=== PATIENT | female | born 1980 | race Native Hawaiian/Other Pacific Islander ===

== ENCOUNTER 2018-06-22 20:25 | Emergency (ER) | payer BC, OTHER ==
[2018-06-23] MEDS ORDERED: SODIUM CHLORIDE 0.9% 1,000 ML IV ONE (03:03)
[2018-06-23] MEDS ORDERED: LORazepam 2 MG/ML INJ IV STA (03:03)
--- NOTE | 2018-06-23 03:07 | ED ---
Alcohol HPI - General Chief Complaint: Alcohol Stated Complaint: Flank pain Time Seen by Provider: 06/22/18 21:08 Source: patient Mode of arrival: ambulatory Limitations: no limitations - History of Present Illness Initial Comments: Patient is 37-year-old woman presenting with complaint of concerns about her drinking. She been drinking constantly for 8 days. Last drink just previously. She denies any recent fall or trauma. She does have complaint that she is feeling anxious about stopping. Patient denies suicidal ideation. MD Complaint: alcohol intoxication Last Drink: just [employer] Previous Visits for Alcohol Intoxication?: No Recent Trauma: No Associated Symptoms: other (Anxiety) Treatments Prior to Arrival: none - Related Data Home Medications Medication Instructions Recorded Confirmed Citalopram Hydrobromide [CeleXA] 10 mg PO DAILY 07/26/15 07/26/15 Previous Rx's Medication Instructions Recorded Ciprofloxacin HCl [Cipro] 500 mg PO Q12HR #14 tablet 07/26/15 LORazepam [Ativan] 1 mg PO TID 3 Days #9 tab 06/23/18 chlordiazePOXIDE HCl [Librium] 25 mg PO TID 3 Days #9 capsule 06/23/18 Allergies Allergy/AdvReac Type Severity Reaction Status Date / Time No Known Allergies Allergy Verified 06/22/18 20:46 Review of Systems ROS Statement: Those systems with pertinent positive or pertinent negative responses have been documented in the HPI. ROS Other: All systems not noted in ROS Statement are negative. Constitutional: Denies: fever, chills Eyes: Denies: vision change Respiratory: Denies: cough, dyspnea Cardiovascular: Denies: chest pain, syncope Gastrointestinal: Denies: abdominal pain, vomiting, diarrhea Musculoskeletal: Denies: back pain Skin: Denies: rash Neurological: Denies: headache Psychiatric: Reports: anxiety. Denies: auditory hallucinations, visual hallucinations, homicidal thoughts, suicidal thoughts Past Medical History Past Medical History: No Reported History History of Any Multi-Drug Resistant Organisms: None Reported Past Surgical History: Tonsillectomy Past Psychological History: Anxiety, Depression Smoking Status: Current every day smoker Past Alcohol Use History: Daily, Heavy Past Drug Use History: None Reported General Exam Limitations: no limitations General appearance: alert, in no apparent distress Head exam: Present: atraumatic, normocephalic Eye exam: Present: normal appearance. Absent: scleral icterus, conjunctival injection ENT exam: Present: normal oropharynx Neck exam: Present: normal inspection, full ROM. Absent: tenderness Respiratory exam: Present: normal lung sounds bilaterally. Absent: respiratory distress, wheezes, rales, rhonchi, stridor Cardiovascular Exam: Present: regular rate, normal rhythm, normal heart sounds. Absent: systolic murmur, diastolic murmur, rubs, gallop GI/Abdominal exam: Present: soft. Absent: distended, tenderness, guarding, rebound Neurological exam: Present: alert Psychiatric exam: Present: anxious. Absent: homicidal ideation, suicidal ideation Skin exam: Present: warm, dry, intact, normal color. Absent: rash Course Vital Signs 06/22/18 06/23/18 06/23/18 20:41 01:58 06:21 Temperature 97.8 F 97.3 F L Pulse Rate 120 H 117 H 16 L Respiratory 22 16 93 H Rate Blood Pressure 153/107 117/84 110/80 O2 Sat by Pulse 99 100 Oximetry Medical Decision Making - Medical Decision Making Patient seen and evaluated. Currently no admission criteria. Patient is given medication for her anxiety and help to bridge her until she can be seen [facility] which she plans present to in the morning. - Lab Data Lab Results 06/23/18 Range/Units 03:01 Urine Color Colorless Urine Appearance Clear (Clear) Urine pH 6.5 (5.0-8.0) Ur Specific [place] 1.002 (1.001-1.035) Urine Protein Negative (Negative) Urine Glucose (UA) Negative (Negative) Urine Ketones Negative (Negative) Urine Blood Negative (Negative) Urine Nitrite Negative (Negative) Urine Bilirubin Negative (Negative) Urine Urobilinogen <2.0 (<2.0) mg/dL Ur Leukocyte Esterase Negative (Negative) Urine Opiates Screen Not Detected (NotDetected) Ur Oxycodone Screen Not Detected (NotDetected) Urine Methadone Screen Not Detected (NotDetected) Ur Propoxyphene Screen Not Detected (NotDetected) Ur Barbiturates Screen Not Detected (NotDetected) U Tricyclic Antidepress Not Detected (NotDetected) Ur Phencyclidine Scrn Not Detected (NotDetected) Ur Amphetamines Screen Not Detected (NotDetected) U Methamphetamines Scrn Not Detected (NotDetected) U Benzodiazepines Scrn Not Detected (NotDetected) Urine Cocaine Screen Not Detected (NotDetected) U Marijuana (THC) Screen Not Detected (NotDetected) Disposition Clinical Impression: Alcoholic intoxication Disposition: HOME SELF-CARE Condition: Good Instructions: Alcohol Intoxication (ED) Prescriptions: chlordiazePOXIDE HCl [Librium] 25 mg PO TID 3 Days #9 capsule LORazepam [Ativan] 1 mg PO TID 3 Days #9 tab Is patient prescribed a controlled substance at d/c from ED?: No Referrals: Isaias Johnson MD [Primary Care Provider] - 1-2 days
[2018-06-23 03:14] LABS: Appearance,Urine Clear (Clear); Bilirubin,Urine Negative (Negative); Blood,Urine Negative (Negative); Color,Urine Colorless; Glucose,Urine (UA) Negative (Negative); Ketones,Urine Negative (Negative); Leukocyte Esterase,Urine Negative (Negative); Nitrite,Urine Negative (Negative); PH, Urine 6.5 (5.0-8.0); Protein,Urine Negative (Negative); Specific Gravity,Urine 1.002 (1.001-1.035); Urobilinogen,Urine <2.0 mg/dL (<2.0)
[2018-06-23] MEDS ORDERED: chlordiazePOXIDE 25 MG CAP PO ONE (03:15)
[2018-06-23 03:39] LABS: Amphetamine Screen,Urine Not Detected (NotDetected); Barbiturate Screen,Urine Not Detected (NotDetected); Benzodiazepines Screen,Urine Not Detected (NotDetected); Cocaine Screen,Urine Not Detected (NotDetected); Methadone Screen, Urine Not Detected (NotDetected); Opiate Screen,Urine Not Detected (NotDetected); Oxycodone Screen, Urine Not Detected (NotDetected); Phencyclidine Screen,Urine Not Detected (NotDetected); Tricyclic Antidepressant,Urine Not Detected (NotDetected); Urn Cannabinoid Scrn Not Detected (NotDetected)
[2018-06-23] MEDS ORDERED: ONDANSETRON 4 MG/2 ML VIAL IVP STA (03:54)
[2018-06-23 06:22] VITALS: BP 110/80; PULSE 16; RESP 93; TEMP 97.3
== END 2018-06-23 06:21 | disposition home or self-care (01) ==
LOC: EC 20:25
DX: F10.129 Alcohol abuse with intoxication, unspecified (principal); F41.9 Anxiety disorder, unspecified; F32.9 Major depressive disorder, single episode, unspecified; F17.200 Nicotine dependence, unspecified, uncomplicated; Z79.899 Other long term (current) drug therapy
CPT/HCPCS: 81003; 80306; 99284; 96374; 96375; 96361; J2060; J2405; 82075

== ENCOUNTER 2021-12-21 15:16 | Emergency (ER) | payer OTHER ==
[2021-12-21 17:15] LABS: Appearance,Urine Clear (Clear); Bilirubin,Urine Negative (Negative); Blood,Urine Negative (Negative); Color,Urine Yellow; Glucose,Urine (UA) Negative (Negative); Ketones,Urine Trace (Negative); Leukocyte Esterase,Urine Negative (Negative); Nitrite,Urine Negative (Negative); Protein,Urine Trace (Negative); Specific Gravity,Urine 1.015 (1.001-1.035); Urobilinogen,Urine <2.0 mg/dL (<2.0)
[2021-12-21] MEDS ORDERED: SODIUM CHLORIDE 0.9% 1,000 ML IV STA (18:16)
[2021-12-21 18:46] LABS: Basophils % (A) 0 %; Eosinophils # (A) 0.1 k/uL (0-0.7); Eosinophils % (A) 1 %; HCT 37.5 % (34.0-46.0); HGB 12.1 gm/dL (11.4-16.0); Lymphocytes # (A) 1.8 k/uL (1.0-4.8); Lymphocytes % (A) 21 %; MCHC 32.2 g/dL (31.0-37.0); MCV 96.1 fL (80.0-100.0); Mean Platelet Volume 8.3; Monocytes # (A) 0.3 k/uL (0-1.0); Monocytes % (A) 3 %; Neutrophils # (A) 6.6 k/uL (1.3-7.7); Neutrophils % (A) 74 %; Platelet Count 154 k/uL (150-450); WBC 8.9 k/uL (3.8-10.6)
[2021-12-21 18:50] LABS: ALT 22 U/L (4-34); AST 37 U/L (14-36); African American GFR (CKD) >90 (>60 ml/min/1.73 sqM); Albumin 4.2 g/dL (3.5-5.0); Alkaline Phosphatase 122 U/L (38-126); Anion Gap 11 mmol/L; Blood Urea Nitrogen 7 mg/dL (7-17); Carbon Dioxide 18 mmol/L (22-30); Chloride 105 mmol/L (98-107); Glucose 89 mg/dL (74-99); Non-African American GFR(CKD) >90 (>60 ml/min/1.73 sqM); Potassium 3.5 mmol/L (3.5-5.1); Sodium 134 mmol/L (137-145); Total Bilirubin 4.3 mg/dL (0.2-1.3)
--- NOTE | 2021-12-21 19:22 | ED ---
Nausea/Vomiting/Diarrhea HPI - General Source: patient, RN notes reviewed Mode of arrival: ambulatory Limitations: no limitations - History of Present Illness MD complaint: nausea, vomiting Onset/Timin -: days(s) Description of Vomiting: bilious Associated Abdominal Pain: Yes Location: RUQ <Susanna Wright - Last Filed: 12/21/21 19:37> <Blade Ovalles - Last Filed: 12/21/21 20:39> - General Chief complaint: Nausea/Vomiting/Diarrhea Stated complaint: Vomiting, Abdominal Pain, Liver History Time Seen by Provider: 12/21/21 16:22 - History of Present Illness Initial comments: This is a 41-year-old female who presents to the emergency department for nausea and vomiting. Patient states that last night she had a significant bout of nausea and vomiting with associated right upper quadrant pain. She does have known gallstones and a history of liver disease. She also states that she has stage II esophageal varices, which is a concern with the repeated vomiting. Her primary care provider advised she come to the emergency department to have her liver enzymes reassessed. She has not had imaging of the gallbladder in several years, and states that because of the liver disease, she was told that removing the gallbladder could end up being a fatal procedure. By the time the patient was evaluated in the emergency department, her symptoms had subsided quite substantially. Denies any fevers, chills, sore throat, cough, dyspnea, chest pain, palpitations, diarrhea, back pain, or headaches. (Susanna Wright) - Related Data Home Medications Medication Instructions Recorded Confirmed Citalopram Hydrobromide [CeleXA] 10 mg PO DAILY 07/26/15 07/26/15 Previous Rx's Medication Instructions Recorded Ciprofloxacin HCl [Cipro] 500 mg PO Q12HR #14 tablet 07/26/15 LORazepam [Ativan] 1 mg PO TID 3 Days #9 tab 06/23/18 chlordiazePOXIDE HCl [Librium] 25 mg PO TID 3 Days #9 capsule 06/23/18 Allergies Allergy/AdvReac Type Severity Reaction Status Date / Time No Known Allergies Allergy Verified 12/21/21 15:52 Review of Systems ROS Other: All systems not noted in ROS Statement are negative. <Susanna Wright - Last Filed: 12/21/21 19:37> ROS Other: All systems not noted in ROS Statement are negative. <Blade Ovalles - Last Filed: 12/21/21 20:39> ROS Statement: Those systems with pertinent positive or pertinent negative responses have been documented in the HPI. Past Medical History Past Medical History: Liver Disease History of Any Multi-Drug Resistant Organisms: None Reported Past Surgical History: Tonsillectomy Past Psychological History: Anxiety, Depression Smoking Status: Former smoker Past Alcohol Use History: Daily, Heavy Past Drug Use History: None Reported <Susanna Wright - Last Filed: 12/21/21 19:37> General Exam Limitations: no limitations General appearance: alert, in no apparent distress Head exam: Present: atraumatic, normocephalic, normal inspection Respiratory exam: Present: normal lung sounds bilaterally. Absent: respiratory distress, wheezes, rales, rhonchi, stridor Cardiovascular Exam: Present: regular rate, normal rhythm, normal heart sounds. Absent: systolic murmur, diastolic murmur, rubs, gallop, clicks GI/Abdominal exam: Present: soft, tenderness (RUQ), normal bowel sounds. Absent: distended, guarding, rebound, rigid Neurological exam: Present: alert, oriented X3, CN II-XII intact Psychiatric exam: Present: normal affect, normal mood Skin exam: Present: warm, dry, intact, normal color. Absent: rash <Susanna Wright - Last Filed: 12/21/21 19:37> Course Vital Signs 12/21/21 12/21/21 15:49 18:32 Temperature 98.3 F Pulse Rate 90 95 Respiratory 16 16 Rate Blood Pressure 109/69 113/53 O2 Sat by Pulse 99 100 Oximetry Medical Decision Making - Lab Data Result diagrams: 12/21/21 18:36 12/21/21 18:36 - Radiology Data Radiology results: report reviewed, image reviewed <Susanna Wright - Last Filed: 12/21/21 19:37> - Lab Data Result diagrams: 12/21/21 18:36 12/21/21 18:36 <Blade Ovalles - Last Filed: 12/21/21 20:39> - Medical Decision Making This is a 41-year-old female who presents to the emergency department with nausea and vomiting. Lab work reveals an elevated total bilirubin. Fractionated bilirubin obtained, revealing an unconjugated bilirubin of 3.3 and a delta bilirubin of 0.9. Gallbladder US obtained. Case signed out to ED attending. (Susanna Wright) Patient was sent out to me by previous shift physician professional nursing assistant, Lisa christopher. Briefly, patient is a 41-year-old female presents to the emergency department for nausea and vomiting. She has history of esophageal varices. She had a discussion with her primary care doctor and was instructed to come to the ER for evaluation. Patient allegedly has a large esophageal varices that PCP is concerned that if she continued to have retching and vomiting that she could have bleeding from one of these variceal sites. Plan [place] follow-up with ultrasound. Ultrasound shows cholelithiasis without any acute abdominal processes. There also appears to be hepatic steatosis. Labs are unremarkable. Her liver enzymes are normal. Urinalysis is negative. Patient was observed in the emergency department for approximately 5 hours and 15 minutes. She is reevaluated bedside 8:35 PM finally to medical condition. Patient will be discharged and advised follow primary care doctor. Return precautions discussed. (Blade Ovalles) - Lab Data Lab Results 12/21/21 12/21/21 12/21/21 Range/Units 16:02 16:02 18:36 WBC 8.9 (3.8-10.6) k/uL RBC 3.90 (3.80-5.40) m/uL Hgb 12.1 (11.4-16.0) gm/dL Hct 37.5 (34.0-46.0) % MCV 96.1 (80.0-100.0) fL MCH 31.0 (25.0-35.0) pg MCHC 32.2 (31.0-37.0) g/dL RDW 16.0 H (11.5-15.5) % Plt Count 154 (150-450) k/uL MPV 8.3 Neutrophils % 74 % Lymphocytes % 21 % Monocytes % 3 % Eosinophils % 1 % Basophils % 0 % Neutrophils # 6.6 (1.3-7.7) k/uL Lymphocytes # 1.8 (1.0-4.8) k/uL Monocytes # 0.3 (0-1.0) k/uL Eosinophils # 0.1 (0-0.7) k/uL Basophils # 0.0 (0-0.2) k/uL Sodium (137-145) mmol/L Potassium (3.5-5.1) mmol/L Chloride (98-107) mmol/L Carbon Dioxide (22-30) mmol/L Anion Gap mmol/L BUN (7-17) mg/dL Creatinine (0.52-1.04) mg/dL Est GFR (CKD-EPI)AfAm (>60 ml/min/1.73 sqM) Est GFR (CKD-EPI)NonAf (>60 ml/min/1.73 sqM) Glucose (74-99) mg/dL Calcium (8.4-10.2) mg/dL Total Bilirubin (0.2-1.3) mg/dL Conjugated Bilirubin (0.0-0.3) mg/dL Unconjugated Bilirubin (0.0-1.1) mg/dL Delta Bilirubin (0.0-0.2) mg/dL AST (14-36) U/L ALT (4-34) U/L Alkaline Phosphatase (38-126) U/L Total Protein (6.3-8.2) g/dL Albumin (3.5-5.0) g/dL Urine Color Yellow Urine Appearance Clear (Clear) Urine pH 6.0 (5.0-8.0) Ur Specific [place] 1.015 (1.001-1.035) Urine Protein Trace H (Negative) Urine Glucose (UA) Negative (Negative) Urine Ketones Trace H (Negative) Urine Blood Negative (Negative) Urine Nitrite Negative (Negative) Urine Bilirubin Negative (Negative) Urine Urobilinogen <2.0 (<2.0) mg/dL Ur Leukocyte Esterase Negative (Negative) Urine HCG, Qual Not Detected (Not Detectd) 12/21/21 12/21/21 Range/Units 18:36 19:25 WBC (3.8-10.6) k/uL RBC (3.80-5.40) m/uL Hgb (11.4-16.0) gm/dL Hct (34.0-46.0) % MCV (80.0-100.0) fL MCH (25.0-35.0) pg MCHC (31.0-37.0) g/dL RDW (11.5-15.5) % Plt Count (150-450) k/uL MPV Neutrophils % % Lymphocytes % % Monocytes % % Eosinophils % % Basophils % % Neutrophils # (1.3-7.7) k/uL Lymphocytes # (1.0-4.8) k/uL Monocytes # (0-1.0) k/uL Eosinophils # (0-0.7) k/uL Basophils # (0-0.2) k/uL Sodium 134 L (137-145) mmol/L Potassium 3.5 (3.5-5.1) mmol/L Chloride 105 (98-107) mmol/L Carbon Dioxide 18 L (22-30) mmol/L Anion Gap 11 mmol/L BUN 7 (7-17) mg/dL Creatinine 0.62 (0.52-1.04) mg/dL Est GFR (CKD-EPI)AfAm >90 (>60 ml/min/1.73 sqM) Est GFR (CKD-EPI)NonAf >90 (>60 ml/min/1.73 sqM) Glucose 89 (74-99) mg/dL Calcium 9.0 (8.4-10.2) mg/dL Total Bilirubin 4.3 H 4.2 H (0.2-1.3) mg/dL Conjugated Bilirubin 0.0 (0.0-0.3) mg/dL Unconjugated Bilirubin 3.3 H (0.0-1.1) mg/dL Delta Bilirubin 0.9 H (0.0-0.2) mg/dL AST 37 H (14-36) U/L ALT 22 (4-34) U/L Alkaline Phosphatase 122 (38-126) U/L Total Protein 8.0 (6.3-8.2) g/dL Albumin 4.2 (3.5-5.0) g/dL Urine Color Urine Appearance (Clear) Urine pH (5.0-8.0) Ur Specific [place] (1.001-1.035) Urine Protein (Negative) Urine Glucose (UA) (Negative) Urine Ketones (Negative) Urine Blood (Negative) Urine Nitrite (Negative) Urine Bilirubin (Negative) Urine Urobilinogen (<2.0) mg/dL Ur Leukocyte Esterase (Negative) Urine HCG, Qual (Not Detectd) Disposition <Susanna Wright - Last Filed: 12/21/21 19:37> Is patient prescribed a controlled substance at d/c from ED?: No Time of Disposition: 20:39 <Blade Ovalles - Last Filed: 12/21/21 20:39> Clinical Impression: Nausea & vomiting Disposition: HOME SELF-CARE Condition: Good Instructions (If sedation given, give patient instructions): Acute Nausea and Vomiting (ED) Referrals: Isaias Johnson MD [Primary Care Provider] - 1-2 days
[2021-12-21 19:31] LABS: Bilirubin, Delta 0.9 mg/dL (0.0-0.2); Bilirubin,Unconjugated 3.3 mg/dL (0.0-1.1); Total Bilirubin 4.2 mg/dL (0.2-1.3)
--- NOTE | 2021-12-21 20:24 | US ---
EXAMINATION TYPE: US gallbladder DATE OF EXAM: 12/21/2021 COMPARISON: Gallbladder ultrasound CLINICAL HISTORY: Known gallstones, worsening pain. History of gallstones. RUQ pain, vomiting EXAM MEASUREMENTS: Liver Length: 11.8 cm Gallbladder Wall: 0.5 cm CBD: 0.6 cm Right Kidney: 11.5 x 4.0 x 4.4 cm Pancreas: Tail obscured by overlying bowel gas Liver: Heterogenous appearance. Gallbladder: stones, thickened GB wall Evidence for sonographic Murrell's sign: no CBD: upper limits of normal Right Kidney: no evidence of hydronephrosis IMPRESSION: 1. Cholelithiasis without evidence for acute abdominal process. 2. Hepatic steatosis.
[2021-12-21 20:47] VITALS: BP 105/53; PULSE 78; RESP 18; TEMP 97.9
== END 2021-12-21 20:42 | disposition home or self-care (01) ==
LOC: EC 15:16
DX: R11.2 Nausea with vomiting, unspecified (principal); Z87.891 Personal history of nicotine dependence
CPT/HCPCS: 36415; 76705; 80053; 81003; 81025; 82248; 85025; 96360; 99284

== ENCOUNTER 2021-12-25 10:10 | Emergency (ER) | payer OTHER ==
[2021-12-25 10:18] VITALS: TEMP 98.8
[2021-12-25] MEDS ORDERED: SODIUM CHLORIDE 0.9% 1,000 ML IV STA (10:56)
[2021-12-25] MEDS ORDERED: ONDANSETRON 4 MG/2 ML VIAL IVP STA (10:56)
[2021-12-25 11:48] LABS: Basophils % (A) 1 %; Eosinophils % (A) 1 %; HCT 35.5 % (34.0-46.0); HGB 11.6 gm/dL (11.4-16.0); Lymphocytes # (A) 0.6 k/uL (1.0-4.8); Lymphocytes % (A) 12 %; MCH 31.4 pg (25.0-35.0); MCHC 32.8 g/dL (31.0-37.0); MCV 95.6 fL (80.0-100.0); Mean Platelet Volume 8.4; Monocytes # (A) 0.1 k/uL (0-1.0); Monocytes % (A) 3 %; Neutrophils % (A) 83 %; Platelet Count 108 k/uL (150-450); RBC 3.72 m/uL (3.80-5.40); RDW 15.4 % (11.5-15.5); WBC 4.9 k/uL (3.8-10.6)
[2021-12-25 11:56] LABS: ALT 21 U/L (4-34); AST 33 U/L (14-36); African American GFR (CKD) >90 (>60 ml/min/1.73 sqM); Albumin 3.8 g/dL (3.5-5.0); Alkaline Phosphatase 111 U/L (38-126); Amylase 92 U/L (30-110); Anion Gap 10 mmol/L; Blood Urea Nitrogen 9 mg/dL (7-17); Calcium 8.8 mg/dL (8.4-10.2); Carbon Dioxide 19 mmol/L (22-30); Chloride 109 mmol/L (98-107); Glucose 119 mg/dL (74-99); Lipase 207 U/L (23-300); Non-African American GFR(CKD) >90 (>60 ml/min/1.73 sqM); Potassium 3.4 mmol/L (3.5-5.1); Sodium 138 mmol/L (137-145); Total Bilirubin 3.6 mg/dL (0.2-1.3); Total Protein 7.4 g/dL (6.3-8.2)
[2021-12-25 12:00] LABS: INR 1.2 (<1.2); Partial Thromboplastin Time 29.1 sec (22.0-30.0); Prothrombin Time 12.9 sec (9.0-12.0)
--- NOTE | 2021-12-25 12:02 | ED ---
Abdominal Pain HPI - General Chief Complaint: Abdominal Pain Stated Complaint: Vomiting,Nausea Time Seen by Provider: 12/25/21 10:43 Source: patient, EMS Mode of arrival: EMS Limitations: no limitations - History of Present Illness Initial Comments: Patient is a 41-year-old female with history of cirrhosis and gallstones presenting with chief complaint of nausea and vomiting. Patient was seen here on 12/21 with similar complaints, gallbladder ultrasound showed cholelithiasis and hepatic steatosis. Patient states that today she has 4 out of 10 right upper quadrant pain, but her main complaint is the nausea and vomiting. Patient has history of esophageal varices, states that she wants to get this under control so that it does not cause bleeding of the varices. She denies any fever, chills, chest pain, shortness of breath, palpitations, weakness, diarrhea, hematochezia, melena, dysuria, hematuria, urgency, frequency. - Related Data Home Medications Medication Instructions Recorded Confirmed Citalopram Hydrobromide [CeleXA] 10 mg PO DAILY 07/26/15 07/26/15 Previous Rx's Medication Instructions Recorded Ciprofloxacin HCl [Cipro] 500 mg PO Q12HR #14 tablet 07/26/15 LORazepam [Ativan] 1 mg PO TID 3 Days #9 tab 06/23/18 chlordiazePOXIDE HCl [Librium] 25 mg PO TID 3 Days #9 capsule 06/23/18 Ondansetron Odt [Zofran Odt] 4 mg PO Q8HR PRN #20 tab 12/25/21 Allergies Allergy/AdvReac Type Severity Reaction Status Date / Time No Known Allergies Allergy Verified 12/21/21 15:52 Review of Systems ROS Statement: Those systems with pertinent positive or pertinent negative responses have been documented in the HPI. ROS Other: All systems not noted in ROS Statement are negative. Past Medical History Past Medical History: Liver Disease Additional Past Medical History / Comment(s): some esophageal varices History of Any Multi-Drug Resistant Organisms: None Reported Past Surgical History: Tonsillectomy Past Psychological History: Anxiety, Depression Smoking Status: Former smoker Past Alcohol Use History: Daily, Heavy Past Drug Use History: None Reported General Exam Limitations: no limitations Course Vital Signs 12/25/21 12/25/21 12/25/21 10:12 12:39 14:35 Temperature 98.8 F 98.8 F Pulse Rate 83 91 91 Respiratory 18 16 16 Rate Blood Pressure 113/68 126/81 126/81 O2 Sat by Pulse 99 98 98 Oximetry Medical Decision Making - Medical Decision Making Patient is a 41-year-old female presenting with chief complaint of nausea and vomiting that started this morning. Patient has a history of cholelithiasis, cirrhosis, and esophageal varices. She is complaining of 4 out of 10 abdominal pain. On examination there is some tenderness in the right upper quadrant. No leukocytosis. PT 12.9 INR 1.2. Potassium 3.4. Lactic acid 2.1, likely due to dehydration, patient is receiving IV fluids. Bilirubin is 3.6, comparable to last visit. UA is neg, LFTs not elevated. Patient received zofran and reglan, she reports improvement in symptoms. US shows GB full of gallstones and mortensen are at the upper limits of normal, her CBD is elevated for her age group. I discussed these findings with my attending, since patient is having improved symptoms and her labs are stable compared to other recent visit, the plan will be to dc and have her follow up with GI. Patient has GI specialist she follows with. Follow up with GI and PCP in 1-2 days, report back to ER with any new or worsening symptoms. Discussed return parameters and answered all questions. Patient conveyed verbal understanding and agreed to the plan. I discussed this case and plan in detail with my attending Dr. Ovalles. - Lab Data Result diagrams: 12/25/21 11:36 12/25/21 11:35 Lab Results 12/25/21 12/25/21 12/25/21 Range/Units 11:35 11:35 11:35 WBC (3.8-10.6) k/uL RBC (3.80-5.40) m/uL Hgb (11.4-16.0) gm/dL Hct (34.0-46.0) % MCV (80.0-100.0) fL MCH (25.0-35.0) pg MCHC (31.0-37.0) g/dL RDW (11.5-15.5) % Plt Count (150-450) k/uL MPV Neutrophils % % Lymphocytes % % Monocytes % % Eosinophils % % Basophils % % Neutrophils # (1.3-7.7) k/uL Lymphocytes # (1.0-4.8) k/uL Monocytes # (0-1.0) k/uL Eosinophils # (0-0.7) k/uL Basophils # (0-0.2) k/uL PT 12.9 H (9.0-12.0) sec INR 1.2 H (<1.2) APTT 29.1 (22.0-30.0) sec Sodium 138 (137-145) mmol/L Potassium 3.4 L (3.5-5.1) mmol/L Chloride 109 H (98-107) mmol/L Carbon Dioxide 19 L (22-30) mmol/L Anion Gap 10 mmol/L BUN 9 (7-17) mg/dL Creatinine 0.51 L (0.52-1.04) mg/dL Est GFR (CKD-EPI)AfAm >90 (>60 ml/min/1.73 sqM) Est GFR (CKD-EPI)NonAf >90 (>60 ml/min/1.73 sqM) Glucose 119 H (74-99) mg/dL Lactic Ac Sepsis Rflx Plasma Lactic Acid Vinay 2.1 H* (0.7-2.0) mmol/L Calcium 8.8 (8.4-10.2) mg/dL Total Bilirubin 3.6 H (0.2-1.3) mg/dL Conjugated Bilirubin (0.0-0.3) mg/dL Unconjugated Bilirubin (0.0-1.1) mg/dL Delta Bilirubin (0.0-0.2) mg/dL AST 33 (14-36) U/L ALT 21 (4-34) U/L Alkaline Phosphatase 111 (38-126) U/L Total Protein 7.4 (6.3-8.2) g/dL Albumin 3.8 (3.5-5.0) g/dL Amylase 92 (30-110) U/L Lipase 207 (23-300) U/L Urine Color Urine Appearance (Clear) Urine pH (5.0-8.0) Ur Specific [place] (1.001-1.035) Urine Protein (Negative) Urine Glucose (UA) (Negative) Urine Ketones (Negative) Urine Blood (Negative) Urine Nitrite (Negative) Urine Bilirubin (Negative) Urine Urobilinogen (<2.0) mg/dL Ur Leukocyte Esterase (Negative) Urine HCG, Qual (Not Detectd) 12/25/21 12/25/21 12/25/21 Range/Units 11:36 11:58 12:39 WBC 4.9 (3.8-10.6) k/uL RBC 3.72 L (3.80-5.40) m/uL Hgb 11.6 (11.4-16.0) gm/dL Hct 35.5 (34.0-46.0) % MCV 95.6 (80.0-100.0) fL MCH 31.4 (25.0-35.0) pg MCHC 32.8 (31.0-37.0) g/dL RDW 15.4 (11.5-15.5) % Plt Count 108 L (150-450) k/uL MPV 8.4 Neutrophils % 83 % Lymphocytes % 12 % Monocytes % 3 % Eosinophils % 1 % Basophils % 1 % Neutrophils # 4.0 (1.3-7.7) k/uL Lymphocytes # 0.6 L (1.0-4.8) k/uL Monocytes # 0.1 (0-1.0) k/uL Eosinophils # 0.0 (0-0.7) k/uL Basophils # 0.0 (0-0.2) k/uL PT (9.0-12.0) sec INR (<1.2) APTT (22.0-30.0) sec Sodium (137-145) mmol/L Potassium (3.5-5.1) mmol/L Chloride (98-107) mmol/L Carbon Dioxide (22-30) mmol/L Anion Gap mmol/L BUN (7-17) mg/dL Creatinine (0.52-1.04) mg/dL Est GFR (CKD-EPI)AfAm (>60 ml/min/1.73 sqM) Est GFR (CKD-EPI)NonAf (>60 ml/min/1.73 sqM) Glucose (74-99) mg/dL Lactic Ac Sepsis Rflx Y Plasma Lactic Acid Vinay (0.7-2.0) mmol/L Calcium (8.4-10.2) mg/dL Total Bilirubin 3.6 H (0.2-1.3) mg/dL Conjugated Bilirubin 0.0 (0.0-0.3) mg/dL Unconjugated Bilirubin 2.7 H (0.0-1.1) mg/dL Delta Bilirubin 0.9 H (0.0-0.2) mg/dL AST (14-36) U/L ALT (4-34) U/L Alkaline Phosphatase (38-126) U/L Total Protein (6.3-8.2) g/dL Albumin (3.5-5.0) g/dL Amylase (30-110) U/L Lipase (23-300) U/L Urine Color Urine Appearance (Clear) Urine pH (5.0-8.0) Ur Specific [place] (1.001-1.035) Urine Protein (Negative) Urine Glucose (UA) (Negative) Urine Ketones (Negative) Urine Blood (Negative) Urine Nitrite (Negative) Urine Bilirubin (Negative) Urine Urobilinogen (<2.0) mg/dL Ur Leukocyte Esterase (Negative) Urine HCG, Qual (Not Detectd) 12/25/21 12/25/21 Range/Units 13:22 13:22 WBC (3.8-10.6) k/uL RBC (3.80-5.40) m/uL Hgb (11.4-16.0) gm/dL Hct (34.0-46.0) % MCV (80.0-100.0) fL MCH (25.0-35.0) pg MCHC (31.0-37.0) g/dL RDW (11.5-15.5) % Plt Count (150-450) k/uL MPV Neutrophils % % Lymphocytes % % Monocytes % % Eosinophils % % Basophils % % Neutrophils # (1.3-7.7) k/uL Lymphocytes # (1.0-4.8) k/uL Monocytes # (0-1.0) k/uL Eosinophils # (0-0.7) k/uL Basophils # (0-0.2) k/uL PT (9.0-12.0) sec INR (<1.2) APTT (22.0-30.0) sec Sodium (137-145) mmol/L Potassium (3.5-5.1) mmol/L Chloride (98-107) mmol/L Carbon Dioxide (22-30) mmol/L Anion Gap mmol/L BUN (7-17) mg/dL Creatinine (0.52-1.04) mg/dL Est GFR (CKD-EPI)AfAm (>60 ml/min/1.73 sqM) Est GFR (CKD-EPI)NonAf (>60 ml/min/1.73 sqM) Glucose (74-99) mg/dL Lactic Ac Sepsis Rflx Plasma Lactic Acid Vinay (0.7-2.0) mmol/L Calcium (8.4-10.2) mg/dL Total Bilirubin (0.2-1.3) mg/dL Conjugated Bilirubin (0.0-0.3) mg/dL Unconjugated Bilirubin (0.0-1.1) mg/dL Delta Bilirubin (0.0-0.2) mg/dL AST (14-36) U/L ALT (4-34) U/L Alkaline Phosphatase (38-126) U/L Total Protein (6.3-8.2) g/dL Albumin (3.5-5.0) g/dL Amylase (30-110) U/L Lipase (23-300) U/L Urine Color Yellow Urine Appearance Clear (Clear) Urine pH 7.5 (5.0-8.0) Ur Specific [place] 1.014 (1.001-1.035) Urine Protein Negative (Negative) Urine Glucose (UA) Negative (Negative) Urine Ketones Negative (Negative) Urine Blood Negative (Negative) Urine Nitrite Negative (Negative) Urine Bilirubin Negative (Negative) Urine Urobilinogen 2.0 (<2.0) mg/dL Ur Leukocyte Esterase Negative (Negative) Urine HCG, Qual Not Detected (Not Detectd) Disposition Clinical Impression: Nausea & vomiting Disposition: HOME SELF-CARE Condition: Good Instructions (If sedation given, give patient instructions): Acute Nausea and Vomiting (ED), Acute Abdominal Pain (ED) Additional Instructions: Follow-up with PCP and your GI specialist. Report back to ER with any new or w orsening symptoms. Take medication as prescribed. Prescriptions: Ondansetron Odt [Zofran Odt] 4 mg PO Q8HR PRN #20 tab PRN Reason: Nausea Is patient prescribed a controlled substance at d/c from ED?: No Referrals: Isaias Johnson MD [Primary Care Provider] - 1-2 days Time of Disposition: 13:44
--- NOTE | 2021-12-25 12:28 | US ---
EXAMINATION TYPE: US abdomen limited DATE OF EXAM: 12/25/2021 COMPARISON: CLINICAL HISTORY: ROQ pain, vomiting. Known gallstones. EXAM MEASUREMENTS: Liver Length: 13.0 cm Gallbladder Wall: 0.3 cm CBD: 0.8 cm Right Kidney: 10.5 x 4.9 x 4.6 cm Pancreas: Head and tail obscured by overlying bowel gas Liver: Possible recanalization of the umbilical vein. Gallbladder: Large echogenic foci with shadowing Evidence for sonographic Murrell's sign: neg CBD: Dilated, limited visualization due to bowel gas Right Kidney: No hydronephrosis or masses seen IMPRESSION: 1. The gallbladder is full of gallstones. Gallbladder wall is at the upper limits of normal. No defin ite pericholecystic fluid. 2. Common bile duct is dilated for patient's age group.
[2021-12-25] MEDS ORDERED: SODIUM CHLORIDE 0.9% 1,000 ML IV SCH (12:30)
[2021-12-25] MEDS ORDERED: METOCLOPRAMIDE 5 MG/ML 2 ML VIAL IVP STA (12:30)
[2021-12-25 12:40] VITALS: BP 126/81; PULSE 91; RESP 16
[2021-12-25 12:49] LABS: Bilirubin, Delta 0.9 mg/dL (0.0-0.2); Bilirubin,Unconjugated 2.7 mg/dL (0.0-1.1); Total Bilirubin 3.6 mg/dL (0.2-1.3)
[2021-12-25 14:10] LABS: Appearance,Urine Clear (Clear); Bilirubin,Urine Negative (Negative); Blood,Urine Negative (Negative); Color,Urine Yellow; Glucose,Urine (UA) Negative (Negative); Ketones,Urine Negative (Negative); Leukocyte Esterase,Urine Negative (Negative); Nitrite,Urine Negative (Negative); PH, Urine 7.5 (5.0-8.0); Protein,Urine Negative (Negative); Specific Gravity,Urine 1.014 (1.001-1.035)
== END 2021-12-25 14:35 | disposition home or self-care (01) ==
LOC: EC 10:10
DX: R11.2 Nausea with vomiting, unspecified (principal); F41.9 Anxiety disorder, unspecified; F32.A Depression, unspecified; Z87.891 Personal history of nicotine dependence; Z79.899 Other long term (current) drug therapy
CPT/HCPCS: 36415; 80053; 82150; 82248; 83605; 83690; 85025; 85610; 85730; 81003; 81025; 76705; 99284; 96374; 96375; 96361; J2765; J2405

== ENCOUNTER 2022-01-02 03:40 | Emergency (ER) | payer OTHER ==
[2022-01-02 03:43] VITALS: BP 138/78; PULSE 109; RESP 18; TEMP 98
[2022-01-02] MEDS ORDERED: SODIUM CHLORIDE 0.9% 1,000 ML IV STA (04:24)
[2022-01-02] MEDS ORDERED: PANTOPRAZOLE 40 MG/10 ML VIAL IVP STA (04:24)
[2022-01-02] MEDS ORDERED: ONDANSETRON 4 MG/2 ML VIAL IVP STA (04:24)
--- NOTE | 2022-01-02 04:25 | ED ---
Abdominal Pain HPI - General Chief Complaint: Abdominal Pain Stated Complaint: vomiting blood Time Seen by Provider: 01/02/22 04:23 Source: patient, RN notes reviewed, old records reviewed Mode of arrival: ambulatory - Related Data Home Medications Medication Instructions Recorded Confirmed Citalopram Hydrobromide [CeleXA] 10 mg PO DAILY 07/26/15 07/26/15 Previous Rx's Medication Instructions Recorded Ciprofloxacin HCl [Cipro] 500 mg PO Q12HR #14 tablet 07/26/15 LORazepam [Ativan] 1 mg PO TID 3 Days #9 tab 06/23/18 chlordiazePOXIDE HCl [Librium] 25 mg PO TID 3 Days #9 capsule 06/23/18 Ondansetron Odt [Zofran Odt] 4 mg PO Q8HR PRN #20 tab 12/25/21 Allergies Allergy/AdvReac Type Severity Reaction Status Date / Time No Known Allergies Allergy Verified 01/02/22 03:43 Review of Systems ROS Statement: Those systems with pertinent positive or pertinent negative responses have been documented in the HPI. ROS Other: All systems not noted in ROS Statement are negative. Past Medical History Past Medical History: Liver Disease Additional Past Medical History / Comment(s): some esophageal varices, gallstones History of Any Multi-Drug Resistant Organisms: None Reported Past Surgical History: Tonsillectomy Past Psychological History: Anxiety, Depression Smoking Status: Former smoker Past Alcohol Use History: Daily, Heavy Past Drug Use History: None Reported Course Vital Signs 01/02/22 03:42 Temperature 98 F Pulse Rate 109 H Respiratory 18 Rate Blood Pressure 138/78 O2 Sat by Pulse 98 Oximetry Disposition Clinical Impression: Eloped from emergency department Narrative: Patient eloped Disposition: Left W/O Being Seen by Phys Condition: Undetermined Is patient prescribed a controlled substance at d/c from ED?: No Referrals: Juliana Johnson MD [Primary Care Provider] - 1-2 days
== END 2022-01-02 04:47 | disposition left against medical advice (07) ==
LOC: EC 03:40
DX: Z53.21 Procedure and treatment not carried out due to patient leaving prior to being seen by health care provider (principal)
CPT/HCPCS: 99499

== ENCOUNTER 2022-01-22 09:12 | Emergency (ER) | payer OTHER ==
[2022-01-22] MEDS ORDERED: SODIUM CHLORIDE 0.9% 2,000 ML IV STA (09:34)
[2022-01-22] MEDS ORDERED: ONDANSETRON 4 MG/2 ML VIAL IVP STA (09:34)
--- NOTE | 2022-01-22 09:52 | ED ---
General Adult HPI - General Chief complaint: Nausea/Vomiting/Diarrhea Stated complaint: NVD Time Seen by Provider: 01/22/22 09:24 Source: patient, RN notes reviewed Mode of arrival: wheelchair Limitations: no limitations - History of Present Illness Initial comments: 41-year-old female presents emergency Department with chief complaint of nausea vomiting. Patient states that she has known liver disease states that she is followed by [facility] she states she has a coworker issues once they are hoping that they will continue cholecystomy no they stated that her liver was very unstable and they have not from this. Patient states that she is minimal to no pain states that she's cannot keep any fluids down. Patient denies fevers or chills no chest pain no back pain no flank pain. - Related Data Home Medications Medication Instructions Recorded Confirmed RX: Citalopram Hydrobromide 10 mg PO DAILY 07/26/15 07/26/15 [CeleXA] Previous Rx's Medication Instructions Recorded Ciprofloxacin HCl [Cipro] 500 mg PO Q12HR #14 tablet 07/26/15 LORazepam [Ativan] 1 mg PO TID 3 Days #9 tab 06/23/18 chlordiazePOXIDE HCl [Librium] 25 mg PO TID 3 Days #9 capsule 06/23/18 Ondansetron Odt [Zofran Odt] 4 mg PO Q8HR PRN #20 tab 12/25/21 Ondansetron Odt [Zofran Odt] 4 mg PO Q8HR PRN #14 tab 01/22/22 Allergies Allergy/AdvReac Type Severity Reaction Status Date / Time No Known Allergies Allergy Verified 01/22/22 09:16 Review of Systems ROS Statement: Those systems with pertinent positive or pertinent negative responses have been documented in the HPI. ROS Other: All systems not noted in ROS Statement are negative. Past Medical History Past Medical History: Liver Disease Additional Past Medical History / Comment(s): some esophageal varices, gallstones, History of Any Multi-Drug Resistant Organisms: None Reported Past Surgical History: Tonsillectomy Past Psychological History: Anxiety, Depression Smoking Status: Former smoker Past Alcohol Use History: Daily, Heavy Past Drug Use History: None Reported General Exam Limitations: no limitations General appearance: alert, in no apparent distress Head exam: Present: atraumatic, normocephalic, normal inspection Eye exam: Present: normal appearance, PERRL, EOMI. Absent: scleral icterus, conjunctival injection, periorbital swelling ENT exam: Present: normal exam, normal oropharynx, mucous membranes moist Neck exam: Present: normal inspection, full ROM. Absent: tenderness, meningismus, lymphadenopathy Respiratory exam: Present: normal lung sounds bilaterally. Absent: respiratory distress, wheezes, rales, rhonchi, stridor Cardiovascular Exam: Present: regular rate, normal rhythm, normal heart sounds. Absent: systolic murmur, diastolic murmur, rubs, gallop, clicks GI/Abdominal exam: Present: soft, normal bowel sounds. Absent: distended, tenderness, guarding, rebound, rigid Course Vital Signs 01/22/22 09:13 Temperature 97.9 F Pulse Rate 81 Respiratory 16 Rate Blood Pressure 115/76 O2 Sat by Pulse 99 Oximetry Medical Decision Making - Medical Decision Making 41-year-old female presented for nausea vomiting. Patient was well hydrated, given antiemetics feels greatly improved. Patient does have elevated bilirubin and liver enzymes though patient has liver cirrhosis, end-stage liver disease is closely followed by [facility]. Patient will be discharged in stable condition asymptomatic results. - Lab Data Result diagrams: 01/22/22 09:47 01/22/22 09:47 Lab Results 01/22/22 01/22/22 Range/Units 09:47 09:47 WBC 6.4 (3.8-10.6) k/uL RBC 3.93 (3.80-5.40) m/uL Hgb 12.0 (11.4-16.0) gm/dL Hct 36.8 (34.0-46.0) % MCV 93.6 (80.0-100.0) fL MCH 30.5 (25.0-35.0) pg MCHC 32.6 (31.0-37.0) g/dL RDW 15.6 H (11.5-15.5) % Plt Count 118 L (150-450) k/uL MPV 9.1 Neutrophils % 73 % Lymphocytes % 21 % Monocytes % 4 % Eosinophils % 1 % Basophils % 1 % Neutrophils # 4.7 (1.3-7.7) k/uL Lymphocytes # 1.3 (1.0-4.8) k/uL Monocytes # 0.2 (0-1.0) k/uL Eosinophils # 0.1 (0-0.7) k/uL Basophils # 0.1 (0-0.2) k/uL Sodium 137 (137-145) mmol/L Potassium 3.3 L (3.5-5.1) mmol/L Chloride 105 (98-107) mmol/L Carbon Dioxide 22 (22-30) mmol/L Anion Gap 10 mmol/L BUN 8 (7-17) mg/dL Creatinine 0.68 (0.52-1.04) mg/dL Est GFR (CKD-EPI)AfAm >90 (>60 ml/min/1.73 sqM) Est GFR (CKD-EPI)NonAf >90 (>60 ml/min/1.73 sqM) Glucose 109 H (74-99) mg/dL Calcium 8.7 (8.4-10.2) mg/dL Total Bilirubin 4.9 H (0.2-1.3) mg/dL AST 53 H (14-36) U/L ALT 35 H (4-34) U/L Alkaline Phosphatase 112 (38-126) U/L Total Protein 7.4 (6.3-8.2) g/dL Albumin 3.8 (3.5-5.0) g/dL Amylase 91 (30-110) U/L Lipase 327 H (23-300) U/L Disposition Clinical Impression: Nausea & vomiting, Chronic liver disease Disposition: HOME SELF-CARE Condition: Stable Instructions (If sedation given, give patient instructions): Acute Nausea and Vomiting (ED) Additional Instructions: Please return to the Emergency Department if symptoms worsen or any other concerns. Prescriptions: Ondansetron Odt [Zofran Odt] 4 mg PO Q8HR PRN #14 tab PRN Reason: Nausea Is patient prescribed a controlled substance at d/c from ED?: No Referrals: Shilpi Johnson MD [Primary Care Provider] - 1-2 days Time of Disposition: 14:09
[2022-01-22 10:01] LABS: Basophils # (A) 0.1 k/uL (0-0.2); Basophils % (A) 1 %; Eosinophils # (A) 0.1 k/uL (0-0.7); Eosinophils % (A) 1 %; HCT 36.8 % (34.0-46.0); Lymphocytes # (A) 1.3 k/uL (1.0-4.8); Lymphocytes % (A) 21 %; MCH 30.5 pg (25.0-35.0); MCHC 32.6 g/dL (31.0-37.0); MCV 93.6 fL (80.0-100.0); Mean Platelet Volume 9.1; Monocytes # (A) 0.2 k/uL (0-1.0); Monocytes % (A) 4 %; Neutrophils # (A) 4.7 k/uL (1.3-7.7); Neutrophils % (A) 73 %; Platelet Count 118 k/uL (150-450); RBC 3.93 m/uL (3.80-5.40); RDW 15.6 % (11.5-15.5); WBC 6.4 k/uL (3.8-10.6)
[2022-01-22 10:11] LABS: ALT 35 U/L (4-34); AST 53 U/L (14-36); African American GFR (CKD) >90 (>60 ml/min/1.73 sqM); Albumin 3.8 g/dL (3.5-5.0); Alkaline Phosphatase 112 U/L (38-126); Amylase 91 U/L (30-110); Anion Gap 10 mmol/L; Blood Urea Nitrogen 8 mg/dL (7-17); Calcium 8.7 mg/dL (8.4-10.2); Carbon Dioxide 22 mmol/L (22-30); Chloride 105 mmol/L (98-107); Glucose 109 mg/dL (74-99); Lipase 327 U/L (23-300); Non-African American GFR(CKD) >90 (>60 ml/min/1.73 sqM); Potassium 3.3 mmol/L (3.5-5.1); Sodium 137 mmol/L (137-145); Total Bilirubin 4.9 mg/dL (0.2-1.3); Total Protein 7.4 g/dL (6.3-8.2)
[2022-01-22] MEDS ORDERED: METOCLOPRAMIDE 5 MG/ML 2 ML VIAL IVP STA (12:09)
[2022-01-22] MEDS ORDERED: diphenhydrAMINE 50 MG/ML 1 ML VIAL IVP STA (12:09)
[2022-01-22 14:21] VITALS: BP 94/45; PULSE 73; RESP 18; TEMP 97.7
== END 2022-01-22 14:23 | disposition home or self-care (01) ==
LOC: EC 09:12
DX: K76.9 Liver disease, unspecified (principal); Z87.891 Personal history of nicotine dependence
CPT/HCPCS: 80053; 82150; 83690; 85025; 99284; 96374; 96375; 96361; J1200; J2765; J2405; 36415

== ENCOUNTER 2022-01-23 10:44 | Emergency (ER) | payer OTHER ==
[2022-01-23 10:48] VITALS: RESP 18; TEMP 98.2
[2022-01-23] MEDS ORDERED: SODIUM CHLORIDE 0.9% 1,000 ML IV STA ×2 (11:38→13:59)
[2022-01-23] MEDS ORDERED: METOCLOPRAMIDE 5 MG/ML 2 ML VIAL IVP STA (11:38)
[2022-01-23] MEDS ORDERED: diphenhydrAMINE 50 MG/ML 1 ML VIAL IVP STA (11:38)
[2022-01-23 12:09] LABS: Basophils % (A) 1 %; Eosinophils # (A) 0.1 k/uL (0-0.7); Eosinophils % (A) 2 %; HCT 36.6 % (34.0-46.0); HGB 11.8 gm/dL (11.4-16.0); Lymphocytes % (A) 20 %; MCH 30.4 pg (25.0-35.0); MCHC 32.3 g/dL (31.0-37.0); Mean Platelet Volume 8.6; Monocytes # (A) 0.3 k/uL (0-1.0); Monocytes % (A) 5 %; Neutrophils # (A) 3.4 k/uL (1.3-7.7); Neutrophils % (A) 70 %; Platelet Count 103 k/uL (150-450); RBC 3.89 m/uL (3.80-5.40); RDW 15.4 % (11.5-15.5); WBC 4.9 k/uL (3.8-10.6)
[2022-01-23 12:24] LABS: ALT 33 U/L (4-34); AST 54 U/L (14-36); African American GFR (CKD) >90 (>60 ml/min/1.73 sqM); Albumin 3.6 g/dL (3.5-5.0); Alkaline Phosphatase 107 U/L (38-126); Amylase 93 U/L (30-110); Anion Gap 12 mmol/L; Blood Urea Nitrogen 7 mg/dL (7-17); Calcium 8.8 mg/dL (8.4-10.2); Carbon Dioxide 20 mmol/L (22-30); Chloride 106 mmol/L (98-107); Glucose 117 mg/dL (74-99); Lipase 262 U/L (23-300); Non-African American GFR(CKD) >90 (>60 ml/min/1.73 sqM); Sodium 138 mmol/L (137-145); Total Bilirubin 4.2 mg/dL (0.2-1.3)
[2022-01-23] MEDS ORDERED: ONDANSETRON 4 MG/2 ML VIAL IVP STA ×2 (12:47→14:04)
--- NOTE | 2022-01-23 13:11 | ED ---
General Adult HPI - General Chief complaint: Abdominal Pain Stated complaint: Nausea Time Seen by Provider: 01/23/22 11:16 Source: patient, RN notes reviewed, old records reviewed Mode of arrival: ambulatory Limitations: no limitations - History of Present Illness Initial comments: Patient is a 41-year-old female with history of liver disease, gallstones, esophageal varices, presenting to emergency Department with complaints of continued nausea and vomiting. Patient was seen here yesterday for same complaint, she states she felt improvement after she was discharged home but then this morning continued to have nausea and vomiting. She denies abdominal pain. She does have known history of gallstones and liver disease, she follows with GI out of [facility], from [place]. 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 Denies any fevers or chills, no chest pain or shortness of breath, no diarrhea. There are no further complaints. - Related Data Home Medications Medication Instructions Recorded Confirmed Citalopram Hydrobromide [CeleXA] 10 mg PO DAILY 07/26/15 01/23/22 Pantoprazole [Protonix] 40 mg PO DAILY 01/23/22 01/23/22 Spironolactone [Aldactone] 25 mg PO DAILY 01/23/22 01/23/22 ursodioL [Ursodiol] 300 mg PO BID 01/23/22 01/23/22 Previous Rx's Medication Instructions Recorded Metoclopramide [Reglan] 10 mg PO TID PRN #15 tab 01/23/22 Allergies Allergy/AdvReac Type Severity Reaction Status Date / Time No Known Allergies Allergy Verified 01/23/22 12:10 Review of Systems ROS Statement: Those systems with pertinent positive or pertinent negative responses have been documented in the HPI. ROS Other: All systems not noted in ROS Statement are negative. Past Medical History Past Medical History: Liver Disease Additional Past Medical History / Comment(s): some esophageal varices, gallstones, History of Any Multi-Drug Resistant Organisms: None Reported Past Surgical History: Tonsillectomy Past Psychological History: Anxiety, Depression Smoking Status: Former smoker Past Alcohol Use History: Daily, Heavy Past Drug Use History: None Reported General Exam - General Exam Comments Initial Comments: GENERAL: Patient is well-developed and well-nourished. Patient is nontoxic and in no acute distress, but appears dehydrated. HEAD: Atraumatic, normocephalic. EYES: Pupils equal round and reactive to light, extraocular movements intact, sclera anicteric, conjunctiva are normal. Eyelids were unremarkable. ENT: TMs normal, nares patent, oropharynx clear without exudates. Dry mucous membranes. NECK: Normal range of motion, supple without lymphadenopathy or JVD. LUNGS: Unlabored respirations. Breath sounds clear to auscultation bilaterally and equal. No wheezes rales or rhonchi. HEART: Regular rate and rhythm without murmurs, rubs or gallops. ABDOMEN: Soft, nontender, normoactive bowel sounds. No guarding, no rebound. No masses appreciated. : Deferred MUSCULOSKELETAL: Normal extremities with adequate strength and normal range of motion, no pitting or edema. No clubbing or cyanosis. NEUROLOGICAL: Patient is alert and oriented x 3. Normal speech, normal gait. PSYCH: Normal mood, normal affect. SKIN: Warm, Dry, normal turgor, no rashes or lesions noted. Limitations: no limitations Course Vital Signs 01/23/22 01/23/22 01/23/22 10:46 12:27 14:42 Temperature 98.2 F Pulse Rate 74 70 Respiratory 18 18 Rate Blood Pressure 126/70 121/69 O2 Sat by Pulse 99 97 Oximetry Medical Decision Making - Medical Decision Making Patient is a 41-year-old female with history of liver disease, gallstones, presenting with nausea and vomiting 2 days. She was seen here yesterday for same thing. She follows with a GI doctor out of [facility]. Laboratory studies show a normal white count, bilirubin is elevated at 4.2 but this has been elevated in the past with known history of gallstones. Lipase has improved since yesterday. Potassium has decreased to 3.0. Patient given many doses of nausea medications and fluids. She reports very mild improvement in her symptoms, however no active vomiting. I did discuss case with Dr. 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 I spoke to the patient, she agrees with being discharged home. She will follow up with her GI doctor as an outpatient. Patient's vital signs remained stable. Patient discharged in stable condition. - Lab Data Result diagrams: 01/23/22 11:58 01/23/22 11:58 Lab Results 01/23/22 01/23/22 01/23/22 Range/Units 11:58 11:58 11:58 WBC 4.9 (3.8-10.6) k/uL RBC 3.89 (3.80-5.40) m/uL Hgb 11.8 (11.4-16.0) gm/dL Hct 36.6 (34.0-46.0) % MCV 94.0 (80.0-100.0) fL MCH 30.4 (25.0-35.0) pg MCHC 32.3 (31.0-37.0) g/dL RDW 15.4 (11.5-15.5) % Plt Count 103 L (150-450) k/uL MPV 8.6 Neutrophils % 70 % Lymphocytes % 20 % Monocytes % 5 % Eosinophils % 2 % Basophils % 1 % Neutrophils # 3.4 (1.3-7.7) k/uL Lymphocytes # 1.0 (1.0-4.8) k/uL Monocytes # 0.3 (0-1.0) k/uL Eosinophils # 0.1 (0-0.7) k/uL Basophils # 0.0 (0-0.2) k/uL Sodium 138 (137-145) mmol/L Potassium 3.0 L (3.5-5.1) mmol/L Chloride 106 (98-107) mmol/L Carbon Dioxide 20 L (22-30) mmol/L Anion Gap 12 mmol/L BUN 7 (7-17) mg/dL Creatinine 0.72 (0.52-1.04) mg/dL Est GFR (CKD-EPI)AfAm >90 (>60 ml/min/1.73 sqM) Est GFR (CKD-EPI)NonAf >90 (>60 ml/min/1.73 sqM) Glucose 117 H (74-99) mg/dL Calcium 8.8 (8.4-10.2) mg/dL Magnesium 1.5 L (1.6-2.3) mg/dL Total Bilirubin 4.2 H (0.2-1.3) mg/dL AST 54 H (14-36) U/L ALT 33 (4-34) U/L Alkaline Phosphatase 107 (38-126) U/L Total Protein 7.0 (6.3-8.2) g/dL Albumin 3.6 (3.5-5.0) g/dL Amylase 93 (30-110) U/L Lipase 262 (23-300) U/L Urine Color Urine Appearance (Clear) Urine pH (5.0-8.0) Ur Specific [place] (1.001-1.035) Urine Protein (Negative) Urine Glucose (UA) (Negative) Urine Ketones (Negative) Urine Blood (Negative) Urine Nitrite (Negative) Urine Bilirubin (Negative) Urine Urobilinogen (<2.0) mg/dL Ur Leukocyte Esterase (Negative) Urine RBC (0-5) /hpf Urine WBC (0-5) /hpf Ur Squamous Epith Cells (0-4) /hpf Urine Mucus (None) /hpf 01/23/22 Range/Units 14:34 WBC (3.8-10.6) k/uL RBC (3.80-5.40) m/uL Hgb (11.4-16.0) gm/dL Hct (34.0-46.0) % MCV (80.0-100.0) fL MCH (25.0-35.0) pg MCHC (31.0-37.0) g/dL RDW (11.5-15.5) % Plt Count (150-450) k/uL MPV Neutrophils % % Lymphocytes % % Monocytes % % Eosinophils % % Basophils % % Neutrophils # (1.3-7.7) k/uL Lymphocytes # (1.0-4.8) k/uL Monocytes # (0-1.0) k/uL Eosinophils # (0-0.7) k/uL Basophils # (0-0.2) k/uL Sodium (137-145) mmol/L Potassium (3.5-5.1) mmol/L Chloride (98-107) mmol/L Carbon Dioxide (22-30) mmol/L Anion Gap mmol/L BUN (7-17) mg/dL Creatinine (0.52-1.04) mg/dL Est GFR (CKD-EPI)AfAm (>60 ml/min/1.73 sqM) Est GFR (CKD-EPI)NonAf (>60 ml/min/1.73 sqM) Glucose (74-99) mg/dL Calcium (8.4-10.2) mg/dL Magnesium (1.6-2.3) mg/dL Total Bilirubin (0.2-1.3) mg/dL AST (14-36) U/L ALT (4-34) U/L Alkaline Phosphatase (38-126) U/L Total Protein (6.3-8.2) g/dL Albumin (3.5-5.0) g/dL Amylase (30-110) U/L Lipase (23-300) U/L Urine Color Yellow Urine Appearance Cloudy H (Clear) Urine pH 5.5 (5.0-8.0) Ur Specific [place] 1.025 (1.001-1.035) Urine Protein Trace H (Negative) Urine Glucose (UA) Negative (Negative) Urine Ketones Negative (Negative) Urine Blood Negative (Negative) Urine Nitrite Negative (Negative) Urine Bilirubin 1+ H (Negative) Urine Urobilinogen 2.0 (<2.0) mg/dL Ur Leukocyte Esterase Trace H (Negative) Urine RBC 2 (0-5) /hpf Urine WBC 3 (0-5) /hpf Ur Squamous Epith Cells 3 (0-4) /hpf Urine Mucus Many H (None) /hpf Disposition Clinical Impression: Nausea & vomiting, Chronic liver disease Disposition: HOME SELF-CARE Condition: Stable Instructions (If sedation given, give patient instructions): Acute Nausea and Vomiting (ED) Additional Instructions: Please return to the Emergency Department if symptoms worsen or any other concerns. Trial of Reglan for nausea. May also take [id number] Benadryl. Follow-up with your GI doctor. Prescriptions: Metoclopramide [Reglan] 10 mg PO TID PRN #15 tab PRN Reason: GERD Is patient prescribed a controlled substance at d/c from ED?: No Referrals: Juliana Johnson MD [Primary Care Provider] - 1-2 days Time of Disposition: 15:13
[2022-01-23] MEDS: POTASSIUM CHLORIDE ER 20 MEQ TAB.ER PO STA ×2 (13:22→14:42)
[2022-01-23] MEDS ORDERED: POTASSIUM CHLORIDE 20 MEQ in WATER FOR INJECTION 1 100ML.BAG IVPB ONE (14:20)
[2022-01-23 14:43] VITALS: BP 121/69; PULSE 70
[2022-01-23 15:06] LABS: Appearance,Urine Cloudy (Clear); Bilirubin,Urine 1+ (Negative); Blood,Urine Negative (Negative); Color,Urine Yellow; Glucose,Urine (UA) Negative (Negative); Ketones,Urine Negative (Negative); Leukocyte Esterase,Urine Trace (Negative); Mucus,Urine Many /hpf; Nitrite,Urine Negative (Negative); PH, Urine 5.5 (5.0-8.0); Protein,Urine Trace (Negative); RBC,Urine 2 /hpf (0-5); Specific Gravity,Urine 1.025 (1.001-1.035); Squamous Epithelial Cell,Urine 3 /hpf (0-4); WBC,Urine 3 /hpf (0-5)
== END 2022-01-23 15:46 | disposition home or self-care (01) ==
LOC: EC 10:44
DX: K76.9 Liver disease, unspecified (principal); Z87.891 Personal history of nicotine dependence
CPT/HCPCS: 36415; 80053; 82150; 83690; 83735; 85025; 81001; 99284; 96365; 96375; 96376; 96361; J1200; J2765; J3480; J2405

== ENCOUNTER 2022-02-05 19:52 | Emergency (ER) | payer OTHER ==
[2022-02-05 19:59] VITALS: TEMP 97.3
--- NOTE | 2022-02-05 20:13 | ED ---
General Adult HPI - General Source: patient Mode of arrival: EMS Limitations: no limitations <Jesse Nuno - Last Filed: 02/05/22 21:02> <Jovany Ashby - Last Filed: 02/06/22 03:59> - General Chief complaint: Abdominal Pain Stated complaint: Vomiting Time Seen by Provider: 02/05/22 20:00 - History of Present Illness Initial comments: Patient presents to the ED by ambulance for evaluation. Patient states that she has cirrhosis, as well as gallstones, and she states that she has had nausea/vomiting and right upper quadrant abdominal pain since this morning. Patient denies any recent alcohol use. Patient states that she was given Zofran by EMS, and she states that her nausea has now improved. Patient denies trauma or injury, fever or chills, headache, focal neuro deficit, chest pain or pressure, cough or cold symptoms, dyspnea, palpitations, dizziness, lower abdominal pain, back or flank pain, diarrhea or constipation, bloody or melanotic stool, hematemesis, dysuria/hematuria/urinary frequency/urinary symptoms, or any other symptoms or complaints. (Jesse Nuno) - Related Data Home Medications Medication Instructions Recorded Confirmed Pantoprazole [Protonix] 40 mg PO DAILY 01/23/22 02/05/22 Spironolactone [Aldactone] 25 mg PO DAILY 01/23/22 02/05/22 ursodioL [Ursodiol] 300 mg PO BID 01/23/22 02/05/22 Citalopram Hydrobromide [CeleXA] 20 mg PO DAILY 02/05/22 02/05/22 Metoclopramide [Reglan] 10 mg PO TID PRN 02/05/22 02/05/22 Ondansetron Odt [Zofran Odt] 4 mg PO Q8H PRN 02/05/22 02/05/22 Propranolol [Inderal] 10 mg PO BID 02/05/22 02/05/22 Allergies Allergy/AdvReac Type Severity Reaction Status Date / Time No Known Allergies Allergy Verified 02/05/22 22:04 Review of Systems ROS Other: All systems not noted in ROS Statement are negative. <Jesse Nuno - Last Filed: 02/05/22 21:02> ROS Other: All systems not noted in ROS Statement are negative. <Jovany Ashby - Last Filed: 02/06/22 03:59> ROS Statement: Those systems with pertinent positive or pertinent negative responses have been documented in the HPI. Past Medical History Past Medical History: Liver Disease Additional Past Medical History / Comment(s): some esophageal varices, gallstones History of Any Multi-Drug Resistant Organisms: None Reported Past Surgical History: Tonsillectomy Past Psychological History: Anxiety, Depression Smoking Status: Former smoker Past Alcohol Use History: Daily, Heavy Past Drug Use History: None Reported <Jesse Nuno - Last Filed: 02/05/22 21:02> General Exam Limitations: no limitations General appearance: alert, in no apparent distress Head exam: Present: atraumatic, normocephalic Eye exam: Present: EOMI, other (Mild scleral icterus bilaterally) ENT exam: Present: mucous membranes moist Neck exam: Present: other (Trachea is in midline) Respiratory exam: Present: normal lung sounds bilaterally. Absent: respiratory distress, wheezes, rales, rhonchi, stridor Cardiovascular Exam: Present: regular rate, normal rhythm, normal heart sounds, other (Normal radial pulses bilaterally) GI/Abdominal exam: Present: soft, other (Mild right upper quadrant abdominal tenderness). Absent: distended, guarding, rebound Back exam: Absent: CVA tenderness (R), CVA tenderness (L) Neurological exam: Present: alert, oriented X3. Absent: motor sensory deficit Psychiatric exam: Present: normal affect, normal mood Skin exam: Present: warm, dry, intact, normal color <Jesse Nuno - Last Filed: 02/05/22 21:02> Course <Jesse Nuno - Last Filed: 02/05/22 21:02> Vital Signs 02/05/22 02/06/22 19:57 01:29 Temperature 97.3 F L Pulse Rate 88 74 Respiratory 16 15 Rate Blood Pressure 115/66 127/69 O2 Sat by Pulse 98 99 Oximetry - Reevaluation(s) Reevaluation #1: 02/05/22 21:00 Patient was endorsed to Dr. Ashby (due to shift change) with the patient's labs and gallbladder ultrasound still pending. Dr. Ashby to follow up on the patient's test results and take over care of the patient at this time. (Jesse Nuno) Medical Decision Making - Lab Data Result diagrams: 02/05/22 20:08 02/05/22 20:08 <Jesse Nuno - Last Filed: 02/05/22 21:02> - Lab Data Result diagrams: 02/05/22 20:08 02/05/22 20:08 <Jovany Ashby - Last Filed: 02/06/22 03:59> - Medical Decision Making I receive this patient is a sign out pending the studies. On reevaluation, the patient states that her symptoms have resolved then she is feeling well like she would like to go home. There is no tenderness at my exam. I did discuss symptoms of cholecystitis and reviewed that if any these develop she should return immediately. Discussed appropriate further care and follow-up as well as return parameters. (Jovany Ashby) - Lab Data Lab Results 02/05/22 02/05/22 02/05/22 Range/Units 20:08 20:08 20:08 WBC 3.9 (3.8-10.6) k/uL RBC 3.59 L (3.80-5.40) m/uL Hgb 11.5 (11.4-16.0) gm/dL Hct 34.5 (34.0-46.0) % MCV 96.1 (80.0-100.0) fL MCH 31.9 (25.0-35.0) pg MCHC 33.2 (31.0-37.0) g/dL RDW 16.9 H (11.5-15.5) % Plt Count 113 L (150-450) k/uL MPV 8.3 Neutrophils % 84 % Lymphocytes % 12 % Monocytes % 2 % Eosinophils % 0 % Basophils % 0 % Neutrophils # 3.3 (1.3-7.7) k/uL Lymphocytes # 0.5 L (1.0-4.8) k/uL Monocytes # 0.1 (0-1.0) k/uL Eosinophils # 0.0 (0-0.7) k/uL Basophils # 0.0 (0-0.2) k/uL Hypochromasia Slight Anisocytosis Slight Macrocytosis Slight PT 13.3 H (9.0-12.0) sec INR 1.3 H (<1.2) APTT 29.0 (22.0-30.0) sec Sodium 137 (137-145) mmol/L Potassium 3.2 L (3.5-5.1) mmol/L Chloride 106 (98-107) mmol/L Carbon Dioxide 20 L (22-30) mmol/L Anion Gap 11 mmol/L BUN 5 L (7-17) mg/dL Creatinine 0.44 L (0.52-1.04) mg/dL Est GFR (CKD-EPI)AfAm >90 (>60 ml/min/1.73 sqM) Est GFR (CKD-EPI)NonAf >90 (>60 ml/min/1.73 sqM) Glucose 105 H (74-99) mg/dL Calcium 8.5 (8.4-10.2) mg/dL Total Bilirubin 4.4 H (0.2-1.3) mg/dL AST 45 H (14-36) U/L ALT 29 (4-34) U/L Alkaline Phosphatase 92 (38-126) U/L Total Protein 6.8 (6.3-8.2) g/dL Albumin 3.4 L (3.5-5.0) g/dL Amylase 65 (30-110) U/L Lipase 115 (23-300) U/L Disposition <Jesse Nuno - Last Filed: 02/05/22 21:02> Is patient prescribed a controlled substance at d/c from ED?: No <Jovany Ashby - Last Filed: 02/06/22 03:59> Clinical Impression: Abdominal pain, Nausea & vomiting Disposition: HOME SELF-CARE Condition: Good Instructions (If sedation given, give patient instructions): Abdominal Pain ( ED) Referrals: Isaias Johnson MD [Primary Care Provider] - 1-2 days
[2022-02-05] MEDS ORDERED: MORPHINE SULFATE 4 MG/ML SYRINGE IV STA (20:32)
[2022-02-05] MEDS ORDERED: SODIUM CHLORIDE 0.9% 500 ML 500 ML IV STA (20:32)
[2022-02-05 20:58] LABS: Anisocytosis Slight; Basophils % (A) 0 %; Eosinophils % (A) 0 %; HCT 34.5 % (34.0-46.0); HGB 11.5 gm/dL (11.4-16.0); Hypochromasia Slight; Lymphocytes # (A) 0.5 k/uL (1.0-4.8); Lymphocytes % (A) 12 %; MCH 31.9 pg (25.0-35.0); MCHC 33.2 g/dL (31.0-37.0); MCV 96.1 fL (80.0-100.0); Macrocytosis Slight; Mean Platelet Volume 8.3; Monocytes # (A) 0.1 k/uL (0-1.0); Monocytes % (A) 2 %; Neutrophils # (A) 3.3 k/uL (1.3-7.7); Neutrophils % (A) 84 %; Platelet Count 113 k/uL (150-450); RBC 3.59 m/uL (3.80-5.40); RDW 16.9 % (11.5-15.5); WBC 3.9 k/uL (3.8-10.6)
[2022-02-05 21:00] LABS: ALT 29 U/L (4-34); AST 45 U/L (14-36); African American GFR (CKD) >90 (>60 ml/min/1.73 sqM); Albumin 3.4 g/dL (3.5-5.0); Alkaline Phosphatase 92 U/L (38-126); Amylase 65 U/L (30-110); Anion Gap 11 mmol/L; Blood Urea Nitrogen 5 mg/dL (7-17); Calcium 8.5 mg/dL (8.4-10.2); Carbon Dioxide 20 mmol/L (22-30); Chloride 106 mmol/L (98-107); Glucose 105 mg/dL (74-99); Lipase 115 U/L (23-300); Non-African American GFR(CKD) >90 (>60 ml/min/1.73 sqM); Potassium 3.2 mmol/L (3.5-5.1); Sodium 137 mmol/L (137-145); Total Bilirubin 4.4 mg/dL (0.2-1.3); Total Protein 6.8 g/dL (6.3-8.2)
[2022-02-05 21:06] LABS: INR 1.3 (<1.2); Prothrombin Time 13.3 sec (9.0-12.0)
--- NOTE | 2022-02-06 00:47 | US ---
EXAMINATION TYPE: US gallbladder DATE OF EXAM: 02/06/2022 COMPARISON: NONE CLINICAL HISTORY: Right upper quadrant abdominal pain, vomiting. TECHNIQUE: Multiple sonographic images of the right upper quadrant are obtained. FINDINGS: EXAM MEASUREMENTS: Liver Length: 12.6 cm Gallbladder Wall: 0.5 cm CBD: 0.6 cm Right Kidney: 9.7 x 5.1 x 4.4 cm ELECTRICAL PARTS RECONDITIONER NOTES: Pancreas: Obscured by bowel gas Liver: recanalization of umbilical vein, small amount of ascites Gallbladder: stones, wall thickened Evidence for sonographic Murrell's sign: no CBD: wnl Right Kidney: inferior pole completely obscured by overlying bowel gas, appears wnl as seen IMPRESSION: There are multiple large gallstones. Mild 5 mm gallbladder wall thickening. No dilated ducts.
[2022-02-06 01:29] VITALS: RESP 15
[2022-02-06 04:33] VITALS: BP 128/71; PULSE 68
== END 2022-02-06 04:33 | disposition home or self-care (01) ==
LOC: EC 19:52
DX: R10.11 Right upper quadrant pain (principal); F41.9 Anxiety disorder, unspecified; F32.A Depression, unspecified; Z87.891 Personal history of nicotine dependence; Z79.899 Other long term (current) drug therapy
CPT/HCPCS: 36415; 80053; 82150; 83690; 85025; 85610; 85730; 76705; 99284; 96374; J2270

== ENCOUNTER 2022-06-25 12:09 | Inpatient (IN) | payer OTHER ==
[2022-06-25] MEDS ORDERED: SODIUM CHLORIDE 0.9% 1,000 ML IV STA ×3 (12:54→15:29)
[2022-06-25] MEDS ORDERED: PANTOPRAZOLE 40 MG/10 ML VIAL IVP STA (12:54)
[2022-06-25] MEDS ORDERED: LORazepam 1 MG TAB PO STA (12:56)
[2022-06-25] MEDS ORDERED: MORPHINE SULFATE 4 MG/ML SYRINGE IVP STA (12:56)
[2022-06-25 13:21] LABS: Anisocytosis Slight; Basophils % (A) 1 %; Eosinophils % (A) 0 %; HGB 9.8 gm/dL (11.4-16.0); Lymphocytes # (A) 0.6 k/uL (1.0-4.8); Lymphocytes % (A) 10 %; MCH 27.4 pg (25.0-35.0); MCHC 32.7 g/dL (31.0-37.0); MCV 83.9 fL (80.0-100.0); Mean Platelet Volume 8.3; Monocytes # (A) 0.2 k/uL (0-1.0); Monocytes % (A) 3 %; Neutrophils % (A) 86 %; Platelet Count 183 k/uL (150-450); Poikilocytosis Slight; RBC 3.57 m/uL (3.80-5.40); RDW 17.2 % (11.5-15.5); WBC 5.8 k/uL (3.8-10.6)
[2022-06-25 13:30] LABS: ALT 53 U/L (4-34); Acetaminophen <10.0 ug/mL; African American GFR (CKD) >90 (>60 ml/min/1.73 sqM); Albumin 3.9 g/dL (3.5-5.0); Alcohol 10 mg/dL; Amylase 102 U/L (30-110); Anion Gap 10 mmol/L; Blood Urea Nitrogen 5 mg/dL (7-17); Calcium 7.7 mg/dL (8.4-10.2); Carbon Dioxide 23 mmol/L (22-30); Chloride 106 mmol/L (98-107); Glucose 135 mg/dL (74-99); Lipase 407 U/L (23-300); Non-African American GFR(CKD) >90 (>60 ml/min/1.73 sqM); Salicylate 7.5 mg/dL; Sodium 139 mmol/L (137-145); Total Bilirubin 2.4 mg/dL (0.2-1.3); Total Protein 7.5 g/dL (6.3-8.2)
[2022-06-25 13:33] LABS: INR 1.3 (<1.2); Partial Thromboplastin Time 26.6 sec (22.0-30.0); Prothrombin Time 13.2 sec (9.0-12.0)
[2022-06-25 13:34] LABS: Potassium 3.8 mmol/L (3.5-5.1)
[2022-06-25 13:35] LABS: AST 133 U/L (14-36); Alkaline Phosphatase 112 U/L (38-126)
--- NOTE | 2022-06-25 14:03 | US ---
EXAMINATION TYPE: US gallbladder DATE OF EXAM: 06/25/2022 COMPARISON: NONE CLINICAL HISTORY: pain. pain gallstones. Exam limitations due to body habitus and bowel gas. TECHNIQUE: Multiple sonographic images of the right upper quadrant are obtained. FINDINGS: EXAM MEASUREMENTS: Liver Length: 11.2 cm Gallbladder Wall: .3 cm CBD: .4 cm Right Kidney: 10 x 4.3 x 3.2 cm SUPERVISOR CUSTOMER COMPLAINT SERVICE NOTES: Pancreas: Obscured by bowel gas Liver: Limited increased attenuation. Gallbladder: Multiple large stones seen. Evidence for sonographic Murrell's sign: no CBD: wnl Right Kidney: No hydronephrosis or masses seen IMPRESSION: 1. Cholelithiasis 2. Hepatic steatosis.
[2022-06-25 14:16] LABS: VBG PH 7.44 (7.31-7.41)
--- NOTE | 2022-06-25 14:53 | XR ---
EXAMINATION TYPE: XR chest 1V portable DATE OF EXAM: 06/25/2022 COMPARISON: NONE HISTORY: Nausea and vomiting TECHNIQUE: Single view FINDINGS: Heart and mediastinum are normal. Lungs are clear. Diaphragm is normal. Bony thorax is inta ct. Chest leads. IMPRESSION: Normal chest.
--- NOTE | 2022-06-25 15:07 | ED ---
General Adult HPI - General Chief complaint: Nausea/Vomiting/Diarrhea Stated complaint: Cirrhosis Time Seen by Provider: 06/25/22 12:45 Source: patient, RN notes reviewed, old records reviewed Mode of arrival: ambulatory Limitations: no limitations - History of Present Illness Initial comments: Patient is a 41-year-old female with past medical history of chronic alcohol use presents emergency department complaining of intractable abdominal pain for mu ltiple days, nausea, vomiting. Patient. She also has been drinking isopropyl alcohol. She states she has been drinking an approximate 32 ounce bottle and sipping on it for the last 2-3 days. She had approximately one third of the bottle left over according to when he found today and dumped it out. Denies any other drug use at this time. Denies any other intoxication. Was seen at an outside facility a few days ago and discharged home. States she wants help with her abdominal pain as well as possible rehab. Denies any chest pain or shortness of breath. Denies any history of alcohol withdrawal. Denies any history of delirium tremens. Patient did fall down and hit her head ye sterday. Patient's is concerned and wants her to be evaluated. Patient was in agreement with this. She does have a history of alcoholic liver disease as well as cirrhosis.Poorly describes her right-sided abdominal pain but states it is somewhat achy and sharp and points to her right flank, right upper quadrant. - Related Data Home Medications Medication Instructions Recorded Confirmed Pantoprazole [Protonix] 40 mg PO BID 01/23/22 06/25/22 Spironolactone [Aldactone] 25 mg PO DAILY 01/23/22 06/25/22 ursodioL [Ursodiol] 300 mg PO BID 01/23/22 06/25/22 Citalopram Hydrobromide [CeleXA] 20 mg PO DAILY 02/05/22 06/25/22 Cephalexin [Keflex] 250 mg PO Q6HR 06/25/22 06/25/22 Ibuprofen [Motrin] 600 mg PO Q6HR PRN 06/25/22 06/25/22 Allergies Allergy/AdvReac Type Severity Reaction Status Date / Time No Known Allergies Allergy Verified 06/25/22 13:31 Review of Systems ROS Statement: Those systems with pertinent positive or pertinent negative responses have been documented in the HPI. Review of Systems: CONST: Denies fever EYES: Denies blurry vision ENT: Denies nasal congestion C/V: Denies Chest pain RESP: Denies shortness of breath GI: Endorses right sided abdominal pain. : Denies dysuria SKIN: Denies rash. MSK: Denies joint pain. NEURO: Denies headache ROS Other: All systems not noted in ROS Statement are negative. Past Medical History Past Medical History: Liver Disease Additional Past Medical History / Comment(s): some esophageal varices, gallstones History of Any Multi-Drug Resistant Organisms: None Reported Past Surgical History: Tonsillectomy Past Psychological History: Anxiety, Depression Smoking Status: Current every day smoker Past Alcohol Use History: Daily, Heavy Past Drug Use History: Marijuana General Exam - General Exam Comments Initial Comments: General: Appears in no acute distress. HEAD: Normal with no signs of head trauma. EYES: PERRLA, EOMI, conjunctiva normal, no discharge. Pupils are 3 mm equal bilaterally. ENT: Hearing grossly intact, normal oropharynx. Dry mucous membranes. RESPIRATORY: Clear breath sounds bilaterally. No wheezes, rales, or rhonchi. C/V: Tachycardic with regular rhythm. S1 and S2 auscultated. Peripheral pulses 2+ and intact throughout. ABD: Abdomen is soft, nondistended. Tender to palpation of the right flank, right upper quadrant. EXT: Normal range of motion, no obvious deformity SKIN: No rashes or lesions observed on exposed skin. NEURO: Alert and oriented 4. No focal deficits. Limitations: no limitations Course Vital Signs 06/25/22 12:18 Temperature 98.9 F Pulse Rate 132 H Respiratory 20 Rate Blood Pressure 119/72 O2 Sat by Pulse 100 Oximetry Medical Decision Making - Medical Decision Making Based on the patient's presentation and physical exam, I'm concerned for acute intra-abdominal physiology causing her current symptoms, including gallbladder pathology, renal pathology, chronic liver disease. I did recommend we obtain abdominal laboratory studies as well as tox screen with her isopropyl alcohol intake. Patient and family were in agreement this plan. We will also obtain a CT brain and CT abdomen and pelvis. EKG will be obtained. We will recheck to poison control as well. Vital signs are remarkable for tachycardia, which we will she with IV fluids at this time. Does not appear that she is in alcohol withdrawals at this time. However I will provide her with a dose of Ativan over concern for anxiety as well as IV pain medication with morphine, IV fluids, IV Protonix. There were in agreement this plan. EKG showed no signs of acute ischemia.Chest x-ray revealed no acute cardiopulmonary process. Patient's gallbladder ultrasound and right flank ultrasound was negative for cholecystitis and negative for hydronephrosis. Gallbladder evaluation was normal except for cholelithiasis. Brain CT revealed no acute intracranial process. CT and pelvis revealed liver cirrhosis but no acute intra-abdominal process otherwise. Laboratory studies remarkable for chr onic anemia with a hemoglobin of 9.8. Patient has an elevated osmolality with the osmolar gap of approximately 56 which is enlarged. Patient has a lactic acidosis of 3.3. Patient is chronically elevated bilirubin of 2.4 since improved from prior visits. AST, ALT are mildly elevated as well. Patient's lipase is just mildly elevated to 407. Salicylates level is positive at 7.5. Tylenol level is negative. Serum alcohol level is positive at 10. Patient is positive ketones. There is no anion gap metabolic acidosis present. On reevaluation, patient's pain is improved. Tachycardia is resolving. Medicines otherwise remained hemodynamically stable. We discussed with poison control, and they recommended supportive care as well as repeating the aspirin level at the 3 hour darinel after the initial. This was ordered as a timed order for 1630. No further recommendations other than symptomatic treatment any GI complaints. I discussed this with the patient. Patient and her were in agreement with admission to the hospital. I spoke with the admitting physician, jed Modi. He was in agreement with the above plan. Requested the patient be admitted to stepdown and I was in agreement with this plan. Patient was therefore admitted to stepdown serious condition. I reevaluated the patient multiple times during her stay. Was pt. sent in by a medical professional or institution (, PA, MEDICAL OFFICE ASSISTANT, urgent care, hospital, or skilled nursing...) When possible be specific @ -No Did you speak to anyone other than the patient for history (EMS, parent, family, police, friend...)? What history was obtained from this source @ -Patient's who provided further history including the patient dr inking isopropyl alcohol. Did you review nursing and triage notes (agree or disagree)? Why? @ -I reviewed and agree with nursing and triage notes Were old charts reviewed (outside hosp., previous admission, EMS record, old EKG, old radiological studies, urgent care reports/EKG's, skilled nursing records)? Report findings @ -Yes. I reviewed prior results. Differential Diagnosis (chest pain, altered mental status, abdominal pain women, abdominal pain men, vaginal bleeding, weakness, fever, dyspnea, syncope, headache, dizziness, GI bleed, back pain, seizure, CVA, palpatations, mental health)? @ -Alcohol abuse, nephrolithiasis, cholelithiasis, pancreatitis, isopropyl alcohol intoxication, substance abuse. This list is not all inclusive. EKG interpreted by me (3pts min.). @ -As above X-rays interpreted by me (1pt min.). @ -X-ray revealed no acute cardiopulmonary process. CT interpreted by me (1pt min.). @ -CT abdomen and pelvis with contrast revealed cholelithiasis, findings consistent with hepatic cirrhosis and no other obvious findings. U/S interpreted by me (1pt. min.). @ -Yes, no evidence of cholecystitis. Cholelithiasis present. No evidence of hydronephrosis or nephrolithiasis of the right flank. What testing was considered but not performed or refused? (CT, X-rays, U/S, labs)? Why? @ -None What meds were considered but not given or refused? Why? @ -None Did you discuss the management of the patient with other professionals (professionals i.e. , PA, MEDICAL OFFICE ASSISTANT, lab, RT, psych nurse, professor of social work, cleaning professional, teacher, consumer safety officer, renal case manager)? Give summary @ -Yes. Poison control recommended supportive care, repeating aspirin level. I see discussed revealing physician Dr. Modi who accepted the patient. Was smoking cessation discussed for >3mins.? @ -No Was critical care preformed (if so, how long)? @ -Yes. 35 minutes. See above. Were there social determinants of health that impacted care today? How? (Homelessness, low income, unemployed, alcoholism, drug addiction, transportation, low edu. Level, literacy, decrease access to med. care, shelter, rehab)? @ -Alcoholism Was there de-escalation of care discussed even if they declined (Discuss DNR or withdrawal of care, Hospice)? DNR status @ -No What co-morbidities impacted this encounter? (DM, HTN, Smoking, COPD, CAD, Cancer, CVA, ARF, Chemo, Hep., AIDS, mental health diagnosis, sleep apnea, morbid obesity)? @ -Alcohol abuse Was patient admitted / discharged? Hospital course, mention meds given and route, prescriptions, significant lab abnormalities, going to OR and other pertinent info. @ -Admitted to stepdown. See above for emergency department course. Undiagnosed new problem with uncertain prognosis? @ -No Drug Therapy requiring intensive monitoring for toxicity (Heparin, Nitro, Insulin, Cardizem)? @ -No Were any procedures done? @ -No Diagnosis/symptom? @ -Nausea and vomiting Acute, or Chronic, or Acute on Chronic? @ -Acute Uncomplicated (without systemic symptoms) or Complicated (systemic symptoms)? @ -Complicated Side effects of treatment? @ -No Exacerbation, Progression, or Severe Exacerbation? @ -No Poses a threat to life or bodily function? How? (Chest pain, [place], [place], pneumonia, PE, COPD, DKA, ARF, appy, cholecystitis, CVA, Diverticulitis, Homicidal, S uicidal, threat to staff... and all critical care pts) @ -Yes Diagnosis/symptom? @ -Isopropyl alcohol intoxication Acute, or Chronic, or Acute on Chronic? @ -Acute Uncomplicated (without systemic symptoms) or Complicated (systemic symptoms)? @ -Complicated Side effects of treatment? @ -none Exacerbation, Progression, or Severe Exacerbation] @ -no Poses a threat to life or bodily function? @ -Yes, if untreated can result in significant morbidity and mortality. Diagnosis/symptom? @ -Osmolar gap without an anion gap metabolic acidosis Acute, or Chronic, or Acute on Chronic? @ -Acute Uncomplicated (without systemic symptoms) or Complicated (systemic symptoms)? @ -Complicated Side effects of treatment? @ -none Exacerbation, Progression, or Severe Exacerbation] @ -no Poses a threat to life or bodily function? @ -Yes Diagnosis/symptom? @ -Dehydration and lactic acidosis Acute, or Chronic, or Acute on Chronic? @ -Acute Uncomplicated (without systemic symptoms) or Complicated (systemic symptoms)? @ -Complicated Side effects of treatment? @ -none Exacerbation, Progression, or Severe Exacerbation] @ -no Poses a threat to life or bodily function? @ -Yes Diagnosis/symptom? @ -Polysubstance abuse/alcohol abuse Acute, or Chronic, or Acute on Chronic? @ -Acute on chronic Uncomplicated (without systemic symptoms) or Complicated (systemic symptoms)? @ -Complicated Side effects of treatment? @ -none Exacerbation, Progression, or Severe Exacerbation] @ -no Poses a threat to life or bodily function? @ -Yes Diagnosis/symptom? @ -Normocytic anemia Acute, or Chronic, or Acute on Chronic? @ -Chronic Uncomplicated (without systemic symptoms) or Complicated (systemic symptoms)? @ -Uncomplicated Side effects of treatment? @ -none Exacerbation, Progression, or Severe Exacerbation] @ -no Poses a threat to life or bodily function? @ -no Diagnosis/symptom? @ -Liver cirrhosis Acute, or Chronic, or Acute on Chronic? @ -Chronic Uncomplicated (without systemic symptoms) or Complicated (systemic symptoms)? @ -Complicated Side effects of treatment? @ -none Exacerbation, Progression, or Severe Exacerbation] @ -no Poses a threat to life or bodily function? @ -Can ultimately result in significant morbidity mortality - Lab Data Result diagrams: 06/25/22 13:11 06/25/22 13:11 Lab Results 06/25/22 06/25/22 06/25/22 Range/Units 13:11 13:11 13:11 WBC 5.8 (3.8-10.6) k/uL RBC 3.57 L (3.80-5.40) m/uL Hgb 9.8 L (11.4-16.0) gm/dL Hct 30.0 L (34.0-46.0) % MCV 83.9 (80.0-100.0) fL MCH 27.4 (25.0-35.0) pg MCHC 32.7 (31.0-37.0) g/dL RDW 17.2 H (11.5-15.5) % Plt Count 183 (150-450) k/uL MPV 8.3 Neutrophils % 86 % Lymphocytes % 10 % Monocytes % 3 % Eosinophils % 0 % Basophils % 1 % Neutrophils # 5.0 (1.3-7.7) k/uL Lymphocytes # 0.6 L (1.0-4.8) k/uL Monocytes # 0.2 (0-1.0) k/uL Eosinophils # 0.0 (0-0.7) k/uL Basophils # 0.0 (0-0.2) k/uL Poikilocytosis Slight Anisocytosis Slight PT 13.2 H (9.0-12.0) sec INR 1.3 H (<1.2) APTT 26.6 (22.0-30.0) sec VBG pH (7.31-7.41) VBG pCO2 (37-51) mmHg VBG HCO3 (24-28) mmol/L Sodium 139 (137-145) mmol/L Potassium 3.8 (3.5-5.1) mmol/L Chloride 106 (98-107) mmol/L Carbon Dioxide 23 (22-30) mmol/L Anion Gap 10 mmol/L BUN 5 L (7-17) mg/dL Creatinine 0.55 (0.52-1.04) mg/dL Est GFR (CKD-EPI)AfAm >90 (>60 ml/min/1.73 sqM) Est GFR (CKD-EPI)NonAf >90 (>60 ml/min/1.73 sqM) Glucose 135 H (74-99) mg/dL Osmolality 346 H* (280-301) mosm/kg Lactic Ac Sepsis Rflx Plasma Lactic Acid Vinay (0.7-2.0) mmol/L Calcium 7.7 L (8.4-10.2) mg/dL Total Bilirubin 2.4 H (0.2-1.3) mg/dL AST 133 H (14-36) U/L ALT 53 H (4-34) U/L Alkaline Phosphatase 112 (38-126) U/L Total Protein 7.5 (6.3-8.2) g/dL Albumin 3.9 (3.5-5.0) g/dL Amylase 102 (30-110) U/L Lipase 407 H (23-300) U/L Salicylates 7.5 mg/dL Acetaminophen <10.0 ug/mL Serum Alcohol 10 mg/dL Acetone, Qual (Negative) 06/25/22 06/25/22 06/25/22 Range/Units 13:11 13:37 14:02 WBC (3.8-10.6) k/uL RBC (3.80-5.40) m/uL Hgb (11.4-16.0) gm/dL Hct (34.0-46.0) % MCV (80.0-100.0) fL MCH (25.0-35.0) pg MCHC (31.0-37.0) g/dL RDW (11.5-15.5) % Plt Count (150-450) k/uL MPV Neutrophils % % Lymphocytes % % Monocytes % % Eosinophils % % Basophils % % Neutrophils # (1.3-7.7) k/uL Lymphocytes # (1.0-4.8) k/uL Monocytes # (0-1.0) k/uL Eosinophils # (0-0.7) k/uL Basophils # (0-0.2) k/uL Poikilocytosis Anisocytosis PT (9.0-12.0) sec INR (<1.2) APTT (22.0-30.0) sec VBG pH (7.31-7.41) VBG pCO2 (37-51) mmHg VBG HCO3 (24-28) mmol/L Sodium (137-145) mmol/L Potassium (3.5-5.1) mmol/L Chloride (98-107) mmol/L Carbon Dioxide (22-30) mmol/L Anion Gap mmol/L BUN (7-17) mg/dL Creatinine (0.52-1.04) mg/dL Est GFR (CKD-EPI)AfAm (>60 ml/min/1.73 sqM) Est GFR (CKD-EPI)NonAf (>60 ml/min/1.73 sqM) Glucose (74-99) mg/dL Osmolality (280-301) mosm/kg Lactic Ac Sepsis Rflx Y Plasma Lactic Acid Vinay 3.3 H* (0.7-2.0) mmol/L Calcium (8.4-10.2) mg/dL Total Bilirubin (0.2-1.3) mg/dL AST (14-36) U/L ALT (4-34) U/L Alkaline Phosphatase (38-126) U/L Total Protein (6.3-8.2) g/dL Albumin (3.5-5.0) g/dL Amylase (30-110) U/L Lipase (23-300) U/L Salicylates mg/dL Acetaminophen ug/mL Serum Alcohol mg/dL Acetone, Qual Positive (Negative) 06/25/22 Range/Units 14:02 WBC (3.8-10.6) k/uL RBC (3.80-5.40) m/uL Hgb (11.4-16.0) gm/dL Hct (34.0-46.0) % MCV (80.0-100.0) fL MCH (25.0-35.0) pg MCHC (31.0-37.0) g/dL RDW (11.5-15.5) % Plt Count (150-450) k/uL MPV Neutrophils % % Lymphocytes % % Monocytes % % Eosinophils % % Basophils % % Neutrophils # (1.3-7.7) k/uL Lymphocytes # (1.0-4.8) k/uL Monocytes # (0-1.0) k/uL Eosinophils # (0-0.7) k/uL Basophils # (0-0.2) k/uL Poikilocytosis Anisocytosis PT (9.0-12.0) sec INR (<1.2) APTT (22.0-30.0) sec VBG pH 7.44 H (7.31-7.41) VBG pCO2 34 L (37-51) mmHg VBG HCO3 22 L (24-28) mmol/L Sodium (137-145) mmol/L Potassium (3.5-5.1) mmol/L Chloride (98-107) mmol/L Carbon Dioxide (22-30) mmol/L Anion Gap mmol/L BUN (7-17) mg/dL Creatinine (0.52-1.04) mg/dL Est GFR (CKD-EPI)AfAm (>60 ml/min/1.73 sqM) Est GFR (CKD-EPI)NonAf (>60 ml/min/1.73 sqM) Glucose (74-99) mg/dL Osmolality (280-301) mosm/kg Lactic Ac Sepsis Rflx Plasma Lactic Acid Vinay (0.7-2.0) mmol/L Calcium (8.4-10.2) mg/dL Total Bilirubin (0.2-1.3) mg/dL AST (14-36) U/L ALT (4-34) U/L Alkaline Phosphatase (38-126) U/L Total Protein (6.3-8.2) g/dL Albumin (3.5-5.0) g/dL Amylase (30-110) U/L Lipase (23-300) U/L Salicylates mg/dL Acetaminophen ug/mL Serum Alcohol mg/dL Acetone, Qual (Negative) - EKG Data -: EKG Interpreted by Me EKG Comments: 12-lead Electrocardiogram Interpretation Note EKG was reviewed and interpreted by myself. 12-lead ECG performed at 1413 is interpreted by me as revealing sinus tachycardia at a rate of 121 beats per minute. [place] is normal. CT interval is 129 ms, QRS duration is 100 ms, QTc is 435 ms.. There were no ST or T wave abnormalities to suggest myocardial ischemia or injury. R wave progression across the precordium was satisfactory. By my interpretation this EKG is non-diagnostic for acute ischemia. No prior EKG for comparison. Critical Care Time Critical Care Time: Yes Total Critical Care Time: 35 Critical Care Time: Upon my evaluation, this patient had a high probability of imminent or life-threatening deterioration due to isopropyl alcohol intoxication, nausea and vomiting, dehydration, osmolar gap, which required my direct attention, intervention, and personal management. I have personally provided 35 minutes of critical care time exclusive of time spent on separately billable procedures. Time includes review of laboratory data, radiology results, discussion with consultants, and monitoring for potential decompensation. Interventions were performed as documented in my note. Disposition Clinical Impression: Cirrhosis, High serum osmolar gap, Isopropyl alcohol poisoning, Dehydration, History of alcohol abuse, Lactic acidosis, Normocytic anemia Disposition: ADMITTED IP TO THIS HOSP Condition: Serious Time of Disposition: 15:25
--- NOTE | 2022-06-25 15:09 | CT ---
EXAMINATION TYPE: CT brain wo con DATE OF EXAM: 06/25/2022 COMPARISON: Trauma. Pain HISTORY: minor head injury CT DLP: 1039.4 mGycm Automated exposure control for dose reduction was used. Images of the brain obtained with no contrast. Ventricles have normal size. There is no mass effect or midline shift. No sign of intracranial hemorr jarrell. Calvarium is intact and there is normal aeration of the mastoid sinuses. IMPRESSION: Negative unenhanced head CT scan
--- NOTE | 2022-06-25 15:18 | CT ---
EXAMINATION TYPE: CT abdomen pelvis w con DATE OF EXAM: 06/25/2022 COMPARISON: None HISTORY: pain CT DLP: 1031 mGycm Automated exposure control for dose reduction was used. CONTRAST: Performed with IV Contrast, patient injected with 100 mL of Isovue 300. Images obtained from the diaphragm to the floor the pelvis with IV contrast. There is small right pleural effusion. Heart size is fairly normal. There is hiatal hernia. Spleen is intact. No pancreatic mass. There are large calcified gallstones. The bile ducts are not dilated. Th e stomach is intact. There is no adrenal mass. Kidneys show satisfactory contrast opacification. No hydronephrosis. There is heterogeneity in the liver without a discrete mass. Liver is relatively small and measures 13 cm. There is mild abdominal ascites fluid. No retroperitoneal adenopathy. The bladder distends smoothly. No inguinal hernia. No pelvic mass. Uterus is anteverted The lumbar vertebrae have normal alignment. No compression fracture. The bony pelvis is intact. The h ip joints are intact. There is no evidence of free air. No evidence of a bowel obstruction. There is mild small bowel wall thickening. No evidence of intestinal mass. IMPRESSION: Heterogeneity in the liver which is relatively small and consistent with cirrhosis. Cholelithiasis. Mild ascites. Mild bowel wall thickening that could be some nonspecific enteritis. Small right pleura l effusion.
[2022-06-25] MEDS ORDERED: NALOXONE 0.4 MG/ML 1 ML VIAL IV PRN (15:29)
[2022-06-25] MEDS ORDERED: ONDANSETRON 4 MG/2 ML VIAL IVP PRN (15:35)
[2022-06-25] MEDS: HEPARIN SODIUM,PORCINE/PF 5,000 UNIT/0.5 ML SYRINGE SQ SCH ×2 (16:56→22:39)
[2022-06-25 18:33] LABS: ALT 53 U/L (4-34); AST 117 U/L (14-36)
[2022-06-25] MEDS: MORPHINE SULFATE 4 MG/ML SYRINGE IVP PRN (20:32)
[2022-06-25] MEDS: PANTOPRAZOLE 40 MG/10 ML VIAL IVP SCH (20:33)
[2022-06-25] MEDS ORDERED: LORazepam 2 MG/ML INJ IV PRN ×2 (21:49)
[2022-06-25] MEDS ORDERED: THIAMINE 100 MG/ML 2 ML VIAL IM STA (21:49)
[2022-06-26] MEDS: LORazepam 2 MG/ML INJ IV PRN ×5 (01:00→20:57)
[2022-06-26 06:37] LABS: Anisocytosis Slight; Basophils % (A) 1 %; Eosinophils % (A) 1 %; HCT 24.6 % (34.0-46.0); Lymphocytes # (A) 1.3 k/uL (1.0-4.8); Lymphocytes % (A) 28 %; MCH 27.7 pg (25.0-35.0); MCHC 32.9 g/dL (31.0-37.0); Mean Platelet Volume 10.2; Monocytes # (A) 0.2 k/uL (0-1.0); Monocytes % (A) 4 %; Neutrophils # (A) 3.1 k/uL (1.3-7.7); Neutrophils % (A) 66 %; Platelet Count 111 k/uL (150-450); Poikilocytosis Slight; RBC 2.93 m/uL (3.80-5.40); WBC 4.7 k/uL (3.8-10.6)
[2022-06-26 06:58] LABS: ALT 42 U/L (4-34); AST 95 U/L (14-36); African American GFR (CKD) >90 (>60 ml/min/1.73 sqM); Albumin 2.8 g/dL (3.5-5.0); Alkaline Phosphatase 84 U/L (38-126); Anion Gap 4 mmol/L; Blood Urea Nitrogen 4 mg/dL (7-17); Carbon Dioxide 25 mmol/L (22-30); Chloride 110 mmol/L (98-107); Glucose 111 mg/dL (74-99); Non-African American GFR(CKD) >90 (>60 ml/min/1.73 sqM); Potassium 3.2 mmol/L (3.5-5.1); Sodium 139 mmol/L (137-145); Total Bilirubin 1.7 mg/dL (0.2-1.3); Total Protein 5.7 g/dL (6.3-8.2)
[2022-06-26 06:59] LABS: HGB 8.1 gm/dL (11.4-16.0)
[2022-06-26 07:02] LABS: Calcium 6.4 mg/dL (8.4-10.2)
[2022-06-26] MEDS ORDERED: CALCIUM GLUCONATE IN NACL 1 GM in SALINE 1 100ML.BAG IVPB ONE (07:20)
[2022-06-26] MEDS ORDERED: Potassium Replacement Protocol 1 EACH MISC MISCELLANE PRN (07:20)
[2022-06-26] MEDS: SODIUM CHLORIDE 0.9% 1,000 ML IV SCH (08:28)
[2022-06-26] MEDS: HEPARIN SODIUM,PORCINE/PF 5,000 UNIT/0.5 ML SYRINGE SQ SCH ×3 (08:28→22:58)
[2022-06-26] MEDS: SPIRONOLACTONE 25 MG TAB PO SCH (08:29)
[2022-06-26] MEDS: THIAMINE 100 MG TAB PO SCH (08:29)
[2022-06-26] MEDS: FOLIC ACID 1 MG TAB PO SCH (08:29)
[2022-06-26] MEDS: PANTOPRAZOLE 40 MG/10 ML VIAL IVP SCH ×2 (08:29→20:57)
[2022-06-26] MEDS: MULTIVITAMINS, THERA 1 EACH TAB PO SCH (08:29)
[2022-06-26] MEDS: CITALOPRAM HYDROBROMIDE 20 MG TAB PO SCH (08:29)
[2022-06-26] MEDS: POTASSIUM CHLORIDE 10 MEQ in WATER FOR INJECTION 1 100ML.BAG IVPB SCH ×4 (09:48→13:11)
[2022-06-26] MEDS: MORPHINE SULFATE 4 MG/ML SYRINGE IVP PRN ×2 (12:31→18:36)
[2022-06-26 12:37] LABS: Appearance,Urine Clear (Clear); Bilirubin,Urine Negative (Negative); Blood,Urine Negative (Negative); Color,Urine Yellow; Glucose,Urine (UA) Negative (Negative); Ketones,Urine 2+ (Negative); Leukocyte Esterase,Urine Negative (Negative); Mucus,Urine Rare /hpf; Nitrite,Urine Negative (Negative); PH, Urine 5.5 (5.0-8.0); Protein,Urine 1+ (Negative); RBC,Urine 1 /hpf (0-5); Specific Gravity,Urine 1.033 (1.001-1.035); Squamous Epithelial Cell,Urine 2 /hpf (0-4); Urobilinogen,Urine <2.0 mg/dL (<2.0); WBC,Urine 2 /hpf (0-5)
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
--- NOTE | 2022-06-26 14:33 | P.HPIM ---
History of Present Illness H&P Date: 06/26/22 History of present illness: Patient is a 41-year-old female with past medical history significant for alcohol abuse, depression presented to the ER complaining of intractable abdominal pain for multiple days, nausea and patient was seen in the hospital. Patient was seen in the hospital in [facility] for alcohol detox and was later discharged. However since her discharge she has been staying with her father's place and apparently She has been drinking isopropyl alcohol. She states she has been drinking an approximate 32 ounce bottle and sipping on it for the last 2-3 days. She had approximately one third of the bottle left over according to when then the bottle was discovered. Patient was brought to the ER. Patient had initial workup done in the ER, Chest x-ray revealed no acute cardiopulmonary process. Patient's gallbladder ultrasound and right flank ultrasound was negative for cholecystitis and negative for hydronephrosis. Brain CT revealed no acute intracranial process. CT and pelvis revealed liver cirrhosis but no acute intra-abdominal process otherwise. Laboratory studies remarkable for chronic anemia with a hemoglobin of 9.8. Patient has an elevated osmolality with the osmolar gap of approximately 56 which is enlarged. Patient has a lactic acidosis of 3.3. AST, ALT are mildly elevated as well. Patient's lipase is just mildly elevated to 407. Salicylates level is positive at 7.5. Tylenol level is negative. Serum alcohol level is positive at 10. ER discussed with poison control, and they recommended supportive care as well as repeating the aspirin level at the 3 hour darinel after the initial. She'll be admitted for further evaluation and treatment Review of systems CARDIOVASCULAR: No chest pain, orthopnea, PND, no palpitations, no syncope. PULMONARY: No shortness of breath, no cough, no hemoptysis. GASTROINTESTINAL: No diarrhea, no nausea, no vomiting, no abdominal pain. NEUROLOGICAL: No headaches, no weakness, no numbness. HEMATOLOGICAL: Denies any bleeding or petechiae. GENITOURINARY: Denies any burning micturition, frequency, or urgency. MUSCULOSKELETAL/RHEUMATOLOGICAL: Denies any joint pain, swelling, or any muscle pain. ENDOCRINE: Denies any polyuria or polydipsia. The rest of the 14-point review of systems is negative. PHYSICAL EXAMINATION: GENERAL: The patient is alert and oriented x3, lethargic, not in any acute distress. Well developed, well nourished. HEENT: Pupils are round and equally reacting to light. EOMI. No scleral icterus. No conjunctival pallor. Normocephalic, atraumatic. No pharyngeal erythema. No thyromegaly. CARDIOVASCULAR: S1 and S2 present. No murmurs, rubs, or gallops. PULMONARY: Chest is clear to auscultation, no wheezing or crackles. ABDOMEN: Soft, nontender, nondistended, normoactive bowel sounds. No palpable organomegaly. MUSCULOSKELETAL: No joint swelling or deformity. EXTREMITIES: No cyanosis, clubbing, or pedal edema. NEUROLOGICAL: Gross neurological examination did not reveal any focal deficits. SKIN: No rashes. Assessment and plan Isopropyl alcohol intake Elevated osmolar gap Lactic acidosis Alcohol Use Disorder, Severe Major Depressive Disorder, recurrent, moderate Elevated LFTs Plan; Monitor vital signs Monitor CMP monitor electrolytes. Continue CIWA protocol Poison control on board Continue IV fluids Continue antiemetics Consults psychiatry Past Medical History Past Medical History: Liver Disease Additional Past Medical History / Comment(s): some esophageal varices, gallstones kidney stones History of Any Multi-Drug Resistant Organisms: None Reported Past Surgical History: Tonsillectomy Past Anesthesia/Blood Transfusion Reactions: No Reported Reaction Past Psychological History: Anxiety, Depression Smoking Status: Current every day smoker Past Alcohol Use History: Daily, Heavy Past Drug Use History: Marijuana Medications and Allergies Home Medications Medication Instructions Recorded Confirmed Type Pantoprazole [Protonix] 40 mg PO BID 01/23/22 06/25/22 History Spironolactone [Aldactone] 25 mg PO DAILY 01/23/22 06/25/22 History ursodioL [Ursodiol] 300 mg PO BID 01/23/22 06/25/22 History Citalopram Hydrobromide [CeleXA] 20 mg PO DAILY 02/05/22 06/25/22 History Cephalexin [Keflex] 250 mg PO Q6HR 06/25/22 06/25/22 History Ibuprofen [Motrin] 600 mg PO Q6HR PRN 06/25/22 06/25/22 History Allergies Allergy/AdvReac Type Severity Reaction Status Date / Time No Known Allergies Allergy Verified 06/25/22 13:31 Physical Exam Vitals: Vital Signs Temp Pulse Pulse Resp BP BP Pulse Ox 06/26/22 11:56 98.9 F 110 H 18 97/53 92 L 06/26/22 08:00 99.2 F 125 H 16 90/47 96 06/26/22 04:00 98 F 123 H 18 94/45 94 L 06/26/22 02:00 123 H 18 06/25/22 23:23 97.6 F 133 H 18 112/55 98 06/25/22 20:00 97.2 F L 126 H 19 115/59 92 L 06/25/22 17:38 110 H 16 97/51 93 L 06/25/22 17:10 97.6 F 118 H 16 108/65 97 06/25/22 17:00 114 H 98/53 98 06/25/22 16:00 115 H 92/63 96 06/25/22 15:00 106 H 96 Intake and Output 06/25/22 06/26/22 06/26/22 22:59 06:59 14:59 Intake Total 520 240 Output Total 0 Balance 520 240 Intake: Intake, IV Titration 520 Amount Sodium Chloride 0.9% 1, 520 000 ml @ 130 mls/hr IV . Q7H42M [facility] Rx#:[id number] Oral 240 Output: Urine 0 Other: Voiding Method Bedpan Bedpan # Voids 2 1 Weight 70.307 kg Results CBC & Chem 7: 06/26/22 06:16 06/26/22 06:16 Labs: Abnormal Lab Results - Last 24 Hours (Table) 06/25/22 06/25/22 06/26/22 Range/Units 15:53 17:07 06:16 RBC 2.93 L (3.80-5.40) m/uL Hgb 8.1 L D (11.4-16.0) gm/dL Hct 24.6 L (34.0-46.0) % RDW 17.0 H (11.5-15.5) % Plt Count 111 L (150-450) k/uL Potassium (3.5-5.1) mmol/L Chloride (98-107) mmol/L BUN (7-17) mg/dL Glucose (74-99) mg/dL Plasma Lactic Acid Vinay 2.1 H* (0.7-2.0) mmol/L Calcium (8.4-10.2) mg/dL Total Bilirubin (0.2-1.3) mg/dL AST 117 H (14-36) U/L ALT 53 H (4-34) U/L Total Protein (6.3-8.2) g/dL Albumin (3.5-5.0) g/dL Urine Protein (Negative) Urine Ketones (Negative) Urine Mucus (None) /hpf 06/26/22 06/26/22 Range/Units 06:16 12:07 RBC (3.80-5.40) m/uL Hgb (11.4-16.0) gm/dL Hct (34.0-46.0) % RDW (11.5-15.5) % Plt Count (150-450) k/uL Potassium 3.2 L (3.5-5.1) mmol/L Chloride 110 H (98-107) mmol/L BUN 4 L (7-17) mg/dL Glucose 111 H (74-99) mg/dL Plasma Lactic Acid Vinay (0.7-2.0) mmol/L Calcium 6.4 L* (8.4-10.2) mg/dL Total Bilirubin 1.7 H (0.2-1.3) mg/dL AST 95 H (14-36) U/L ALT 42 H (4-34) U/L Total Protein 5.7 L (6.3-8.2) g/dL Albumin 2.8 L (3.5-5.0) g/dL Urine Protein 1+ H (Negative) Urine Ketones 2+ H (Negative) Urine Mucus Rare H (None) /hpf Thrombosis Risk Factor Assmnt - Choose All That Apply Any of the Below Risk Factors Present?: No
[2022-06-27] MEDS: LORazepam 2 MG/ML INJ IV PRN (00:57)
[2022-06-27] MEDS: SODIUM CHLORIDE 0.9% 1,000 ML IV SCH ×3 (04:55→14:05)
[2022-06-27 09:49] LABS: ALT 40 U/L (4-34); AST 71 U/L (14-36); African American GFR (CKD) >90 (>60 ml/min/1.73 sqM); Albumin 2.9 g/dL (3.5-5.0); Alkaline Phosphatase 87 U/L (38-126); Anion Gap 2 mmol/L; Blood Urea Nitrogen 5 mg/dL (7-17); Carbon Dioxide 26 mmol/L (22-30); Chloride 108 mmol/L (98-107); Glucose 95 mg/dL (74-99); Non-African American GFR(CKD) >90 (>60 ml/min/1.73 sqM); Potassium 3.4 mmol/L (3.5-5.1); Sodium 136 mmol/L (137-145); Total Bilirubin 1.9 mg/dL (0.2-1.3)
[2022-06-27 09:52] LABS: Anisocytosis Slight; HCT 24.2 % (34.0-46.0); Hypochromasia Slight; MCH 27.9 pg (25.0-35.0); MCHC 32.9 g/dL (31.0-37.0); MCV 84.7 fL (80.0-100.0); Mean Platelet Volume 9.5; Platelet Count 107 k/uL (150-450); Poikilocytosis Slight; RBC 2.86 m/uL (3.80-5.40); RDW 16.7 % (11.5-15.5); WBC 2.9 k/uL (3.8-10.6)
[2022-06-27] MEDS: PANTOPRAZOLE 40 MG/10 ML VIAL IVP SCH ×2 (10:38→21:18)
[2022-06-27] MEDS: HEPARIN SODIUM,PORCINE/PF 5,000 UNIT/0.5 ML SYRINGE SQ SCH ×2 (10:38→15:48)
[2022-06-27] MEDS: THIAMINE 100 MG TAB PO SCH (10:39)
[2022-06-27] MEDS: CITALOPRAM HYDROBROMIDE 20 MG TAB PO SCH (10:39)
[2022-06-27] MEDS: MULTIVITAMINS, THERA 1 EACH TAB PO SCH (10:39)
[2022-06-27] MEDS: ACAMPROSATE CALCIUM 333 MG TABLET.DR PO SCH ×3 (10:39→21:17)
[2022-06-27] MEDS: SPIRONOLACTONE 25 MG TAB PO SCH (10:39)
[2022-06-27] MEDS: FOLIC ACID 1 MG TAB PO SCH (10:39)
--- NOTE | 2022-06-27 13:12 | P.PN ---
Subjective Progress Note Date: 06/27/22 Patient is a 41-year-old female with past medical history significant for alcohol abuse, depression presented to the ER complaining of intractable abdominal pain for multiple days, nausea and patient was seen in the hospital. Patient was seen in the hospital in [facility] for alcohol detox and was later discharged. However since her discharge she has been staying with her father's place and apparently She has been drinking isopropyl alcohol. She states she has been drinking an approximate 32 ounce bottle and sipping on it for the last 2-3 days. She had approximately one third of the bottle left over according to when then the bottle was discovered. Patient was brought to the ER. Patient had initial workup done in the ER, Chest x-ray revealed no acute cardiopulmonary process. Patient's gallbladder ultrasound and right flank ultrasound was negative for cholecystitis and negative for hydronephrosis. Brain CT revealed no acute intracranial process. CT and pelvis revealed liver cirrhosis but no acute intra-abdominal process otherwise. Laboratory studies remarkable for chronic anemia with a hemoglobin of 9.8. Patient has an elevated osmolality with the osmolar gap of approximately 56 which is enlarged. Patient has a lactic acidosis of 3.3. AST, ALT are mildly elevated as well. Patient's lipase is just mildly elevated to 407. Salicylates level is positive at 7.5. Tylenol level is negative. Serum alcohol level is positive at 10. ER discussed with poison control, and they recommended supportive care as well as repeating the aspirin level at the 3 hour darinel after the initial. She'll be admitted for further evaluation and treatment 06/27. Patient seen and examined. Patient much more awake compared to yesterday, answering questions appropriately. Denies any nausea or vomiting. Blood pressure 118/65, pulse rate of 90, respiration of 16 REVIEW OF SYSTEMS: CONSTITUTIONAL: No fever, no malaise,. CARDIOVASCULAR: No chest pain, no palpitations, no syncope. PULMONARY: No shortness of breath, no cough, GASTROINTESTINAL: No diarrhea, no nausea, no vomiting, no abdominal pain. NEUROLOGICAL: No headaches, no weakness, PHYSICAL EXAMINATION: GENERAL: The patient is alert and oriented x3, not in any acute distress. Well developed, well nourished. HEENT: Pupils are round and equally reacting to light. EOMI. No scleral icterus. No conjunctival pallor. Normocephalic, atraumatic. No pharyngeal erythema. No thyromegaly. CARDIOVASCULAR: S1 and S2 present. No murmurs, rubs, or gallops. PULMONARY: Chest is clear to auscultation, no wheezing or crackles. ABDOMEN: Soft, nontender, nondistended, normoactive bowel sounds. No palpable organomegaly. MUSCULOSKELETAL: No joint swelling or deformity. EXTREMITIES: No cyanosis, clubbing, or pedal edema. NEUROLOGICAL: Gross neurological examination did not reveal any focal deficits. SKIN: No rashes. Assessment and plan Isopropyl alcohol intake Elevated osmolar gap Lactic acidosis Alcohol Use Disorder, Severe Major Depressive Disorder, recurrent, moderate Elevated LFTs Plan; Monitor vital signs Monitor CMP monitor electrolytes. Continue CIWA protocol Poison control on board Continue IV fluids Continue antiemetics Potassium replacement ordered Psych recommended the following Continue Campral 333 mg by mouth three times daily for alcohol cessation Continue citalopram 20 mg daily for depression/anxiety Objective - Vital Signs Vital signs: Vital Signs Temp 98.2 F 06/27/22 12:21 Pulse 90 06/27/22 12:21 Resp 16 06/27/22 12:21 BP 118/65 06/27/22 12:21 Pulse Ox 93 L 06/27/22 12:21 FiO2 Intake & Output 06/26/22 06/27/22 06/27/22 18:59 06:59 18:59 Intake Total 240 750 Output Total 0 Balance 240 750 Intake: Intake, IV Titration 750 Amount Sodium Chloride 0.9% 1, 750 000 ml @ 75 mls/hr IV . [id number] [facility] Rx#:[id number] Oral 240 Output: Urine 0 Other: Voiding Method Bedpan Bedpan # Voids 1 1 - Labs CBC & Chem 7: 06/27/22 08:40 06/27/22 08:40 Labs: Abnormal Lab Results - Last 24 Hours (Table) 06/26/22 06/27/22 06/27/22 Range/Units 12:07 08:40 08:40 WBC 2.9 L (3.8-10.6) k/uL RBC 2.86 L (3.80-5.40) m/uL Hgb 8.0 L (11.4-16.0) gm/dL Hct 24.2 L (34.0-46.0) % RDW 16.7 H (11.5-15.5) % Plt Count 107 L (150-450) k/uL Sodium (137-145) mmol/L Potassium (3.5-5.1) mmol/L Chloride (98-107) mmol/L BUN (7-17) mg/dL Osmolality 309 H (280-301) mosm/kg Calcium (8.4-10.2) mg/dL Total Bilirubin (0.2-1.3) mg/dL AST (14-36) U/L ALT (4-34) U/L Total Protein (6.3-8.2) g/dL Albumin (3.5-5.0) g/dL Urine Protein 1+ H (Negative) Urine Ketones 2+ H (Negative) Urine Mucus Rare H (None) /hpf 06/27/22 Range/Units 08:40 WBC (3.8-10.6) k/uL RBC (3.80-5.40) m/uL Hgb (11.4-16.0) gm/dL Hct (34.0-46.0) % RDW (11.5-15.5) % Plt Count (150-450) k/uL Sodium 136 L (137-145) mmol/L Potassium 3.4 L (3.5-5.1) mmol/L Chloride 108 H (98-107) mmol/L BUN 5 L (7-17) mg/dL Osmolality (280-301) mosm/kg Calcium 7.0 L (8.4-10.2) mg/dL Total Bilirubin 1.9 H (0.2-1.3) mg/dL AST 71 H (14-36) U/L ALT 40 H (4-34) U/L Total Protein 6.0 L (6.3-8.2) g/dL Albumin 2.9 L (3.5-5.0) g/dL Urine Protein (Negative) Urine Ketones (Negative) Urine Mucus (None) /hpf
[2022-06-28] MEDS: MORPHINE SULFATE 4 MG/ML SYRINGE IVP PRN ×3 (00:54→21:01)
[2022-06-28] MEDS: HEPARIN SODIUM,PORCINE/PF 5,000 UNIT/0.5 ML SYRINGE SQ SCH ×4 (00:54→23:55)
[2022-06-28 01:36] LABS: Cocaine Screen,Urine Not Detected (NotDetected); Opiate Screen,Urine Detected (NotDetected); Phencyclidine Screen,Urine Not Detected (NotDetected); Urn Cannabinoid Scrn Detected (NotDetected)
[2022-06-28 01:37] LABS: Amphetamine Screen,Urine Not Detected (NotDetected); Barbiturate Screen,Urine Not Detected (NotDetected); Benzodiazepines Screen,Urine Detected (NotDetected); Methadone Screen, Urine Not Detected (NotDetected); Oxycodone Screen, Urine Not Detected (NotDetected); Tricyclic Antidepressant,Urine Not Detected (NotDetected)
[2022-06-28] MEDS: LORazepam 2 MG/ML INJ IV PRN ×2 (01:43→16:17)
[2022-06-28] MEDS ORDERED: Potassium Replacement Protocol 1 EACH MISC MISCELLANE PRN ×3 (03:42→16:26)
[2022-06-28] MEDS: POTASSIUM CHLORIDE ER 20 MEQ TAB.ER PO SCH ×3 (04:06→11:11)
[2022-06-28] MEDS: ACAMPROSATE CALCIUM 333 MG TABLET.DR PO SCH ×3 (08:20→21:08)
[2022-06-28] MEDS: PANTOPRAZOLE 40 MG/10 ML VIAL IVP SCH ×2 (08:20→20:54)
[2022-06-28] MEDS: FOLIC ACID 1 MG TAB PO SCH (08:21)
[2022-06-28] MEDS: MULTIVITAMINS, THERA 1 EACH TAB PO SCH (08:21)
[2022-06-28] MEDS: CITALOPRAM HYDROBROMIDE 20 MG TAB PO SCH (08:21)
[2022-06-28] MEDS: THIAMINE 100 MG TAB PO SCH (08:21)
[2022-06-28] MEDS: SPIRONOLACTONE 25 MG TAB PO SCH (08:21)
[2022-06-28] MEDS: SODIUM CHLORIDE 0.9% 1,000 ML IV SCH ×2 (08:22→23:57)
[2022-06-28 09:44] LABS: Anisocytosis Slight; HCT 24.8 % (34.0-46.0); HGB 7.8 gm/dL (11.4-16.0); Hypochromasia Slight; MCHC 31.6 g/dL (31.0-37.0); MCV 85.3 fL (80.0-100.0); Platelet Count 108 k/uL (150-450); Poikilocytosis Slight; RDW 16.8 % (11.5-15.5); WBC 2.9 k/uL (3.8-10.6)
[2022-06-28 10:05] LABS: ALT 35 U/L (4-34); AST 57 U/L (14-36); African American GFR (CKD) >90 (>60 ml/min/1.73 sqM); Albumin 2.8 g/dL (3.5-5.0); Alkaline Phosphatase 92 U/L (38-126); Anion Gap 3 mmol/L; Blood Urea Nitrogen 4 mg/dL (7-17); Calcium 7.3 mg/dL (8.4-10.2); Carbon Dioxide 25 mmol/L (22-30); Chloride 109 mmol/L (98-107); Glucose 98 mg/dL (74-99); Non-African American GFR(CKD) >90 (>60 ml/min/1.73 sqM); Potassium 3.2 mmol/L (3.5-5.1); Sodium 137 mmol/L (137-145); Total Bilirubin 1.5 mg/dL (0.2-1.3); Total Protein 5.8 g/dL (6.3-8.2)
--- NOTE | 2022-06-28 12:03 | P.PN ---
Subjective Progress Note Date: 06/28/22 Patient is a 41-year-old female with past medical history significant for alcohol abuse, depression presented to the ER complaining of intractable abdominal pain for multiple days, nausea and patient was seen in the hospital. Patient was seen in the hospital in [facility] for alcohol detox and was later discharged. However since her discharge she has been staying with her father's place and apparently She has been drinking isopropyl alcohol. She states she has been drinking an approximate 32 ounce bottle and sipping on it for the last 2-3 days. She had approximately one third of the bottle left over according to when then the bottle was discovered. Patient was brought to the ER. Patient had initial workup done in the ER, Chest x-ray revealed no acute cardiopulmonary process. Patient's gallbladder ultrasound and right flank ultrasound was negative for cholecystitis and negative for hydronephrosis. Brain CT revealed no acute intracranial process. CT and pelvis revealed liver cirrhosis but no acute intra-abdominal process otherwise. Laboratory studies remarkable for chronic anemia with a hemoglobin of 9.8. Patient has an elevated osmolality with the osmolar gap of approximately 56 which is enlarged. Patient has a lactic acidosis of 3.3. AST, ALT are mildly elevated as well. Patient's lipase is just mildly elevated to 407. Salicylates level is positive at 7.5. Tylenol level is negative. Serum alcohol level is positive at 10. ER discussed with poison control, and they recommended supportive care as well as repeating the aspirin level at the 3 hour darinel after the initial. She'll be admitted for further evaluation and treatment 06/27. Patient seen and examined. Patient much more awake compared to yesterday, answering questions appropriately. Denies any nausea or vomiting. Blood pressure 118/65, pulse rate of 90, respiration of 16 06/28. Patient seen and examined. Hemoglobin this morning is 7.8, potassium is 3.2. Complaining of lightheadedness and dizziness. Blood pressure this morning is blood pressure is 118/68, pulse 79, respiratory rate of 16 REVIEW OF SYSTEMS: CONSTITUTIONAL: No fever, no malaise,. CARDIOVASCULAR: No chest pain, no palpitations, no syncope. PULMONARY: No shortness of breath, no cough, GASTROINTESTINAL: No diarrhea, no nausea, no vomiting, no abdominal pain. NEUROLOGICAL: No headaches, no weakness, Complaint of lightheadedness or dizziness PHYSICAL EXAMINATION: GENERAL: The patient is alert and oriented x3, not in any acute distress. Well developed, well nourished. HEENT: Pupils are round and equally reacting to light. EOMI. No scleral icterus. No conjunctival pallor. Normocephalic, atraumatic. No pharyngeal erythema. No thyromegaly. CARDIOVASCULAR: S1 and S2 present. No murmurs, rubs, or gallops. PULMONARY: Chest is clear to auscultation, no wheezing or crackles. ABDOMEN: Soft, nontender, nondistended, normoactive bowel sounds. No palpable organomegaly. MUSCULOSKELETAL: No joint swelling or deformity. EXTREMITIES: No cyanosis, clubbing, or pedal edema. NEUROLOGICAL: Gross neurological examination did not reveal any focal deficits. SKIN: No rashes. Assessment and plan Isopropyl alcohol intake Elevated osmolar gap Lactic acidosis Alcohol Use Disorder, Severe Major Depressive Disorder, recurrent, moderate Elevated LFTs Plan; Monitor vital signs Monitor CMP monitor electrolytes. Continue CIWA protocol Poison control on board Continue IV fluids Continue antiemetics Potassium replacement ordered Psych recommended the following Continue Campral 333 mg by mouth three times daily for alcohol cessation Continue citalopram 20 mg daily for depression/anxiety Encourage ambulation Encourage oral intake Objective - Vital Signs Vital signs: Vital Signs Temp 97.6 F 06/28/22 08:00 Pulse 79 06/28/22 11:14 Resp 16 06/28/22 11:14 BP 118/68 06/28/22 11:14 Pulse Ox 95 06/28/22 11:14 FiO2 Intake & Output 06/27/22 06/28/22 06/28/22 18:59 06:59 18:59 Intake Total 118 Balance 118 Intake: Oral 118 Other: Voiding Method Bedpan Bedpan Bedpan # Voids 2 2 # Bowel Movements 2 - Labs CBC & Chem 7: 06/28/22 08:58 06/28/22 08:58 Labs: Abnormal Lab Results - Last 24 Hours (Table) 06/28/22 06/28/22 06/28/22 Range/Units 01:00 08:58 08:58 WBC 2.9 L (3.8-10.6) k/uL RBC 2.90 L (3.80-5.40) m/uL Hgb 7.8 L (11.4-16.0) gm/dL Hct 24.8 L (34.0-46.0) % RDW 16.8 H (11.5-15.5) % Plt Count 108 L (150-450) k/uL Potassium 3.2 L (3.5-5.1) mmol/L Chloride 109 H (98-107) mmol/L BUN 4 L (7-17) mg/dL Calcium 7.3 L (8.4-10.2) mg/dL Total Bilirubin 1.5 H (0.2-1.3) mg/dL AST 57 H (14-36) U/L ALT 35 H (4-34) U/L Total Protein 5.8 L (6.3-8.2) g/dL Albumin 2.8 L (3.5-5.0) g/dL Urine Opiates Screen Detected H (NotDetected) U Benzodiazepines Scrn Detected H (NotDetected) U Marijuana (THC) Screen Detected H (NotDetected)
[2022-06-28] MEDS ORDERED: POTASSIUM CHLORIDE ER 20 MEQ TAB.ER PO SCH (17:00)
[2022-06-29 07:30] LABS: Anisocytosis Slight; HCT 25.5 % (34.0-46.0); HGB 8.2 gm/dL (11.4-16.0); Hypochromasia Slight; MCH 27.6 pg (25.0-35.0); MCHC 32.1 g/dL (31.0-37.0); MCV 86.1 fL (80.0-100.0); Platelet Count 102 k/uL (150-450); Poikilocytosis Slight; RBC 2.96 m/uL (3.80-5.40); RDW 16.8 % (11.5-15.5); WBC 2.7 k/uL (3.8-10.6)
[2022-06-29 07:38] LABS: ALT 35 U/L (4-34); AST 53 U/L (14-36); African American GFR (CKD) >90 (>60 ml/min/1.73 sqM); Albumin 2.7 g/dL (3.5-5.0); Alkaline Phosphatase 80 U/L (38-126); Anion Gap 0 mmol/L; Blood Urea Nitrogen 3 mg/dL (7-17); Calcium 7.3 mg/dL (8.4-10.2); Carbon Dioxide 27 mmol/L (22-30); Chloride 110 mmol/L (98-107); Glucose 83 mg/dL (74-99); Non-African American GFR(CKD) >90 (>60 ml/min/1.73 sqM); Sodium 137 mmol/L (137-145); Total Bilirubin 1.8 mg/dL (0.2-1.3); Total Protein 5.7 g/dL (6.3-8.2)
[2022-06-29] MEDS: ACAMPROSATE CALCIUM 333 MG TABLET.DR PO SCH (08:48)
[2022-06-29] MEDS: CITALOPRAM HYDROBROMIDE 20 MG TAB PO SCH (08:48)
[2022-06-29] MEDS: MULTIVITAMINS, THERA 1 EACH TAB PO SCH (08:48)
[2022-06-29] MEDS: THIAMINE 100 MG TAB PO SCH (08:49)
[2022-06-29] MEDS: HEPARIN SODIUM,PORCINE/PF 5,000 UNIT/0.5 ML SYRINGE SQ SCH (08:49)
[2022-06-29] MEDS: SPIRONOLACTONE 25 MG TAB PO SCH (08:49)
[2022-06-29] MEDS: FOLIC ACID 1 MG TAB PO SCH (08:49)
[2022-06-29] MEDS: PANTOPRAZOLE 40 MG/10 ML VIAL IVP SCH (08:49)
[2022-06-29 08:56] VITALS: RESP 16; TEMP 98
--- NOTE | 2022-06-29 12:09 | CDI ---
Documentation Clarification Form Date: 06/29/2022 11:54:21 AM From: Kinsey WilsonCardenasJOEY valadez, CCDS Admit Date: 06/25/2022 3:37:00 PM Patient Name: Bhavna Pro V Visit Number: [id number] Discharge Date: ATTENTION: The Clinical Documentation Specialists (CDI) and [facility] Coding Staff appreciate your assistance in clarifying documentation. Please respond to the clarification below the line at the bottom and electronically sign. The CDI & [facility] Coding staff will review the response and follow-up if needed. Please note: Queries are made part of the Legal Health Record. If you have any questions, please contact the author of this message via ITS. Dr. Rayray Dyer: Your patient has an abnormal lab value on 06/26, 06/27 & 06/28: K level 3.2, 3.4, 3.2. Potassium replacement ordered is documented in the 06/27 & 06/28 Attending Progress Notes. Please clarify if there is an additional diagnosis and/or clinical significance related to this value. History/Risk Factors per the 06/26 H/P: Alcohol Abuse, Esophageal Varices, Gallstones, Major Depressive Disorder, recurrent, moderate; Anxiety, Chronic Anemia, Liver Disease and Smoker. Clinical indicators: Presented to the ED on 06/25 with Nausea, Vomiting, Diarrhea and Abdominal Pain with history of Chronic Alcohol Abuse. Admit with Cirrhosis, High serum osmolar gap, Isopropyl Alcohol Poisoning, Dehydration, Lactic Acidosis, Normocytic Anemia and History of Alcohol Abuse. LABS: K 06/25: 3.8 K 06/26: 3.2 K 06/27: 3.4 K 06/28: 3.2, 3.6 K 06/29 4.0 Treatment 06/25: Drug Screen, IV Protonix 40 mg x1, IV Na Chloride 1,000 mls @ 999 mls/hr q1H x2, po Ativan 1 mg x1, IV Morphine 4 mg x2, IV Na Chl 1,000 mls @ 130 mls/hr q7H, IV Zofran 4 mg q8H, Heparin 5,000 units sq q8H, IV Protonix 40 mg BID, IV Ativan 1 mg -2 mg Q10 - 2H/prn (CIWA protocol), IM Vit B1 100 mg x1. 06/26 Psych Consult, IV Calcium Gluconate/Na Chl 100 mls @ 100 mls/hr x1, IV Kcl 10 meq 100 mls @ 100 mls/hr q1H. 06/28: K-Dur 20 20 meq PO q1H x3. Is there an additional diagnosis and/or clinical significance related to the above lab result/information? [ x ] Hypokalemia, not present on admission [ ] Hypokalemia, present on admission [ ] No additional diagnosis/Not clinically significant [ ] Other, please specify: [ ] Unable to determine (Template Last Revised: July 2020) MTDD
--- NOTE | 2022-06-29 12:17 | CDI ---
Documentation Clarification Form Date: 06/29/2022 12:10:00 PM From: Kinsey Cardenas CCS, CCDS Admit Date: 06/25/2022 3:37:00 PM Patient Name: Bhavna Pro V Visit Number: [id number] Discharge Date: ATTENTION: The Clinical Documentation Specialists (CDI) and [facility] Coding Staff appreciate your assistance in clarifying documentation. Please respond to the clarification below the line at the bottom and electronically sign. The CDI & [facility] Coding staff will review the response and follow-up if needed. Please note: Queries are made part of the Legal Health Record. If you have any questions, please contact the author of this message via ITS. Dr. Rayray Dyer: Chronic and Normocytic Anemia is documented in the 06/25 ED Note. Chronic Anemia is documented in the 06/26 H/P and in subsequent Attending Physician Progress Notes on 06/27 & 06/28. Additional specificity regarding the Type & Acuity of Anemia is requested. History/Risk Factors per the 06/26 H/P: Alcohol Abuse, Esophageal Varices, Gallstones, Major Depressive Disorder, recurrent, moderate; Anxiety, Chronic Anemia, Liver Disease and Smoker. Clinical indicators: Presented to the ED on 06/25 with Nausea, Vomiting, Diarrhea and Abdominal Pain with history of Chronic Alcohol Abuse. Admit with Cirrhosis, High serum osmolar gap, Isopropyl Alcohol Poisoning, Dehydration, Lactic Acidosis, Normocytic Anemia and History of Alcohol Abuse. LABS: Hemoglobin 06/25: 9.8. 06/26: 8.1. 06/27: 8.0. 06/28: 7.8. 06/29: 8.2. Hematocrit 06/25: 30.0. 06/26: 24.6. 06/27: 23.2. 06/28: 24.8. 06/29: 25.5. Treatment 06/25: Drug Screen, IV Protonix 40 mg x1, IV Na Chloride 1,000 mls @ 999 mls/hr q1H x2, po Ativan 1 mg x1, IV Morphine 4 mg x2, IV Na Chl 1,000 mls @ 130 mls/hr q7H, IV Zofran 4 mg q8H, Heparin 5,000 units sq q8H, IV Protonix 40 mg BID, IV Ativan 1 mg -2 mg Q10 - 2H/prn (CIWA protocol), IM Vit B1 100 mg x1. 06/26 Psych Consult, IV Calcium Gluconate/Na Chl 100 mls @ 100 mls/hr x1, IV Kcl 10 meq 100 mls @ 100 mls/hr q1H. 06/28: K-Dur 20 20 meq PO q1H x3. Please clarify the Type & Acuity of Anemia: [ ] Chronic blood loss anemia [ ] Hemolytic anemia [ ] Drug induced anemia [ ] Nutritional anemia [ ] Anemia of chronic disease [ ] Unable to determine [ ] Other, please specify: (Template Last Revised: July 2020) MTDD
[2022-06-29 12:32] VITALS: BP 118/76; PULSE 89
--- NOTE | 2022-06-29 12:45 | P.DS ---
Providers Date of admission: 06/25/22 15:37 Expected date of discharge: 06/29/22 Attending physician: Hallie Modi Consults: 06/26/22 09:51 Consult Physician Urgent Consulting Provider: Psychiatry - [facility] Psychiatry Consult Reason/Comments: depersion, ETOH hx, isopropyl alcohol intox Do you want consulting provider notified?: Yes Primary care physician: Isaias Johnson [facility] Course: Discharge diagnoses; Isopropyl alcohol intake Elevated osmolar gap Lactic acidosis Alcohol Use Disorder, Severe Major Depressive Disorder, recurrent, moderate Elevated LFTs Hospital course; Patient is a 41-year-old female with past medical history significant for alcohol abuse, depression presented to the ER complaining of intractable abdominal pain for multiple days, nausea and patient was seen in the hospital. Patient was seen in the hospital in [place] area for alcohol detox and was later discharged. However since her discharge she has been staying with her father's place and apparently She has been drinking isopropyl alcohol. She states she has been drinking an approximate 32 ounce bottle and sipping on it for the last 2-3 days. She had approximately one third of the bottle left over according to when then the bottle was discovered. Patient was brought to the ER. Patient had initial workup done in the ER, Chest x-ray revealed no acute cardiopulmonary process. Patient's gallbladder ultrasound and right flank ultrasound was negative for cholecystitis and negative for hydronephrosis. Brain CT revealed no acute intracranial process. CT and pelvis revealed liver cirrhosis but no acute intra-abdominal process otherwise. Laboratory studies remarkable for chronic anemia with a hemoglobin of 9.8. Patient has an elevated osmolality with the osmolar gap of approximately 56 which is enlarged. Patient has a lactic acidosis of 3.3. AST, ALT are mildly elevated as well. Patient's lipase is just mildly elevated to 407. Salicylates level is positive at 7.5. Tylenol level is negative. Serum alcohol level is positive at 10. ER discussed with poison control, and they recommended supportive care as well as repeating t he aspirin level at the 3 hour darinel after the initial. She'll be admitted for further evaluation and treatment 06/27. Patient seen and examined. Patient much more awake compared to yesterday, answering questions appropriately. Denies any nausea or vomiting. Blood pressure 118/65, pulse rate of 90, respiration of 16 06/28. Patient seen and examined. Hemoglobin this morning is 7.8, potassium is 3.2. Complaining of lightheadedness and dizziness. Blood pressure this morning is blood pressure is 118/68, pulse 79, respiratory rate of 16 06/29. Patient seen and examined. Patient hemodynamically stable. Electrolytes are normal. Poison control has signed off. Being discharged to follow-up outpatient with PCP PHYSICAL EXAMINATION: GENERAL: The patient is alert and oriented x3, not in any acute distress. Well developed, well nourished. HEENT: Pupils are round and equally reacting to light. EOMI. No scleral icterus. No conjunctival pallor. Normocephalic, atraumatic. No pharyngeal erythema. No thyromegaly. CARDIOVASCULAR: S1 and S2 present. No murmurs, rubs, or gallops. PULMONARY: Chest is clear to auscultation, no wheezing or crackles. ABDOMEN: Soft, nontender, nondistended, normoactive bowel sounds. No palpable organomegaly. MUSCULOSKELETAL: No joint swelling or deformity. EXTREMITIES: No cyanosis, clubbing, or pedal edema. NEUROLOGICAL: Gross neurological examination did not reveal any focal deficits. SKIN: No rashes. Patient Condition at Discharge: Serious Plan - Discharge Summary Discharge Rx Participant: Yes New Discharge Prescriptions: New RX: Folic Acid 1 mg PO DAILY #30 tab RX: Thiamine [Vitamin B-1] 100 mg PO DAILY #30 tab RX: Acamprosate Calcium [Campral] 333 mg PO TID #45 tab Continue RX: ursodioL [Ursodiol] 300 mg PO BID RX: Citalopram Hydrobromide [CeleXA] 20 mg PO DAILY RX: Spironolactone [Aldactone] 25 mg PO DAILY RX: Pantoprazole [Protonix] 40 mg PO BID RX: Ibuprofen [Motrin] 600 mg PO Q6HR PRN PRN Reason: Pain Or Fever > 100.5 Discontinued Cephalexin [Keflex] 250 mg PO Q6HR Discharge Medication List RX: Pantoprazole [Protonix] 40 mg PO BID 01/23/22 [History] RX: Spironolactone [Aldactone] 25 mg PO DAILY 01/23/22 [History] RX: ursodioL [Ursodiol] 300 mg PO BID 01/23/22 [History] RX: Citalopram Hydrobromide [CeleXA] 20 mg PO DAILY 02/05/22 [History] RX: Ibuprofen [Motrin] 600 mg PO Q6HR PRN 06/25/22 [History] RX: Acamprosate Calcium [Campral] 333 mg PO TID #45 tab 06/29/22 [Rx] RX: Folic Acid 1 mg PO DAILY #30 tab 06/29/22 [Rx] RX: Thiamine [Vitamin B-1] 100 mg PO DAILY #30 tab 06/29/22 [Rx] Follow up Appointment(s)/Referral(s): Isaias Johnson MD [Primary Care Provider] - 1-2 days Discharge/Stand Alone Forms: AA Meetings [place], Community Resources, Outpatient Counseling, In Substance Abuse Facilities, Personal [employer]ician Discharge Disposition: HOME SELF-CARE
--- NOTE | 2022-06-30 08:33 | CDI ---
Documentation Clarification Form Date: 06/29/2022 12:10:00 PM From: Kinsey Cardenas CCS, CCDS Admit Date: 06/25/2022 3:37:00 PM Patient Name: Bhavna Pro V Visit Number: [id number] Discharge Date: 06/29/2022 1:35:00 PM ATTENTION: The Clinical Documentation Specialists (CDI) and [facility] Coding Staff appreciate your assistance in clarifying documentation. Please respond to the clarification below the line at the bottom and electronically sign. The CDI & [facility] Coding staff will review the response and follow-up if needed. Please note: Queries are made part of the Legal Health Record. If you have any questions, please contact the author of this message via ITS. Dr. Rayray Dyer: Chronic and Normocytic Anemia is documented in the 06/25 ED Note. Chronic Anemia is documented in the 06/26 H/P and in subsequent Attending Physician Progress Notes on 06/27 & 06/28. Additional specificity regarding the Type & Acuity of Anemia is requested. History/Risk Factors per the 06/26 H/P: Alcohol Abuse, Esophageal Varices, Gallstones, Major Depressive Disorder, recurrent, moderate; Anxiety, Chronic Anemia, Liver Disease and Smoker. Clinical indicators: Presented to the ED on 06/25 with Nausea, Vomiting, Diarrhea and Abdominal Pain with history of Chronic Alcohol Abuse. Admit with Cirrhosis, High serum osmolar gap, Isopropyl Alcohol Poisoning, Dehydration, Lactic Acidosis, Normocytic Anemia and History of Alcohol Abuse. LABS: Hemoglobin 06/25: 9.8. 06/26: 8.1. 06/27: 8.0. 06/28: 7.8. 06/29: 8.2. Hematocrit 06/25: 30.0. 06/26: 24.6. 06/27: 23.2. 06/28: 24.8. 06/29: 25.5. Treatment 06/25: Drug Screen, IV Protonix 40 mg x1, IV Na Chloride 1,000 mls @ 999 mls/hr q1H x2, po Ativan 1 mg x1, IV Morphine 4 mg x2, IV Na Chl 1,000 mls @ 130 mls/hr q7H, IV Zofran 4 mg q8H, Heparin 5,000 units sq q8H, IV Protonix 40 mg BID, IV Ativan 1 mg -2 mg Q10 - 2H/prn (CIWA protocol), IM Vit B1 100 mg x1. 06/26 Psych Consult, IV Calcium Gluconate/Na Chl 100 mls @ 100 mls/hr x1, IV Kcl 10 meq 100 mls @ 100 mls/hr q1H. 06/28: K-Dur 20 20 meq PO q1H x3. Please clarify the Type & Acuity of Anemia: [ ] Chronic blood loss anemia [ ] Hemolytic anemia [ ] Drug induced anemia [ ] Nutritional anemia [ x] Anemia of chronic disease [ ] Unable to determine [ ] Other, please specify: (Template Last Revised: July 2020) MTDD
== END 2022-06-29 13:35 | disposition home or self-care (01) | DRG 918 ==
LOC: EC 12:09 → 3SCARD 15:37
PROVIDERS: ADMIT Internal Medicine; ATTEND Internal Medicine
DX: T51.2X1A Toxic effect of 2-Propanol, accidental (unintentional), initial encounter (principal); E87.20 Acidosis, unspecified; I85.00 Esophageal varices without bleeding; F33.1 Major depressive disorder, recurrent, moderate; F10.239 Alcohol dependence with withdrawal, unspecified; D63.8 Anemia in other chronic diseases classified elsewhere; K70.31 Alcoholic cirrhosis of liver with ascites; K70.9 Alcoholic liver disease, unspecified; Z28.310 Unvaccinated for COVID-19; E86.0 Dehydration; Y90.0 Blood alcohol level of less than 20 mg/100 ml; E87.6 Hypokalemia; F41.9 Anxiety disorder, unspecified; K80.20 Calculus of gallbladder without cholecystitis without obstruction; F17.210 Nicotine dependence, cigarettes, uncomplicated; Z71.6 Tobacco abuse counseling; Z79.899 Other long term (current) drug therapy; Z87.442 Personal history of urinary calculi; Z71.41 Alcohol abuse counseling and surveillance of alcoholic; Y92.009 Unspecified place in unspecified non-institutional (private) residence as the place of occurrence of the external cause; Z63.72 Alcoholism and drug addiction in family; Z81.1 Family history of alcohol abuse and dependence
CPT/HCPCS: 36415; 70450; 71045; 74177; 76705; 80053; 80143; 80179; 80306; 80320; 81001; 82009; 82150; 82803; 83605; 83690; 83930; 83935; 84132; 84260; 84450; 84460; 85025; 85027; 85610; 85730; 93005; 96361; 96372; 96374; 96375; 99291

== ENCOUNTER 2022-09-02 01:08 | Inpatient (IN) | payer OTHER ==
[2022-09-02] MEDS ORDERED: SODIUM CHLORIDE 0.9% 1,000 ML IV STA (01:42)
[2022-09-02] MEDS ORDERED: THIAMINE 100 MG/ML 2 ML VIAL IM STA (01:52)
[2022-09-02] MEDS ORDERED: LORazepam 2 MG/ML INJ IV PRN (01:52)
--- NOTE | 2022-09-02 02:09 | XR ---
EXAMINATION TYPE: XR chest 2V DATE OF EXAM: 09/02/2022 COMPARISON: 06/25/2022 HISTORY: Heart racing TECHNIQUE: 2 views FINDINGS: Heart and mediastinum are normal. Lungs are clear. Diaphragm is normal. Bony thorax appears normal. IMPRESSION: Normal chest. No change.
[2022-09-02] MEDS: LORazepam 2 MG/ML INJ IV PRN ×5 (02:10→19:40)
[2022-09-02 02:25] LABS: Anisocytosis Slight; Basophils % (A) 1 %; Eosinophils # (A) 0.1 k/uL (0-0.7); Eosinophils % (A) 2 %; Lymphocytes % (A) 26 %; MCH 25.7 pg (25.0-35.0); MCHC 33.1 g/dL (31.0-37.0); Mean Platelet Volume 9.1; Microcytosis Slight; Monocytes # (A) 0.2 k/uL (0-1.0); Monocytes % (A) 4 %; Neutrophils # (A) 2.5 k/uL (1.3-7.7); Neutrophils % (A) 64 %; Platelet Count 103 k/uL (150-450); RBC 3.86 m/uL (3.80-5.40); RDW 18.9 % (11.5-15.5); WBC 3.8 k/uL (3.8-10.6)
--- NOTE | 2022-09-02 02:25 | ED ---
Alcohol HPI - General Chief Complaint: Alcohol Stated Complaint: Alcohol Withdrawal Time Seen by Provider: 09/02/22 01:30 Source: patient Mode of arrival: ambulatory Limitations: no limitations - History of Present Illness Initial Comments: Patient is a 41-year-old female history of alcoholism presenting for evaluation. Patient states that she normally drinks 2 pints of liquor every night, today she had about 12 beers and 2 shots. Last drink was a beer about an hour prior to arrival. Patient states that she wants to be here "to get all of this alcohol out of my system". Patient is unsure if she wants to be placed into a rehab at this time. She admits to anxiety. She admits to headache, nausea and vomiting. She admits to abdominal soreness, states that she has chronic abdominal pain in the right upper quadrant due to an enlarged liver. She states that this is a monthly cycle for her in relation to her menstrual period. Patient denies any chest pain or difficulty breathing. She admits to palpitations and feels like her heart is racing. She admits to anxiety. - Related Data Home Medications Medication Instructions Recorded Confirmed Pantoprazole [Protonix] 40 mg PO DAILY 01/23/22 09/02/22 ursodioL [Ursodiol] 300 mg PO DAILY 01/23/22 09/02/22 Citalopram Hydrobromide [CeleXA] 10 mg PO DAILY 02/05/22 09/02/22 Allergies Allergy/AdvReac Type Severity Reaction Status Date / Time No Known Allergies Allergy Verified 09/02/22 10:42 Review of Systems ROS Statement: Those systems with pertinent positive or pertinent negative responses have been documented in the HPI. ROS Other: All systems not noted in ROS Statement are negative. Past Medical History Past Medical History: Liver Disease Additional Past Medical History / Comment(s): some esophageal varices, gallstones kidney stones History of Any Multi-Drug Resistant Organisms: None Reported Past Surgical History: Tonsillectomy Past Anesthesia/Blood Transfusion Reactions: No Reported Reaction Past Psychological History: Anxiety, Depression Smoking Status: Current every day smoker Past Alcohol Use History: Daily, Heavy Past Drug Use History: Marijuana General Exam Limitations: no limitations General appearance: alert, anxious Head exam: Present: atraumatic, normocephalic, normal inspection Eye exam: Present: normal appearance Neck exam: Present: normal inspection Respiratory exam: Present: normal lung sounds bilaterally. Absent: respiratory distress, wheezes, rales, rhonchi, stridor Cardiovascular Exam: Present: normal rhythm, tachycardia, normal heart sounds. Absent: systolic murmur, diastolic murmur, rubs, gallop, clicks GI/Abdominal exam: Present: soft, tenderness (RUQ ). Absent: distended, guarding, rebound, rigid Neurological exam: Present: alert Psychiatric exam: Present: anxious Skin exam: Present: warm, dry, intact, normal color. Absent: rash Course Vital Signs 09/02/22 09/02/22 09/02/22 01:12 03:20 04:00 Temperature 98.3 F Pulse Rate 133 H 114 H 99 Respiratory 18 16 16 Rate Blood Pressure 140/83 116/68 97/58 O2 Sat by Pulse 95 95 98 Oximetry 09/02/22 09/02/22 05:00 11:29 Temperature 98.3 F Pulse Rate 102 H 89 Respiratory 16 16 Rate Blood Pressure 100/55 120/87 O2 Sat by Pulse 94 L 96 Oximetry Medical Decision Making - Medical Decision Making Was pt. sent in by a medical professional or institution (, PA, WELFARE INVESTIGATOR, urgent care, hospital, or detention...) When possible be specific @ -No Did you speak to anyone other than the patient for history (EMS, parent, family, police, friend...)? What history was obtained from this source @ -No Did you review nursing and triage notes (agree or disagree)? Why? @ -I reviewed and agree with nursing and triage notes Were old charts reviewed (outside hosp., previous admission, EMS record, old EKG, old radiological studies, urgent care reports/EKG's, detention records)? Report findings @ -No old charts were reviewed Differential Diagnosis (chest pain, altered mental status, abdominal pain women, abdominal pain men, vaginal bleeding, weakness, fever, dyspnea, syncope, headache, dizziness, GI bleed, back pain, seizure, CVA, palpatations, mental health, musculoskeletal)? @ -not applicable EKG interpreted by me (3pts min.). @ -Sinus tachycardia ventricular rate 108. IL interval 135. QRS 83. QT 369. QTC 433. Normal axis. X-rays interpreted by me (1pt min.). @ -Chest x-ray shows no acute process CT interpreted by me (1pt min.). @ -None done U/S interpreted by me (1pt. min.). @ -None done What testing was considered but not performed or refused? (CT, X-rays, U/S, labs)? Why? @ -None What meds were considered but not given or refused? Why? @ -None Did you discuss the management of the patient with other professionals (professionals i.e. Dr., PA, WELFARE INVESTIGATOR, lab, RT, psych nurse, social work program coordinator, trucker hand, teacher, public service officer, caser shoe parts)? Give summary @ -No Was smoking cessation discussed for >3mins.? @ -No Was critical care preformed (if so, how long)? @ -No Were there social determinants of health that impacted care today? How? (Homelessness, low income, unemployed, alcoholism, drug addiction, transportation, low edu. Level, literacy, decrease access to med. care, senior living, rehab)? @ -Alcoholism Was there de-escalation of care discussed even if they declined (Discuss DNR or withdrawal of care, Hospice)? DNR status @ -No What co-morbidities impacted this encounter? (DM, HTN, Smoking, COPD, CAD, Cancer, CVA, ARF, Chemo, Hep., AIDS, mental health diagnosis, sleep apnea, morbid obesity)? @ -Liver disease Was patient admitted / discharged? Hospital course, mention meds given and route, prescriptions, significant lab abnormalities, going to OR and other pertinent info. @ -Patient is a 41-year-old female history of alcoholism presenting for evaluation. Patient is currently intoxicated, states that she wants to be admitted for detox and possibly placed in rehab. She is complaining of nausea, vomiting, headache, racing heart rate, and anxiety. On physical examination the patient is tearful and anxious, she is tachycardic. No tremors noted. BAT 0.21. CIWA scale is ordered. Hemoglobin 9.9, patient does have chronic anemia. Bilirubin 2.3 and AST 119 ALT 67 alkaline phosphatase 130, these are chronically elevated in this patient. Potassium 3.2, she is placed on oral replacement. Urine shows no sign of infectious process or bleeding. Urine toxicology is positive for marijuana. Chest x-ray shows no acute process. Patient will be admitted for alcohol intoxication. I spoke with admitting BISHOP Rhona Denny who accepted admission. I discussed this case with my attending Dr. José Undiagnosed new problem with uncertain prognosis? @ -No Drug Therapy requiring intensive monitoring for toxicity (Heparin, Nitro, Insulin, Cardizem)? @ -No Were any procedures done? @ -No Diagnosis/symptom? @ -Alcohol intoxication Acute, or Chronic, or Acute on Chronic? @ -Acute on chronic Uncomplicated (without systemic symptoms) or Complicated (systemic symptoms)? @ -Complicated Side effects of treatment? @ -No Exacerbation, Progression, or Severe Exacerbation? @ -No Poses a threat to life or bodily function? How? (Chest pain, USA, NC, pneumonia, PE, COPD, DKA, ARF, appy, cholecystitis, CVA, Diverticulitis, Homicidal, S uicidal, threat to staff... and all critical care pts) @ -Yes - Lab Data Result diagrams: 09/03/22 08:04 09/04/22 07:58 Lab Results 09/02/22 09/02/22 09/02/22 Range/Units 01:39 01:39 01:39 WBC 3.8 (3.8-10.6) k/uL RBC 3.86 (3.80-5.40) m/uL Hgb 9.9 L D (11.4-16.0) gm/dL Hct 30.0 L (34.0-46.0) % MCV 77.8 L D (80.0-100.0) fL MCH 25.7 (25.0-35.0) pg MCHC 33.1 (31.0-37.0) g/dL RDW 18.9 H (11.5-15.5) % Plt Count 103 L (150-450) k/uL MPV 9.1 Neutrophils % 64 % Lymphocytes % 26 % Monocytes % 4 % Eosinophils % 2 % Basophils % 1 % Neutrophils # 2.5 (1.3-7.7) k/uL Lymphocytes # 1.0 (1.0-4.8) k/uL Monocytes # 0.2 (0-1.0) k/uL Eosinophils # 0.1 (0-0.7) k/uL Basophils # 0.0 (0-0.2) k/uL Anisocytosis Slight Microcytosis Slight PT 14.3 H (9.0-12.0) sec INR 1.4 H (<1.2) Sodium (137-145) mmol/L Potassium (3.5-5.1) mmol/L Chloride (98-107) mmol/L Carbon Dioxide (22-30) mmol/L Anion Gap mmol/L BUN (7-17) mg/dL Creatinine (0.52-1.04) mg/dL Est GFR (CKD-EPI)AfAm (>60 ml/min/1.73 sqM) Est GFR (CKD-EPI)NonAf (>60 ml/min/1.73 sqM) Glucose (74-99) mg/dL Calcium (8.4-10.2) mg/dL Phosphorus (2.5-4.5) mg/dL Magnesium (1.6-2.3) mg/dL Total Bilirubin (0.2-1.3) mg/dL AST (14-36) U/L ALT (4-34) U/L Alkaline Phosphatase (38-126) U/L Total Protein (6.3-8.2) g/dL Albumin (3.5-5.0) g/dL Amylase (30-110) U/L Lipase (23-300) U/L Urine Color Light Yellow Urine Appearance Clear (Clear) Urine pH 5.5 (5.0-8.0) Ur Specific [place] 1.001 (1.001-1.035) Urine Protein Negative (Negative) Urine Glucose (UA) Negative (Negative) Urine Ketones Negative (Negative) Urine Blood Negative (Negative) Urine Nitrite Negative (Negative) Urine Bilirubin Negative (Negative) Urine Urobilinogen <2.0 (<2.0) mg/dL Ur Leukocyte Esterase Negative (Negative) Salicylates mg/dL Urine Opiates Screen Not Detected (NotDetected) Ur Oxycodone Screen Not Detected (NotDetected) Urine Methadone Screen Not Detected (NotDetected) Ur Propoxyphene Screen Not Detected (NotDetected) Acetaminophen ug/mL Ur Barbiturates Screen Not Detected (NotDetected) U Tricyclic Antidepress Not Detected (NotDetected) Ur Phencyclidine Scrn Not Detected (NotDetected) Ur Amphetamines Screen Not Detected (NotDetected) U Methamphetamines Scrn Not Detected (NotDetected) U Benzodiazepines Scrn Not Detected (NotDetected) Urine Cocaine Screen Not Detected (NotDetected) U Marijuana (THC) Screen Detected H (NotDetected) 09/02/22 09/02/22 Range/Units 01:39 03:02 WBC (3.8-10.6) k/uL RBC (3.80-5.40) m/uL Hgb (11.4-16.0) gm/dL Hct (34.0-46.0) % MCV (80.0-100.0) fL MCH (25.0-35.0) pg MCHC (31.0-37.0) g/dL RDW (11.5-15.5) % Plt Count (150-450) k/uL MPV Neutrophils % % Lymphocytes % % Monocytes % % Eosinophils % % Basophils % % Neutrophils # (1.3-7.7) k/uL Lymphocytes # (1.0-4.8) k/uL Monocytes # (0-1.0) k/uL Eosinophils # (0-0.7) k/uL Basophils # (0-0.2) k/uL Anisocytosis Microcytosis PT (9.0-12.0) sec INR (<1.2) Sodium 140 (137-145) mmol/L Potassium 3.2 L (3.5-5.1) mmol/L Chloride 105 (98-107) mmol/L Carbon Dioxide 24 (22-30) mmol/L Anion Gap 11 mmol/L BUN <2 L (7-17) mg/dL Creatinine 0.53 (0.52-1.04) mg/dL Est GFR (CKD-EPI)AfAm >90 (>60 ml/min/1.73 sqM) Est GFR (CKD-EPI)NonAf >90 (>60 ml/min/1.73 sqM) Glucose 115 H (74-99) mg/dL Calcium 8.0 L (8.4-10.2) mg/dL Phosphorus 3.5 (2.5-4.5) mg/dL Magnesium 1.8 (1.6-2.3) mg/dL Total Bilirubin 2.3 H (0.2-1.3) mg/dL AST 119 H (14-36) U/L ALT 67 H (4-34) U/L Alkaline Phosphatase 130 H (38-126) U/L Total Protein 7.3 (6.3-8.2) g/dL Albumin 3.7 (3.5-5.0) g/dL Amylase 68 (30-110) U/L Lipase 218 (23-300) U/L Urine Color Urine Appearance (Clear) Urine pH (5.0-8.0) Ur Specific [place] (1.001-1.035) Urine Protein (Negative) Urine Glucose (UA) (Negative) Urine Ketones (Negative) Urine Blood (Negative) Urine Nitrite (Negative) Urine Bilirubin (Negative) Urine Urobilinogen (<2.0) mg/dL Ur Leukocyte Esterase (Negative) Salicylates <1.0 mg/dL Urine Opiates Screen (NotDetected) Ur Oxycodone Screen (NotDetected) Urine Methadone Screen (NotDetected) Ur Propoxyphene Screen (NotDetected) Acetaminophen <10.0 ug/mL Ur Barbiturates Screen (NotDetected) U Tricyclic Antidepress (NotDetected) Ur Phencyclidine Scrn (NotDetected) Ur Amphetamines Screen (NotDetected) U Methamphetamines Scrn (NotDetected) U Benzodiazepines Scrn (NotDetected) Urine Cocaine Screen (NotDetected) U Marijuana (THC) Screen (NotDetected) Disposition Clinical Impression: Alcoholic intoxication Disposition: ADMITTED IP TO THIS [facility] Condition: Fair Time of Disposition: 03:32
[2022-09-02 02:26] LABS: Appearance,Urine Clear (Clear); Bilirubin,Urine Negative (Negative); Blood,Urine Negative (Negative); Color,Urine Light Yellow; Glucose,Urine (UA) Negative (Negative); Ketones,Urine Negative (Negative); Leukocyte Esterase,Urine Negative (Negative); Nitrite,Urine Negative (Negative); PH, Urine 5.5 (5.0-8.0); Protein,Urine Negative (Negative); Specific Gravity,Urine 1.001 (1.001-1.035); Urobilinogen,Urine <2.0 mg/dL (<2.0)
[2022-09-02 02:27] LABS: INR 1.4 (<1.2); Prothrombin Time 14.3 sec (9.0-12.0)
[2022-09-02 02:42] LABS: ALT 67 U/L (4-34); AST 119 U/L (14-36); African American GFR (CKD) >90 (>60 ml/min/1.73 sqM); Albumin 3.7 g/dL (3.5-5.0); Alkaline Phosphatase 130 U/L (38-126); Amylase 68 U/L (30-110); Anion Gap 11 mmol/L; Blood Urea Nitrogen <2 mg/dL (7-17); Carbon Dioxide 24 mmol/L (22-30); Chloride 105 mmol/L (98-107); Glucose 115 mg/dL (74-99); Lipase 218 U/L (23-300); Magnesium 1.8 mg/dL (1.6-2.3); Non-African American GFR(CKD) >90 (>60 ml/min/1.73 sqM); Phosphorus 3.5 mg/dL (2.5-4.5); Potassium 3.2 mmol/L (3.5-5.1); Sodium 140 mmol/L (137-145); Total Bilirubin 2.3 mg/dL (0.2-1.3); Total Protein 7.3 g/dL (6.3-8.2)
[2022-09-02 02:43] LABS: Amphetamine Screen,Urine Not Detected (NotDetected); Barbiturate Screen,Urine Not Detected (NotDetected); Benzodiazepines Screen,Urine Not Detected (NotDetected); Cocaine Screen,Urine Not Detected (NotDetected); Methadone Screen, Urine Not Detected (NotDetected); Opiate Screen,Urine Not Detected (NotDetected); Oxycodone Screen, Urine Not Detected (NotDetected); Phencyclidine Screen,Urine Not Detected (NotDetected); Tricyclic Antidepressant,Urine Not Detected (NotDetected); Urn Cannabinoid Scrn Detected (NotDetected)
[2022-09-02 02:59] LABS: HGB 9.9 gm/dL (11.4-16.0); MCV 77.8 fL (80.0-100.0)
[2022-09-02] MEDS ORDERED: Potassium Replacement Protocol 1 EACH MISC MISCELLANE PRN (03:29)
[2022-09-02] MEDS ORDERED: IBUPROFEN 400 MG TAB PO PRN (05:02)
[2022-09-02] MEDS ORDERED: NALOXONE 0.4 MG/ML 1 ML VIAL IV PRN (05:02)
[2022-09-02] MEDS ORDERED: MORPHINE SULFATE 4 MG/ML SYRINGE IV PRN (05:02)
[2022-09-02] MEDS: POTASSIUM CHLORIDE ER 20 MEQ TAB.ER PO SCH ×2 (11:18→11:19)
[2022-09-02] MEDS: SODIUM CHLORIDE 0.9% 1,000 ML IV SCH (11:19)
[2022-09-02] MEDS ORDERED: POTASSIUM CHLORIDE ER 20 MEQ TAB.ER PO STA (14:31)
--- NOTE | 2022-09-02 14:32 | P.HPIM ---
History of Present Illness Patient is a pleasant 41-year-old female who drinks 2 pints of alcohol every single day came in with intention to quit alcohol and help with withdrawals. Patient last drink was last night. Patient was in rehab in the past. Patient does have history of depression wishing to see a psychiatrist. Patient drug screen is positive for marijuana. REVIEW OF SYSTEMS: CONSTITUTIONAL: No fever, no malaise, no fatigue. HEENT: No recent visual problems or hearing problems. Denied any sore throat. CARDIOVASCULAR: No chest pain, orthopnea, PND, no palpitations, no syncope. PULMONARY: No shortness of breath, no cough, no hemoptysis. GASTROINTESTINAL: No diarrhea, no nausea, no vomiting, no abdominal pain. NEUROLOGICAL: No headaches, no weakness, no numbness. HEMATOLOGICAL: Denies any bleeding or petechiae. GENITOURINARY: Denies any burning micturition, frequency, or urgency. MUSCULOSKELETAL/RHEUMATOLOGICAL: Denies any joint pain, swelling, or any muscle pain. ENDOCRINE: Denies any polyuria or polydipsia. The rest of the 14-point review of systems is negative. PHYSICAL EXAMINATION: GENERAL: The patient is alert and oriented x3, not in any acute distress. Well developed, well nourished. HEENT: Pupils are round and equally reacting to light. EOMI. No scleral icterus. No conjunctival pallor. Normocephalic, atraumatic. No pharyngeal erythema. No thyromegaly. CARDIOVASCULAR: S1 and S2 present. No murmurs, rubs, or gallops. PULMONARY: Chest is clear to auscultation, no wheezing or crackles. ABDOMEN: Soft, nontender, nondistended, normoactive bowel sounds. No palpable organomegaly. MUSCULOSKELETAL: No joint swelling or deformity. EXTREMITIES: No cyanosis, clubbing, or pedal edema. NEUROLOGICAL: Gross neurological examination did not reveal any focal deficits. SKIN: No rashes. Assessment and plan -Alcohol abuse, physical dependence monitoring for withdrawals and will be treated for alcohol withdrawals: Patient will be continued on IV fluids at a considerably protocol and GI prophylaxis -Nicotine use: Counseling was provided -Depression patient will be resumed on Celexa but this is not going to be effective as long as she continues to drink -Marijuana use: Counseling was provided -Hypokalemia secondary to IV fluids and potassium will be replaced -Alcoholic hepatitis expected to improve with cessation of alcohol DVT prophylaxis: Lovenox Past Medical History Past Medical History: Liver Disease Additional Past Medical History / Comment(s): some esophageal varices, gallstones kidney stones History of Any Multi-Drug Resistant Organisms: None Reported Past Surgical History: Tonsillectomy Past Anesthesia/Blood Transfusion Reactions: No Reported Reaction Past Psychological History: Anxiety, Depression Smoking Status: Current every day smoker, Vaper Past Alcohol Use History: Daily, Heavy Past Drug Use History: Marijuana Medications and Allergies Home Medications Medication Instructions Recorded Confirmed Type Pantoprazole [Protonix] 40 mg PO DAILY 01/23/22 09/02/22 History ursodioL [Ursodiol] 300 mg PO DAILY 01/23/22 09/02/22 History Citalopram Hydrobromide [CeleXA] 10 mg PO DAILY 02/05/22 09/02/22 History Allergies Allergy/AdvReac Type Severity Reaction Status Date / Time No Known Allergies Allergy Verified 09/02/22 10:42 Physical Exam Vitals: Vital Signs Temp Pulse Resp BP Pulse Ox 09/02/22 11:29 98.3 F 89 16 120/87 96 09/02/22 05:00 102 H 16 100/55 94 L 09/02/22 04:00 99 16 97/58 98 09/02/22 03:20 114 H 16 116/68 95 09/02/22 01:12 98.3 F 133 H 18 140/83 95 Intake and Output 09/01/22 09/02/22 09/02/22 22:59 06:59 14:59 Other: Weight 71.532 kg 71.532 kg Results CBC & Chem 7: 09/02/22 01:39 09/02/22 01:39 Labs: Abnormal Lab Results - Last 24 Hours (Table) 09/02/22 09/02/22 09/02/22 Range/Units 01:39 01:39 01:39 Hgb 9.9 L D (11.4-16.0) gm/dL Hct 30.0 L (34.0-46.0) % MCV 77.8 L D (80.0-100.0) fL RDW 18.9 H (11.5-15.5) % Plt Count 103 L (150-450) k/uL PT 14.3 H (9.0-12.0) sec INR 1.4 H (<1.2) Potassium (3.5-5.1) mmol/L BUN (7-17) mg/dL Glucose (74-99) mg/dL Calcium (8.4-10.2) mg/dL Total Bilirubin (0.2-1.3) mg/dL AST (14-36) U/L ALT (4-34) U/L Alkaline Phosphatase (38-126) U/L U Marijuana (THC) Screen Detected H (NotDetected) 09/02/22 Range/Units 01:39 Hgb (11.4-16.0) gm/dL Hct (34.0-46.0) % MCV (80.0-100.0) fL RDW (11.5-15.5) % Plt Count (150-450) k/uL PT (9.0-12.0) sec INR (<1.2) Potassium 3.2 L (3.5-5.1) mmol/L BUN <2 L (7-17) mg/dL Glucose 115 H (74-99) mg/dL Calcium 8.0 L (8.4-10.2) mg/dL Total Bilirubin 2.3 H (0.2-1.3) mg/dL AST 119 H (14-36) U/L ALT 67 H (4-34) U/L Alkaline Phosphatase 130 H (38-126) U/L U Marijuana (THC) Screen (NotDetected) Thrombosis Risk Factor Assmnt - Choose All That Apply Any of the Below Risk Factors Present?: No Each Risk Factor Represents 3 Points: Family history of DVT/PE Thrombosis Risk Factor Assessment Total Risk Factor Score: 3 Thrombosis Risk Factor Assessment Level: Moderate Risk
[2022-09-02] MEDS: CITALOPRAM HYDROBROMIDE 10 MG TAB PO SCH (14:40)
[2022-09-02] MEDS: KETOROLAC 15 MG/ML 1 ML VIAL IVP PRN (14:40)
[2022-09-02] MEDS: FAMOTIDINE 20 MG TAB PO SCH ×2 (14:40→19:41)
[2022-09-02 15:24] LABS: Acetaminophen <10.0 ug/mL; Salicylate <1.0 mg/dL
[2022-09-03] MEDS: SODIUM CHLORIDE 0.9% 1,000 ML IV SCH ×3 (05:31→22:59)
[2022-09-03] MEDS: PANTOPRAZOLE 40 MG TABLET PO SCH ×2 (05:31→09:57)
[2022-09-03 08:45] LABS: Anisocytosis Slight; Basophils % (A) 1 %; Eosinophils # (A) 0.2 k/uL (0-0.7); Eosinophils % (A) 7 %; HCT 28.3 % (34.0-46.0); HGB 8.9 gm/dL (11.4-16.0); Hypochromasia Moderate; Lymphocytes # (A) 0.7 k/uL (1.0-4.8); Lymphocytes % (A) 24 %; MCH 25.7 pg (25.0-35.0); MCHC 31.5 g/dL (31.0-37.0); MCV 81.4 fL (80.0-100.0); Mean Platelet Volume 8.9; Microcytosis Slight; Monocytes # (A) 0.1 k/uL (0-1.0); Monocytes % (A) 4 %; Neutrophils # (A) 1.9 k/uL (1.3-7.7); Neutrophils % (A) 62 %; RBC 3.48 m/uL (3.80-5.40); RDW 19.2 % (11.5-15.5)
[2022-09-03 09:17] LABS: ALT 56 U/L (4-34); AST 102 U/L (14-36); African American GFR (CKD) >90 (>60 ml/min/1.73 sqM); Albumin 2.8 g/dL (3.5-5.0); Alkaline Phosphatase 111 U/L (38-126); Anion Gap 4 mmol/L; Blood Urea Nitrogen 7 mg/dL (7-17); Calcium 7.7 mg/dL (8.4-10.2); Carbon Dioxide 24 mmol/L (22-30); Chloride 110 mmol/L (98-107); Glucose 82 mg/dL (74-99); Magnesium 1.7 mg/dL (1.6-2.3); Non-African American GFR(CKD) >90 (>60 ml/min/1.73 sqM); Potassium 3.8 mmol/L (3.5-5.1); Sodium 138 mmol/L (137-145); Total Bilirubin 2.9 mg/dL (0.2-1.3)
[2022-09-03] MEDS: FAMOTIDINE 20 MG TAB PO SCH ×2 (09:52→21:29)
[2022-09-03] MEDS: KETOROLAC 15 MG/ML 1 ML VIAL IVP PRN (09:57)
[2022-09-03] MEDS: ursodioL 300 MG CAP PO SCH (09:57)
[2022-09-03] MEDS: CITALOPRAM HYDROBROMIDE 10 MG TAB PO SCH (09:58)
[2022-09-03] MEDS: THIAMINE 100 MG TAB PO SCH (09:58)
[2022-09-03] MEDS: LORazepam 2 MG/ML INJ IV PRN (09:58)
[2022-09-03 10:50] LABS: Platelet Count 82 k/uL (150-450)
--- NOTE | 2022-09-03 12:42 | P.PN ---
Subjective Progress Note Date: 09/03/22 Patient is a pleasant 41-year-old female who drinks 2 pints of alcohol every single day came in with intention to quit alcohol and help with withdrawals. Patient last drink was last night. Patient was in rehab in the past. Patient does have history of depression wishing to see a psychiatrist. Patient drug screen is positive for marijuana. 09/03/2022 Patient evaluated today resting in bed with family at bedside. No acute events overnight. Reports tremors are gone. Decreased appetite has not been tolerating oral intake did have an episodes of emesis last night and today. Protonix changed to IVP. Patient will be taken off the IV ativan has require it 2 times in the last 24 hours and making her drowsy. Changed to oral librium with plans to taper on discharge. Patient does not feel ready to go home today. Monitor overnight. Review of Systems Constitutional: Reports fatigue, denied any fever. Cardio vascular: denied any chest pain, palpitations Gastrointestinal: No diarrhea, reports nausea and emesis x 2. Pulmonary: Denied any shortness of breath cough Neurologic denied any new focal deficits All inpatient medications were reviewed and appropriate changes in these medications as dictated in the interval history and assessment and plan. PHYSICAL EXAMINATION: GENERAL: The patient is alert and oriented x3, not in any acute distress. Well developed, well nourished. HEENT: Pupils are round and equally reacting to light. EOMI. No scleral icterus. No conjunctival pallor. Normocephalic, atraumatic. No pharyngeal erythema. No thyromegaly. CARDIOVASCULAR: S1 and S2 present. No murmurs, rubs, or gallops. PULMONARY: Chest is clear to auscultation, no wheezing or crackles. ABDOMEN: Soft, nontender, nondistended, normoactive bowel sounds. No palpable organomegaly. MUSCULOSKELETAL: No joint swelling or deformity. EXTREMITIES: No cyanosis, clubbing, or pedal edema. NEUROLOGICAL: Gross neurological examination did not reveal any focal deficits. SKIN: No rashes. Assessment and plan -Alcohol abuse, physical dependence monitoring for withdrawals and will be treated for alcohol withdrawals: Patient will be continued on IV fluids and changed to oral librium. -Nicotine use: Counseling was provided -Depression patient will be resumed on Celexa but this is not going to be effective as long as she continues to drink -Marijuana use: Counseling was provided -Hypokalemia improved. -Alcoholic hepatitis expected to improve with cessation of alcohol DVT prophylaxis: Lovenox GI prophylaxis: Protonix Full Code Continue to monitor overnight and moniter liver enzymes. Continue oral librium and plans to taper on discharge. Continue supportive care and increase diet as tolerated. The impression and plan of care has been dictated by Ligia Valenzuela, Nurse Practitioner as directed. Dr. Rian MD I have performed a history and physical examination and medical decision making of this patient, discussed the same with the dictator, and agree with the dictators assessment and plan as written, documented as a scribe. Based on total visit time, I have performed more than 50% of this visit. Objective - Vital Signs Vital signs: Vital Signs Temp 97.5 F L 09/03/22 08:00 Pulse 81 09/03/22 12:00 Resp 16 09/03/22 12:00 BP 98/56 09/03/22 12:00 Pulse Ox 98 09/03/22 12:00 FiO2 Intake & Output 09/02/22 09/03/22 09/03/22 18:59 06:59 18:59 Intake Total 20 1090 Balance 20 1090 Weight 71.532 kg Intake: IV 20 10 Invasive Line 1 10 10 Invasive Line 2 10 Intake, IV Titration 600 Amount Sodium Chloride 0.9% 1, 600 000 ml @ 75 mls/hr IV . [id number] [facility] Rx#:[id number] Oral 480 Other: # Voids 1 2 - Labs CBC & Chem 7: 09/03/22 08:04 09/03/22 08:04 Labs: Abnormal Lab Results - Last 24 Hours (Table) 09/03/22 09/03/22 Range/Units 08:04 08:04 WBC 3.0 L (3.8-10.6) k/uL RBC 3.48 L (3.80-5.40) m/uL Hgb 8.9 L (11.4-16.0) gm/dL Hct 28.3 L (34.0-46.0) % RDW 19.2 H (11.5-15.5) % Plt Count 82 L (150-450) k/uL Lymphocytes # 0.7 L (1.0-4.8) k/uL Chloride 110 H (98-107) mmol/L Calcium 7.7 L (8.4-10.2) mg/dL Total Bilirubin 2.9 H (0.2-1.3) mg/dL AST 102 H (14-36) U/L ALT 56 H (4-34) U/L Total Protein 6.0 L (6.3-8.2) g/dL Albumin 2.8 L (3.5-5.0) g/dL Assessment and Plan Time with Patient: Less than 30
[2022-09-03] MEDS: PANTOPRAZOLE 40 MG/10 ML VIAL IVP SCH (21:29)
[2022-09-04 09:23] LABS: ALT 50 U/L (4-34); AST 80 U/L (14-36); African American GFR (CKD) >90 (>60 ml/min/1.73 sqM); Albumin 2.6 g/dL (3.5-5.0); Alkaline Phosphatase 99 U/L (38-126); Anion Gap 4 mmol/L; Blood Urea Nitrogen 8 mg/dL (7-17); Calcium 7.6 mg/dL (8.4-10.2); Carbon Dioxide 26 mmol/L (22-30); Chloride 108 mmol/L (98-107); Glucose 81 mg/dL (74-99); Non-African American GFR(CKD) >90 (>60 ml/min/1.73 sqM); Potassium 3.8 mmol/L (3.5-5.1); Sodium 138 mmol/L (137-145); Total Bilirubin 2.6 mg/dL (0.2-1.3); Total Protein 5.8 g/dL (6.3-8.2)
[2022-09-04] MEDS: ursodioL 300 MG CAP PO SCH (09:42)
[2022-09-04] MEDS: CITALOPRAM HYDROBROMIDE 10 MG TAB PO SCH (09:42)
[2022-09-04] MEDS: THIAMINE 100 MG TAB PO SCH (09:42)
[2022-09-04] MEDS: KETOROLAC 15 MG/ML 1 ML VIAL IVP PRN (09:43)
[2022-09-04] MEDS: PANTOPRAZOLE 40 MG/10 ML VIAL IVP SCH ×2 (09:43→20:20)
[2022-09-04] MEDS: FAMOTIDINE 20 MG TAB PO SCH (09:43)
--- NOTE | 2022-09-04 13:38 | P.GSCN ---
History of Present Illness Consult date: 09/04/22 History of present illness: CHIEF COMPLAINT: Abdominal pain HISTORY OF PRESENT ILLNESS: This is a 41-year-old female with a known history of gallstones and alcoholism. Patient presents to the hospital with the intention to help drinking alcohol. Patient drinks 2 pints daily. She does have a known history of liver cirrhosis. Patient has been complaining of right upper quadrant pain after eating. She has been having nausea. She's had symptoms of rib pain for over a year. Pleasant it has gotten worse recently. She denies any prior abdominal surgeries. Denies any fever, chills or sweats. She does admit to having nausea with the pain after eating. Her LFTs are elevated and trending downwards. Patient denies any cardiac history. PAST MEDICAL HISTORY: See list. PAST SURGICAL HISTORY: See list. MEDICATIONS: See list. ALLERGIES: See list. SOCIAL HISTORY: No illicit drug use. REVIEW OF SYSTEMS: CONSTITUTIONAL: Denies fever or chills. HEENT: Denies blurred vision, vision changes, or eye pain. Denies hemoptysis ENDOCRINE: Denies heat or cold intolerance. CARDIOVASCULAR: Denies chest pain or pressure. RESPIRATORY: No shortness of breath. GASTROINTESTINAL: Denies abdominal pain. Denies nausea or vomiting. NEURO: Denies history of seizures. PSYCH: No depression or suicidal ideation HEMATOLOGIC: Denies bleeding disorders. LYMPHATIC: The patient denies any lumps and bumps around the neck. GENITOURINARY: Denies any blood in urine or increased urinary frequency. MUSCULOSKELETAL: Denies myalgias. Denies joint swelling. Denies decreased range of motion beyond patients baseline. SKIN: Denies pruitis. Denies rash. PHYSICAL EXAM: VITAL SIGNS: Reviewed GENERAL: Well-developed in no acute distress. HEENT: No sclera icterus. Extraocular movements grossly intact. Moist buccal mucosa. Head is atraumatic, normocephalic. Hears conversational speech. No nasal drainage. NECK: Supple without lymphadenopathy. CHEST: Non-labored respirations and equal bilateral excursions. CARDIOVASCULAR: Palpable 2+ radial pulses. ABDOMEN: Soft. Nondistended. Tenderness to palpation of the right upper quadrant MUSCULOSKELETAL: No clubbing or cyanosis. NEUROLOGIC: No focal or lateralizing signs. Cranial nerves II through XII grossly intact. PSYCH: Appropriate affect. Alert and oriented to person, place and time. SKIN: Well perfused. Good skin turgor. LABORATORY DATA: WBC is 3.0 hgb 8.9 plt 82 INR 1.4 Na 138 k 3.8 cr 0.54 Total bilirubin 2.6 AST 119 trending down to 80 ALT 67 trending down to 50 alk phos 99 Lipase 218 Urine drug screen positive for marijuana IMAGING: Abdominal ultrasound pending Chest x-ray normal EKG sinus tachycardia heart rate 108 ASSESSMENT: 1. Right upper quadrant abdominal pain 2. Cholelithiasis 3. Elevated LFTs 4. Daily alcohol use 5. Drug screen positive for marijuana 7. Anemia 8. Thrombocytopenia PLAN: -Medicine service has ordered a gallbladder ultrasound. Will follow-up on results -Add low fat diet -Continue supportive care -Counseled on alcohol cessation -Further recommendations forthcoming per surgeon Physician Budget Engineer note has been reviewed by physician. Signing provider agrees with the documented findings, assessment, and plan of care. Past Medical History Past Medical History: Liver Disease Additional Past Medical History / Comment(s): some esophageal varices, gallstones kidney stones History of Any Multi-Drug Resistant Organisms: None Reported Past Surgical History: Tonsillectomy Past Anesthesia/Blood Transfusion Reactions: No Reported Reaction Past Psychological History: Anxiety, Depression Smoking Status: Current every day smoker, Vaper Past Alcohol Use History: Daily, Heavy Past Drug Use History: Marijuana Medications and Allergies Home Medications Medication Instructions Recorded Confirmed Type Pantoprazole [Protonix] 40 mg PO DAILY 01/23/22 09/02/22 History ursodioL [Ursodiol] 300 mg PO DAILY 01/23/22 09/02/22 History Citalopram Hydrobromide [CeleXA] 10 mg PO DAILY 02/05/22 09/02/22 History Allergies Allergy/AdvReac Type Severity Reaction Status Date / Time No Known Allergies Allergy Verified 09/02/22 10:42 Surgical - Exam Vital Signs Temp Pulse Resp BP Pulse Ox 98.3 F 133 H 18 140/83 95 09/02/22 01:12 09/02/22 01:12 09/02/22 01:12 09/02/22 01:12 09/02/22 01:12 Results - Labs 09/03/22 08:04 09/04/22 07:58 Abnormal Lab Results - Last 24 Hours (Table) 09/04/22 Range/Units 07:58 Chloride 108 H (98-107) mmol/L Calcium 7.6 L (8.4-10.2) mg/dL Total Bilirubin 2.6 H (0.2-1.3) mg/dL AST 80 H (14-36) U/L ALT 50 H (4-34) U/L Total Protein 5.8 L (6.3-8.2) g/dL Albumin 2.6 L (3.5-5.0) g/dL Diabetes panel 09/04/22 Range/Units 07:58 Sodium 138 (137-145) mmol/L Potassium 3.8 (3.5-5.1) mmol/L Chloride 108 H (98-107) mmol/L Carbon Dioxide 26 (22-30) mmol/L BUN 8 (7-17) mg/dL Creatinine 0.54 (0.52-1.04) mg/dL Glucose 81 (74-99) mg/dL Calcium 7.6 L (8.4-10.2) mg/dL AST 80 H (14-36) U/L ALT 50 H (4-34) U/L Alkaline Phosphatase 99 (38-126) U/L Total Protein 5.8 L (6.3-8.2) g/dL Albumin 2.6 L (3.5-5.0) g/dL Calcium panel 09/04/22 Range/Units 07:58 Calcium 7.6 L (8.4-10.2) mg/dL Albumin 2.6 L (3.5-5.0) g/dL Pituitary panel 09/04/22 Range/Units 07:58 Sodium 138 (137-145) mmol/L Potassium 3.8 (3.5-5.1) mmol/L Chloride 108 H (98-107) mmol/L Carbon Dioxide 26 (22-30) mmol/L BUN 8 (7-17) mg/dL Creatinine 0.54 (0.52-1.04) mg/dL Glucose 81 (74-99) mg/dL Calcium 7.6 L (8.4-10.2) mg/dL Adrenal panel 09/04/22 Range/Units 07:58 Sodium 138 (137-145) mmol/L Potassium 3.8 (3.5-5.1) mmol/L Chloride 108 H (98-107) mmol/L Carbon Dioxide 26 (22-30) mmol/L BUN 8 (7-17) mg/dL Creatinine 0.54 (0.52-1.04) mg/dL Glucose 81 (74-99) mg/dL Calcium 7.6 L (8.4-10.2) mg/dL Total Bilirubin 2.6 H (0.2-1.3) mg/dL AST 80 H (14-36) U/L ALT 50 H (4-34) U/L Alkaline Phosphatase 99 (38-126) U/L Total Protein 5.8 L (6.3-8.2) g/dL Albumin 2.6 L (3.5-5.0) g/dL
--- NOTE | 2022-09-04 14:21 | P.CN ---
Psychiatric Consult - . Consult date: 09/04/22 Consult:: 09/04/22 14:20 IDENTIFYING DATA: This patient is a employed, , 41-year-old female with significant history of liver cirrhosis and alcohol use disorder presented to our hospital on 09/02/2022 for alcohol detoxification. HISTORY OF PRESENT ILLNESS: The patient presented to the hospital on 09/02/2022 with a chief complaint of alcohol detoxification. The patient reported she was drinking 2 pints of liquor per night and prior to her presentation to the hospital drank 12 beers and 2 shots. Her last reported alcoholic beverage was 1 hour prior to arrival in the ED. The patient has a history of alcoholic liver cirrhosis. She endorsed significant depressive symptoms and requested psychiatric evaluation. Upon evaluation by this provider the patient reports she continues to experience significant issues regarding depression and anxiety. She reports she has been doing research and has found that her depression and anxiety symptoms worsen 2 weeks prior to her having her period. She reports she was doing "well" since she was last admitted in June but relapsed into alcohol use again a month after discharge. She reports that she has not followed up with any outpatient psychotherapy or psychiatric appointments. She states she has not been taking any campral. In regards to depressive symptoms, the patient reports crying episodes, feelings of hopelessness, poor sleep, low appetite, and elevated anxiety. She reports no suicidal or homicidal ideation, intention, and/or plan. She reports no auditory or visual hallucinations. She denies any paranoia or other delusions. The patient reports that she has been dealing with the same stressors that she was during her last admission. She reports that she continues to cope with the loss of her mother passing away when she was 16 as well as numerous tests and the family. She also reports that she has more recently had a few friends pass away. The patient understands that her primary issue is from her heavy alcohol use. PAST PSYCHIATRIC HISTORY: Patient has a a history of depression, anxiety, and alcohol use disorder. Patient reports that she is only taking Celexa. She reports that she was supposed to be on campral but cannot recall being prescribed this medication at home. Patient denies any previous psychiatric hospitalizations. Patient denies any psychiatric outpatient follow-up. Patient denies any history of suicide attempts in the past. PAST MEDICAL HISTORY: Past Medical History: Liver Disease Additional Past Medical History / Comment(s): some esophageal varices, gallst ones kidney stones History of Any Multi-Drug Resistant Organisms: None Reported Past Surgical History: Tonsillectomy Past Anesthesia/Blood Transfusion Reactions: No Reported Reaction Past Psychological History: Anxiety, Depression Smoking Status: Current every day smoker, Vaper Past Alcohol Use History: Daily, Heavy Past Drug Use History: Marijuana ALLERGIES: NO KNOWN DRUG ALLERGIES CHEMICAL DEPENDENCY HISTORY: Patient has been drinking up to 2 pints of liquor per night for the past month. She reports daily tobacco use. She reports occasional marijuana use in the form of edibles. She denies any illicit drug use. FAMILY PSYCHIATRIC/SUBSTANCE USE HISTORY: The patient reports that her brother has depression. She reports that her father was an alcoholic. SOCIAL HISTORY: Patient was born and raised in [facility]. She is currently to her Maurilio for 26 years. They have 5 children together with the youngest being 10 years old and the oldest being 24. She is currently emp loyed as a hairdresser. She reports Gnosticism dale. She denies any history of legal problems or issues. MENTAL STATUS EXAM: General Appearance: Patient appears to be stated age is alert, pleasant, and cooperative. Patient appears to have fair hygiene and grooming wearing hospital gown with fair eye contact. Behavior: Patient is calmly seated upright in bed without any agitated behavior. Speech: Patient's speech is fluent and nonpressured. Mood/Affect: Patient reports their mood is "depressed", affect is congruent and at times appropriate tearful. Suicidality/Homicidality: Patient denies having any suicidal or homicidal ideation intent or plan. Perceptions: Patient denies any visual hallucinations and denies any auditory hallucinations Though content/process: There is no evidence of any delusional thought content and thought process is linear and goal-directed. Memory and concentration: AOX3, grossly intact for the purposes of this session. Can spell "WORLD" backwards Judgment and insight: Fair Vital Signs Temp 97.9 F 09/04/22 08:00 Pulse 72 09/04/22 12:00 Resp 18 09/04/22 12:00 BP 104/56 09/04/22 12:00 Pulse Ox 97 09/04/22 12:00 FiO2 Intake & Output 09/03/22 09/04/22 09/04/22 18:59 06:59 18:59 Intake Total 240 510 480 Balance 240 510 480 Intake: Intake, IV Titration 150 Amount Sodium Chloride 0.9% 1, 150 000 ml @ 75 mls/hr IV . [id number] [facility] Rx#:[id number] Oral 240 360 480 Other: # Voids 3 2 1 Laboratory Results WBC 3.0 k/uL (3.8-10.6) L 09/03/22 08:04 RBC 3.48 m/uL (3.80-5.40) L 09/03/22 08:04 Hgb 8.9 gm/dL (11.4-16.0) L 09/03/22 08:04 Hct 28.3 % (34.0-46.0) L 09/03/22 08:04 MCV 81.4 fL (80.0-100.0) 09/03/22 08:04 MCH 25.7 pg (25.0-35.0) 09/03/22 08:04 MCHC 31.5 g/dL (31.0-37.0) 09/03/22 08:04 RDW 19.2 % (11.5-15.5) H 09/03/22 08:04 Plt Count 82 k/uL (150-450) L 09/03/22 08:04 MPV 8.9 09/03/22 08:04 Neutrophils % 62 % 09/03/22 08:04 Lymphocytes % 24 % 09/03/22 08:04 Monocytes % 4 % 09/03/22 08:04 Eosinophils % 7 % 09/03/22 08:04 Basophils % 1 % 09/03/22 08:04 Neutrophils # 1.9 k/uL (1.3-7.7) 09/03/22 08:04 Lymphocytes # 0.7 k/uL (1.0-4.8) L 09/03/22 08:04 Monocytes # 0.1 k/uL (0-1.0) 09/03/22 08:04 Eosinophils # 0.2 k/uL (0-0.7) 09/03/22 08:04 Basophils # 0.0 k/uL (0-0.2) 09/03/22 08:04 Manual Slide Review Performed 09/03/22 08:04 Hypochromasia Moderate 09/03/22 08:04 Anisocytosis Slight 09/03/22 08:04 Microcytosis Slight 09/03/22 08:04 PT 14.3 sec (9.0-12.0) H 09/02/22 01:39 INR 1.4 (<1.2) H 09/02/22 01:39 Sodium 138 mmol/L (137-145) 09/04/22 07:58 Potassium 3.8 mmol/L (3.5-5.1) 09/04/22 07:58 Chloride 108 mmol/L (98-107) H 09/04/22 07:58 Carbon Dioxide 26 mmol/L (22-30) 09/04/22 07:58 Anion Gap 4 mmol/L 09/04/22 07:58 BUN 8 mg/dL (7-17) 09/04/22 07:58 Creatinine 0.54 mg/dL (0.52-1.04) 09/04/22 07:58 Est GFR (CKD-EPI)AfAm >90 (>60 ml/min/1.73 sqM) 09/04/22 07:58 Est GFR (CKD-EPI)NonAf >90 (>60 ml/min/1.73 sqM) 09/04/22 07:58 Glucose 81 mg/dL (74-99) 09/04/22 07:58 Calcium 7.6 mg/dL (8.4-10.2) L 09/04/22 07:58 Phosphorus 3.5 mg/dL (2.5-4.5) 09/02/22 01:39 Magnesium 1.7 mg/dL (1.6-2.3) 09/03/22 08:04 Total Bilirubin 2.6 mg/dL (0.2-1.3) H 09/04/22 07:58 AST 80 U/L (14-36) H 09/04/22 07:58 ALT 50 U/L (4-34) H 09/04/22 07:58 Alkaline Phosphatase 99 U/L (38-126) 09/04/22 07:58 Total Protein 5.8 g/dL (6.3-8.2) L 09/04/22 07:58 Albumin 2.6 g/dL (3.5-5.0) L 09/04/22 07:58 Amylase 68 U/L (30-110) 09/02/22 01:39 Lipase 218 U/L (23-300) 09/02/22 01:39 Urine Color Light Yellow 09/02/22 01:39 Urine Appearance Clear (Clear) 09/02/22 01:39 Urine pH 5.5 (5.0-8.0) 09/02/22 01:39 Ur Specific Proctor 1.001 (1.001-1.035) 09/02/22 01:39 Urine Protein Negative (Negative) 09/02/22 01:39 Urine Glucose (UA) Negative (Negative) 09/02/22 01:39 Urine Ketones Negative (Negative) 09/02/22 01:39 Urine Blood Negative (Negative) 09/02/22 01:39 Urine Nitrite Negative (Negative) 09/02/22 01:39 Urine Bilirubin Negative (Negative) 09/02/22 01:39 Urine Urobilinogen <2.0 mg/dL (<2.0) 09/02/22 01:39 Ur Leukocyte Esterase Negative (Negative) 09/02/22 01:39 Salicylates <1.0 mg/dL 09/02/22 03:02 Urine Opiates Screen Not Detected (NotDetected) 09/02/22 01:39 Ur Oxycodone Screen Not Detected (NotDetected) 09/02/22 01:39 Urine Methadone Screen Not Detected (NotDetected) 09/02/22 01:39 Ur Propoxyphene Screen Not Detected (NotDetected) 09/02/22 01:39 Acetaminophen <10.0 ug/mL 09/02/22 03:02 Ur Barbiturates Screen Not Detected (NotDetected) 09/02/22 01:39 U Tricyclic Antidepress Not Detected (NotDetected) 09/02/22 01:39 Ur Phencyclidine Scrn Not Detected (NotDetected) 09/02/22 01:39 Ur Amphetamines Screen Not Detected (NotDetected) 09/02/22 01:39 U Methamphetamines Scrn Not Detected (NotDetected) 09/02/22 01:39 U Benzodiazepines Scrn Not Detected (NotDetected) 09/02/22 01:39 Urine Cocaine Screen Not Detected (NotDetected) 09/02/22 01:39 U Marijuana (THC) Screen Detected (NotDetected) H 09/02/22 01:39 IMPRESSIONS: Major depressive disorder, recurrent, moderate, with anxious features Alcohol use disorder Cannabis abuse PLAN: -Continue your medical management for alcohol detoxification. -At this time patient DOES NOT meet criteria for inpatient psychiatric admission. Patient is not presenting with imminent risk of harm to self or others. She is not overtly manic or psychotic. Patient has numerous protective factors against suicide including supportive family, duty to children, quaker beliefs against suicide, and no prior attempts at suicide. Risk factor is her alcohol use disorder. -Would recommend the following medication changes/additions: We'll discontinue Celexa and start Effexor XR 75 mg at bedtime for management of anxiety/depression We will restart Campral 666 mg by mouth 3 times a day for alcohol cessation We will start Trazodone 100 mg by mouth at bedtime for insomnia -Approximately 20 minutes were spent providing patient with motivational interviewing to address alcohol use disorder -Recommend case management to set up appropriate outpatient appointments for outpatient psychotherapy/psychiatry appointments. Patient would like to go to Alcoholics Anonymous as well. -Patient is cleared psychiatrically for discharge. Psychiatry will follow loosely should the patient continued to be admitted on the medical floor. 09/04/22 14:21 09/04/22 14:21
--- NOTE | 2022-09-04 15:39 | US ---
EXAMINATION TYPE: US gallbladder DATE OF EXAM: 09/04/2022 COMPARISON: NONE CLINICAL HISTORY: elevated LFTs, pain after eating. Cirrhosis pain gallstones. TECHNIQUE: Multiple sonographic images of the right upper quadrant are obtained. FINDINGS: EXAM MEASUREMENTS: Liver Length: 14.5 cm Gallbladder Wall: .2 cm CBD: .5 cm Right Kidney: 10.9 x 3.8 x 4.7 cm BODY COVERER NOTES: Pancreas: Tail obscured by overlying bowel gas Liver: Increased attenuation Gallbladder: Multiple stones seen. Evidence for sonographic Murrell's sign: no CBD: wnl Right Kidney: No hydronephrosis or masses seen IMPRESSION: Cholelithiasis. Nonspecific pattern of liver can be associated with hepatic steatosis or hepatocellular disease inclu ding hepatitis correlate clinically.
[2022-09-04] MEDS: ACAMPROSATE CALCIUM 333 MG TABLET.DR PO SCH ×2 (18:16→22:33)
[2022-09-04] MEDS: SODIUM CHLORIDE 0.9% 1,000 ML IV SCH ×2 (19:32→22:34)
[2022-09-04] MEDS: VENLAFAXINE HCL ER 75 MG CAP PO SCH (20:21)
[2022-09-04] MEDS: traZODone HCL 100 MG TAB PO SCH (20:21)
--- NOTE | 2022-09-04 21:44 | P.PN ---
Subjective Progress Note Date: 09/04/22 Patient is a pleasant 41-year-old female who drinks 2 pints of alcohol every single day came in with intention to quit alcohol and help with withdrawals. Patient last drink was last night. Patient was in rehab in the past. Patient does have history of depression wishing to see a psychiatrist. Patient drug screen is positive for marijuana. 09/03/2022 Patient evaluated today resting in bed with family at bedside. No acute events overnight. Reports tremors are gone. Decreased appetite has not been tolerating oral intake did have an episodes of emesis last night and today. Protonix changed to IVP. Patient will be taken off the IV ativan has require it 2 times in the last 24 hours and making her drowsy. Changed to oral librium with plans to taper on discharge. Patient does not feel ready to go home today. Monitor overnight. 09/04/2022 Patient evaluated today resting in bed. Alcohol withdrawal symptoms have resolved. Patient overall feeling better. Taken off the IV ativan and started on oral librium. Patient reports sleeping well and felt less anxious after taking the librium. She has been maintained on celexa for many years and doesn't feel it is working any longer to control her anxiety and feels like she is having increased anxiety. Patient will be seen by psychiatry in consultation today. Additionally, patient reports episode of right lower quadrant abdominal pain and nausea after eating dinner last night. She has had this before and has history of gallstones requiring hospitalization. LFT's are elevated likely from alcoholic hepatitis and known liver cirrhosis. Abdominal ultrasound ordered. General surgery is also consulted for further evaluation. Review of Systems Constitutional: Reports fatigue, denied any fever. Cardio vascular: denied any chest pain, palpitations Gastrointestinal: No diarrhea, reports nausea and RLQ abdominal pain after eating Pulmonary: Denied any shortness of breath cough Neurologic denied any new focal deficits All inpatient medications were reviewed and appropriate changes in these medications as dictated in the interval history and assessment and plan. PHYSICAL EXAMINATION: GENERAL: The patient is alert and oriented x3, not in any acute distress. Well developed, well nourished. HEENT: Pupils are round and equally reacting to light. EOMI. No scleral icterus. No conjunctival pallor. Normocephalic, atraumatic. No pharyngeal erythema. No thyromegaly. CARDIOVASCULAR: S1 and S2 present. No murmurs, rubs, or gallops. PULMONARY: Chest is clear to auscultation, no wheezing or crackles. ABDOMEN: Soft, nontender, nondistended, normoactive bowel sounds. No palpable organomegaly. MUSCULOSKELETAL: No joint swelling or deformity. EXTREMITIES: No cyanosis, clubbing, or pedal edema. NEUROLOGICAL: Gross neurological examination did not reveal any focal deficits. SKIN: No rashes. Assessment and plan -Alcohol abuse, physical dependence patient has been transitioned to oral librium and alcohol withdrawal symptoms have improved -Nicotine use: Counseling was provided -Depression patient will be resumed on Celexa but this is not going to be effective as long as she continues to drink -Anxiety uncontrolled with celexa psychiatry consultation -History of gallstones and reports of nausea/pain after eating -Marijuana use: Counseling was provided -Hypokalemia improved. -Alcoholic hepatitis expected to improve with cessation of alcohol DVT prophylaxis: Lovenox GI prophylaxis: Protonix Full Code Continue to monitor overnight and moniter liver enzymes. Continue oral librium and plans to taper on discharge. General surgery consultation for further evaluation of gallstones, HIDA scan has been ordered. Psychiatry consultation. Further recommendations pending. The impression and plan of care has been dictated by Ligia Valenzuela Nurse Practitioner as directed. Dr. Rian MD I have performed a history and physical examination and medical decision making of this patient, discussed the same with the dictator, and agree with the dictators assessment and plan as written, documented as a scribe. Based on total visit time, I have performed more than 50% of this visit. Objective - Vital Signs Vital signs: Vital Signs Temp 97.9 F 09/04/22 08:00 Pulse 72 09/04/22 12:00 Resp 18 09/04/22 12:00 BP 104/56 09/04/22 12:00 Pulse Ox 97 09/04/22 12:00 FiO2 Intake & Output 09/03/22 09/04/22 09/04/22 18:59 06:59 18:59 Intake Total 240 510 480 Balance 240 510 480 Intake: Intake, IV Titration 150 Amount Sodium Chloride 0.9% 1, 150 000 ml @ 75 mls/hr IV . [id number] [place] Rx#:[id number] Oral 240 360 480 Other: # Voids 3 2 1 - Labs CBC & Chem 7: 09/03/22 08:04 09/04/22 07:58 Labs: Abnormal Lab Results - Last 24 Hours (Table) 09/04/22 Range/Units 07:58 Chloride 108 H (98-107) mmol/L Calcium 7.6 L (8.4-10.2) mg/dL Total Bilirubin 2.6 H (0.2-1.3) mg/dL AST 80 H (14-36) U/L ALT 50 H (4-34) U/L Total Protein 5.8 L (6.3-8.2) g/dL Albumin 2.6 L (3.5-5.0) g/dL Assessment and Plan Time with Patient: Less than 30
[2022-09-05] MEDS: ACAMPROSATE CALCIUM 333 MG TABLET.DR PO SCH ×3 (11:12→19:40)
[2022-09-05] MEDS: PANTOPRAZOLE 40 MG/10 ML VIAL IVP SCH ×2 (11:14→19:40)
[2022-09-05] MEDS: THIAMINE 100 MG TAB PO SCH (11:15)
[2022-09-05] MEDS: ursodioL 300 MG CAP PO SCH (11:16)
--- NOTE | 2022-09-05 11:55 | NM ---
Nuclear medicine hepatobiliary scan. HISTORY: Pain. COMPARISON: Ultrasound 09/04/2022 DOSAGE: The patient received 8 0z Ensure plus and 5.1 mCi of Technetium 99m Choletec. FINDINGS: There is normal hepatic extraction. The gallbladder is seen by 90 minutes. There is bilia ry to bowel clearance by 30 minutes. Ejection fraction not performed. IMPRESSION: 1. Delayed filling of the gallbladder seen in 90 minutes can be associated with cholecystitis. Correl ate clinically
[2022-09-05 12:27] LABS: Anisocytosis Slight; Basophils % (A) 1 %; Eosinophils # (A) 0.2 k/uL (0-0.7); Eosinophils % (A) 6 %; HGB 9.8 gm/dL (11.4-16.0); Hypochromasia Moderate; Lymphocytes # (A) 0.9 k/uL (1.0-4.8); Lymphocytes % (A) 26 %; MCH 25.8 pg (25.0-35.0); MCHC 31.6 g/dL (31.0-37.0); MCV 81.5 fL (80.0-100.0); Mean Platelet Volume 9.6; Microcytosis Slight; Monocytes # (A) 0.1 k/uL (0-1.0); Monocytes % (A) 3 %; Neutrophils # (A) 2.1 k/uL (1.3-7.7); Neutrophils % (A) 61 %; Poikilocytosis Slight; RDW 19.4 % (11.5-15.5); WBC 3.5 k/uL (3.8-10.6)
[2022-09-05 12:29] LABS: ALT 49 U/L (4-34); AST 67 U/L (14-36); African American GFR (CKD) >90 (>60 ml/min/1.73 sqM); Albumin 2.9 g/dL (3.5-5.0); Alkaline Phosphatase 104 U/L (38-126); Anion Gap 7 mmol/L; Blood Urea Nitrogen 7 mg/dL (7-17); Calcium 8.1 mg/dL (8.4-10.2); Carbon Dioxide 24 mmol/L (22-30); Chloride 108 mmol/L (98-107); Glucose 73 mg/dL (74-99); Non-African American GFR(CKD) >90 (>60 ml/min/1.73 sqM); Potassium 3.7 mmol/L (3.5-5.1); Sodium 139 mmol/L (137-145); Total Bilirubin 3.2 mg/dL (0.2-1.3); Total Protein 6.3 g/dL (6.3-8.2)
[2022-09-05 12:31] LABS: Platelet Count 83 k/uL (150-450)
--- NOTE | 2022-09-05 13:07 | P.PN ---
Subjective Progress Note Date: 09/05/22 CHIEF COMPLAINT: Abdominal pain HISTORY OF PRESENT ILLNESS: This is a 41-year-old female with a known history of gallstones and alcoholism. Patient's gallbladder ultrasound had shown cholelithiasis. Nonspecific pattern of liver can be associated with hepatic steatosis or hepatocellular disease including hepatitis. HIDA scan showed delayed filling of the gallbladder seen in 90 minutes can be associated with cholecystitis. Patient reports that she is feeling better today. Afebrile. WBC is 3.5 he should be 9.8 platelets are 83 sodium 139 potassium 3.7 creatinine 0.5 for total bilirubin is up from 2.6-3.2 LFTs trending down. AST 67 ALT 49 alk phos 104 PHYSICAL EXAM: VITAL SIGNS: Reviewed GENERAL: Well-developed in no acute distress. HEENT: No sclera icterus. Extraocular movements grossly intact. Moist buccal mucosa. Head is atraumatic, normocephalic. Hears conversational speech. No nasal drainage. NECK: Supple without lymphadenopathy. CHEST: Non-labored respirations and equal bilateral excursions. CARDIOVASCULAR: Palpable 2+ radial pulses. ABDOMEN: Soft. Nondistended. MUSCULOSKELETAL: No clubbing or cyanosis. NEUROLOGIC: No focal or lateralizing signs. Cranial nerves II through XII grossly intact. PSYCH: Appropriate affect. Alert and oriented to person, place and time. SKIN: Well perfused. Good skin turgor. ASSESSMENT: 1. Right upper quadrant abdominal pain 2. Cholelithiasis 3. Possible choledocholithiasis with evidence of Elevated LFTs and total bili patel 4. Daily alcohol use 5. Drug screen positive for marijuana 7. Anemia 8. Thrombocytopenia PLAN: -Recommend that patient be transferred to tertiary care center with GI service for possible ERCP. There is no GI service available at this institution this week. -Continue low-fat diet -Continue supportive care -Counseled on alcohol cessation Physician Minister Of Religion note has been reviewed by physician. Signing provider agrees with the documented findings, assessment, and plan of care. Objective - Vital Signs Vital signs: Vital Signs Temp 97.5 F L 09/05/22 12:08 Pulse 64 09/05/22 12:08 Resp 16 09/05/22 12:08 BP 100/62 09/05/22 12:08 Pulse Ox 97 09/05/22 12:08 FiO2 Intake & Output 09/04/22 09/05/2223 18:59 06:59 18:59 Intake Total 598 Balance 598 Intake: Oral 598 Other: Voiding Method Toilet Toilet # Voids 1 2 - Labs CBC & Chem 7: 09/05/22 11:35 09/05/22 11:35 Labs: Abnormal Lab Results - Last 24 Hours (Table) 09/05/22 09/05/22 Range/Units 11:35 11:35 WBC 3.5 L (3.8-10.6) k/uL Hgb 9.8 L (11.4-16.0) gm/dL Hct 31.0 L (34.0-46.0) % RDW 19.4 H (11.5-15.5) % Plt Count 83 L (150-450) k/uL Lymphocytes # 0.9 L (1.0-4.8) k/uL Chloride 108 H (98-107) mmol/L Glucose 73 L (74-99) mg/dL Calcium 8.1 L (8.4-10.2) mg/dL Total Bilirubin 3.2 H (0.2-1.3) mg/dL AST 67 H (14-36) U/L ALT 49 H (4-34) U/L Albumin 2.9 L (3.5-5.0) g/dL
--- NOTE | 2022-09-05 14:07 | P.PN ---
Progress Note - Text Progress Note Date: 09/05/22 Interval History: Patient was seen at bedside with her parents present. The patient stated that it was okay for her parents to be present for the psychiatric interview. Currently, the patient is not reporting any suicidal or homicidal ideation, intention, and/or plan. She is not reporting any significant symptoms of depression and remains future and goal oriented. She understands that she will be undergoing surgery. She does express elevated anxiety however insightfully states that this is normal considering upcoming surgery as well as coming off alcohol. She reports that she was able to sleep very well last night with the addition of trazodone. She is not endorsing any auditory or visual hallucinations. She denies any paranoia or other delusions. She reports no significant side effects from medications. Mental Status Exam: General Appearance: Patient appears to be stated age is alert, directable, and cooperative. Behavior: Patient is calmly seated without any agitated behavior. Speech: Patient's speech is fluent and nonpressured. Mood/Affect: Mood is improving mildly, affect is congruent and constricted. Suicidality/Homicidality: Patient denies having any suicidal or homicidal ideation intent or plan. Perceptions: Patient denies any visual hallucinations and denies any auditory hallucinations Though content/process: There is no evidence of any delusional thought content and thought process is linear and goal-directed. Memory and concentration: AOX3, grossly intact for the purposes of this session Judgment and insight: Improved Vital Signs Temp 97.5 F L 09/05/22 12:08 Pulse 64 09/05/22 12:08 Resp 16 09/05/22 12:08 BP 100/62 09/05/22 12:08 Pulse Ox 97 09/05/22 12:08 FiO2 Intake & Output 09/04/22 09/05/22 09/05/22 18:59 06:59 18:59 Intake Total 598 Balance 598 Intake: Oral 598 Other: Voiding Method Toilet Toilet # Voids 1 2 # Bowel Movements 0 Laboratory Results - Last 24 Hours 09/05/22 09/05/22 09/05/22 11:35 11:35 13:19 WBC 3.5 L RBC 3.80 Hgb 9.8 L Hct 31.0 L MCV 81.5 MCH 25.8 MCHC 31.6 RDW 19.4 H Plt Count 83 L MPV 9.6 Neutrophils % 61 Lymphocytes % 26 Monocytes % 3 Eosinophils % 6 Basophils % 1 Neutrophils # 2.1 Lymphocytes # 0.9 L Monocytes # 0.1 Eosinophils # 0.2 Basophils # 0.0 Hypochromasia Moderate Poikilocytosis Slight Anisocytosis Slight Microcytosis Slight Sodium 139 Potassium 3.7 Chloride 108 H Carbon Dioxide 24 Anion Gap 7 BUN 7 Creatinine 0.54 Est GFR (CKD-EPI)AfAm >90 Est GFR (CKD-EPI)NonAf >90 Glucose 73 L Calcium 8.1 L Total Bilirubin 3.2 H AST 67 H ALT 49 H Alkaline Phosphatase 104 Total Protein 6.3 Albumin 2.9 L Coronavirus (PCR) Not Detected Assessment Major depressive disorder, recurrent, moderate, with anxious features Alcohol use disorder Cannabis abuse Plan: -Continue your medical management for alcohol detoxification. -At this time patient DOES NOT meet criteria for inpatient psychiatric admission. Patient is not presenting with imminent risk of harm to self or others. She is not overtly manic or psychotic. Patient has numerous protective factors against suicide including supportive family, duty to children, confucianist beliefs against suicide, and no prior attempts at suicide. Risk factor is her alcohol use disorder. -Would recommend the following medication changes/additions: Continue Effexor XR 75 mg at bedtime for management of anxiety/depression Continue Campral 666 mg by mouth 3 times a day for alcohol cessation Continue Trazodone 100 mg by mouth at bedtime for insomnia -Approximately 10 minutes were spent providing patient with motivational interviewing to address alcohol use disorder -Recommend case management to set up appropriate outpatient appointments for outpatient psychotherapy/psychiatry appointments. Patient would like to go to Alcoholics Anonymous as well. -Patient is cleared psychiatrically for discharge. Psychiatry will sign off at this time. Please call us with any questions or concerns or reconsult us if necessary.
[2022-09-05] MEDS: SODIUM CHLORIDE 0.9% 1,000 ML IV SCH (14:20)
--- NOTE | 2022-09-05 16:33 | P.PN ---
Subjective Progress Note Date: 09/05/22 Patient is a pleasant 41-year-old female who drinks 2 pints of alcohol every single day came in with intention to quit alcohol and help with withdrawals. Patient last drink was last night. Patient was in rehab in the past. Patient does have history of depression wishing to see a psychiatrist. Patient drug screen is positive for marijuana. 09/03/2022 Patient evaluated today resting in bed with family at bedside. No acute events overnight. Reports tremors are gone. Decreased appetite has not been tolerating oral intake did have an episodes of emesis last night and today. Protonix changed to IVP. Patient will be taken off the IV ativan has require it 2 times in the last 24 hours and making her drowsy. Changed to oral librium with plans to taper on discharge. Patient does not feel ready to go home today. Monitor overnight. 09/04/2022 Patient evaluated today resting in bed. Alcohol withdrawal symptoms have resolved. Patient overall feeling better. Taken off the IV ativan and started on oral librium. Patient reports sleeping well and felt less anxious after taking the librium. She has been maintained on celexa for many years and doesn't feel it is working any longer to control her anxiety and feels like she is having increased anxiety. Patient will be seen by psychiatry in consultation today. Additionally, patient reports episode of right lower quadrant abdominal pain and nausea after eating dinner last night. She has had this before and has history of gallstones requiring hospitalization. LFT's are elevated likely from alcoholic hepatitis and known liver cirrhosis. Abdominal ultrasound ordered. General surgery is also consulted for further evaluation. 09/05/2022 Patient is evaluated today sitting up in bed with family at bedside. Patient had HIDA scan completed today showing possible cholecystitis with delayed filling of the gallbladder. Psychiatry has evaluated the patient and patient has been started on campral TID, trazadone and effexor. General surgery is recommending transfer to tertiary care for GI evaluation and ERCP for possible choledocholelisthiasis. Transfer initiated to [facility] where patient has undergone work up in the past. Dr. Kearney has accepted the patient. Pending bed at this time. Patient has been started on IV unasyn. Review of Systems Constitutional: Reports fatigue, denied any fever. Cardio vascular: denied any chest pain, palpitations Gastrointestinal: No diarrhea, reports nausea and RLQ abdominal pain after eating Pulmonary: Denied any shortness of breath cough Neurologic denied any new focal deficits All inpatient medications were reviewed and appropriate changes in these medications as dictated in the interval history and assessment and plan. PHYSICAL EXAMINATION: GENERAL: The patient is alert and oriented x3, not in any acute distress. Well developed, well nourished. HEENT: Pupils are round and equally reacting to light. EOMI. No scleral icterus. No conjunctival pallor. Normocephalic, atraumatic. No pharyngeal erythema. No thyromegaly. CARDIOVASCULAR: S1 and S2 present. No murmurs, rubs, or gallops. PULMONARY: Chest is clear to auscultation, no wheezing or crackles. ABDOMEN: Soft, nontender, nondistended, normoactive bowel sounds. No palpable organomegaly. MUSCULOSKELETAL: No joint swelling or deformity. EXTREMITIES: No cyanosis, clubbing, or pedal edema. NEUROLOGICAL: Gross neurological examination did not reveal any focal deficits. SKIN: No rashes. Assessment and plan -Alcohol abuse and early alcohol withdrawal resolved -Alcoholic hepatitis expected to improve with cessation of alcohol -History of liver cirrhosis -Depression -Anxiety -History of gallstones and RUQ abdominal pain -Possible choledocholelisthiasis elevate LFTs and total bilirubin -Thrombocytopenia, anemia -Marijuana use: Counseling was provided -Nicotine use: Counseling was provided Full Code Plan Transfer has been initiated to tertiary care center with accepting physician at [facility]. Patient requires GI services which are unavailable at this facility at this time. Patient and family updated and patient is awaiting bed at this time likely tomorrow afternoon. Surgery and psychiatry following. More than 30 minutes have been spent on transfer and coordination of care. The impression and plan of care has been dictated by Nurse Rhett Pra ctitioner as directed. Dr. Rian MD I have performed a history and physical examination and medical decision making of this patient, discussed the same with the dictator, and agree with the dictat ors assessment and plan as written, documented as a scribe. Based on total visit time, I have performed more than 50% of this visit. Objective - Vital Signs Vital signs: Vital Signs Temp 97.5 F L 09/05/22 14:00 Pulse 67 09/05/22 14:00 Resp 17 09/05/22 14:00 BP 101/62 09/05/22 14:00 Pulse Ox 95 09/05/22 14:00 FiO2 Intake & Output 09/04/22 09/05/22 09/05/22 18:59 06:59 18:59 Intake Total 598 Balance 598 Intake: Oral 598 Other: Voiding Method Toilet Toilet # Voids 1 2 # Bowel Movements 0 - Labs CBC & Chem 7: 09/05/22 11:35 09/05/22 11:35 Labs: Abnormal Lab Results - Last 24 Hours (Table) 09/05/22 09/05/22 Range/Units 11:35 11:35 WBC 3.5 L (3.8-10.6) k/uL Hgb 9.8 L (11.4-16.0) gm/dL Hct 31.0 L (34.0-46.0) % RDW 19.4 H (11.5-15.5) % Plt Count 83 L (150-450) k/uL Lymphocytes # 0.9 L (1.0-4.8) k/uL Chloride 108 H (98-107) mmol/L Glucose 73 L (74-99) mg/dL Calcium 8.1 L (8.4-10.2) mg/dL Total Bilirubin 3.2 H (0.2-1.3) mg/dL AST 67 H (14-36) U/L ALT 49 H (4-34) U/L Albumin 2.9 L (3.5-5.0) g/dL Assessment and Plan Time with Patient: Greater than 30
[2022-09-05] MEDS: AMPICILLIN-SULBACTAM 3 GM in SODIUM CHLORIDE 0.9% 100 ML IVPB SCH (17:04)
[2022-09-05] MEDS: VENLAFAXINE HCL ER 75 MG CAP PO SCH (19:40)
[2022-09-05] MEDS: traZODone HCL 100 MG TAB PO SCH (19:40)
[2022-09-06] MEDS: AMPICILLIN-SULBACTAM 3 GM in SODIUM CHLORIDE 0.9% 100 ML IVPB SCH ×3 (00:36→15:24)
[2022-09-06] MEDS: SODIUM CHLORIDE 0.9% 1,000 ML IV SCH ×2 (06:46→17:23)
[2022-09-06] MEDS: ursodioL 300 MG CAP PO SCH (08:26)
[2022-09-06] MEDS: THIAMINE 100 MG TAB PO SCH (08:26)
[2022-09-06] MEDS: ACAMPROSATE CALCIUM 333 MG TABLET.DR PO SCH ×3 (08:26→19:42)
[2022-09-06] MEDS: PANTOPRAZOLE 40 MG/10 ML VIAL IVP SCH ×2 (08:26→19:41)
[2022-09-06 09:26] LABS: ALT 38 U/L (4-34); AST 49 U/L (14-36); African American GFR (CKD) >90 (>60 ml/min/1.73 sqM); Albumin 2.5 g/dL (3.5-5.0); Alkaline Phosphatase 84 U/L (38-126); Anion Gap 6 mmol/L; Blood Urea Nitrogen 8 mg/dL (7-17); Calcium 7.6 mg/dL (8.4-10.2); Carbon Dioxide 25 mmol/L (22-30); Chloride 106 mmol/L (98-107); Glucose 96 mg/dL (74-99); Non-African American GFR(CKD) >90 (>60 ml/min/1.73 sqM); Potassium 3.5 mmol/L (3.5-5.1); Sodium 137 mmol/L (137-145); Total Bilirubin 2.4 mg/dL (0.2-1.3); Total Protein 5.7 g/dL (6.3-8.2)
--- NOTE | 2022-09-06 11:05 | P.PN ---
Subjective Progress Note Date: 09/06/22 CHIEF COMPLAINT: Abdominal pain HISTORY OF PRESENT ILLNESS: This is a 41-year-old female with a known history of gallstones and alcoholism. Patient's gallbladder ultrasound had shown cholelithiasis. Nonspecific pattern of liver can be associated with hepatic steatosis or hepatocellular disease including hepatitis. HIDA scan showed delayed filling of the gallbladder seen in 90 minutes can be associated with cholecystitis. Patient continues to feel better. She is tolerating a low-fat diet. Her pain has improved. She just reports some mild discomfort in the right upper quadrant. No nausea or vomiting. She is awaiting transfer to [facility] for possible choledocholithiasis. Patient reports that she is sleeping better with the adjustment of medications per psychiatry. Total bilirubin 3.2 down to 2.4 AST down to 49 ALT trending down to 38 PHYSICAL EXAM: VITAL SIGNS: Reviewed GENERAL: Well-developed in no acute distress. HEENT: No sclera icterus. Extraocular movements grossly intact. Moist buccal mucosa. Head is atraumatic, normocephalic. Hears conversational speech. No nasal drainage. NECK: Supple without lymphadenopathy. CHEST: Non-labored respirations and equal bilateral excursions. CARDIOVASCULAR: Palpable 2+ radial pulses. ABDOMEN: Soft. Nondistended. mild tenderness right upper quadrant with palpation MUSCULOSKELETAL: No clubbing or cyanosis. NEUROLOGIC: No focal or lateralizing signs. Cranial nerves II through XII grossly intact. PSYCH: Appropriate affect. Alert and oriented to person, place and time. SKIN: Well perfused. Good skin turgor. ASSESSMENT: 1. Right upper quadrant abdominal pain 2. Cholelithiasis 3. Possible choledocholithiasis with evidence of Elevated LFTs and total bilirubin 4. Daily alcohol use 5. Drug screen positive for marijuana 7. Anemia 8. Thrombocytopenia PLAN: -Recommend that patient be transferred to tertiary care center with GI service for possible ERCP. There is no GI service available at this institution this week. -Awaiting bed availability at [facility] -Continue low-fat diet -Continue supportive care -Counseled on alcohol cessation Physician Compugraph Operator note has been reviewed by physician. Signing provider agrees with the documented findings, assessment, and plan of care. Objective - Vital Signs Vital signs: Vital Signs Temp 96.5 F L 09/06/22 08:32 Pulse 81 09/06/22 08:32 Resp 17 09/06/22 08:32 BP 98/62 09/06/22 08:32 Pulse Ox 98 09/06/22 08:32 FiO2 Intake & Output 09/05/22 09/06/22 09/06/22 18:59 06:59 18:59 Intake Total 118 Balance 118 Intake: Oral 118 Other: Voiding Method Toilet Toilet Toilet # Voids 2 # Bowel Movements 0 - Labs CBC & Chem 7: 09/05/22 11:35 09/06/22 08:50 Labs: Abnormal Lab Results - Last 24 Hours (Table) 09/05/22 09/05/22 09/06/22 Range/Units 11:35 11:35 08:50 WBC 3.5 L (3.8-10.6) k/uL Hgb 9.8 L (11.4-16.0) gm/dL Hct 31.0 L (34.0-46.0) % RDW 19.4 H (11.5-15.5) % Plt Count 83 L (150-450) k/uL Lymphocytes # 0.9 L (1.0-4.8) k/uL Chloride 108 H (98-107) mmol/L Creatinine 0.51 L (0.52-1.04) mg/dL Glucose 73 L (74-99) mg/dL Calcium 8.1 L 7.6 L (8.4-10.2) mg/dL Total Bilirubin 3.2 H 2.4 H (0.2-1.3) mg/dL AST 67 H 49 H (14-36) U/L ALT 49 H 38 H (4-34) U/L Total Protein 5.7 L (6.3-8.2) g/dL Albumin 2.9 L 2.5 L (3.5-5.0) g/dL
--- NOTE | 2022-09-06 12:01 | P.DS ---
Providers Date of admission: 09/02/22 05:03 Attending physician: Kimberly Valdes Consults: 09/02/22 14:16 Consult Physician Routine Consulting Provider: Chris Moran Consult Reason/Comments: depression, patient request Do you want consulting provider notified?: Yes 09/04/22 12:02 Consult Physician Routine Consulting Provider: Aleksandra Aguilar Consult Reason/Comments: hx gallstones, pain after eating Do you want consulting provider notified?: Yes Primary care physician: Isaias Johnson Hospital Course: Final Diagnosis -Alcohol abuse and early alcohol withdrawal -Alcoholic hepatitis -Cholelisthiasis -Possible choledocholelisthiasis with elevated bilirubin -History of liver cirrhosis -Depression -Anemia/thrombocytopenia -Anxiety with reports of anxiety/panic attacks intermittently. -Marijuana use: Counseling was provided -Nicotine use: Counseling was provided Full Code Discharge Disposition Patient is stable for transfer which has been facilitated to [facility] and patient has been accepted by medicine Dr. Iraheta. Patient will have GI consultation and recommended to undergo ERCP. There are no GI services available this week at this facility for further evaluation. Surgery has recommending transfer for GI evaluation. Hospital Course Patient is a pleasant 41-year-old female who drinks 2 pints of alcohol every single day came in with intention to quit alcohol and help with withdrawals. Patient last drink was the night prior to admission. Patient has known history of alcoholic liver disease and has undergone work up in the past, states she follows with Dr. Mahnaz Jiménez at [facility]. Patient also his history of gallstones and anxiety. Patient was started on IV ativan CIWA protocol and has been since transitioned to oral librium with no further symptoms of alcohol withdrawal. Psychiatry has evaluated the patient and patient has been started on campral TID, trazadone and effexor. Patient was pending discharge when she experienced right lower quadrant abdominal pain and nausea after eating and general surgery consultation requested for further evaluation. Patients bilirubin elevated on admission trending up last current value 3.2. Patient underwent hepatobiliary NM scan and showing possible cholecystitis with delayed filling of the gallbladder. General surgery is recommending transfer to tertiary care for GI evaluation and ERCP for possible choledocholelisthiasis. Patient has been accepted at [facility] and tentative bed placement today. 09/06/2022 No acute events overnight. Patient is up ambulating in the room today. Patient has been accepted at [facility] and pending bed for transfer. Continues on IV unasyn at this time. Labs today showing sodium 137, potassium 3.5, BUN 8, creatinine 0.51, calcium 7.6. AST/ALT and alk phos are continuing to improve. Covid negative. Lungs are clear, S1 S2 auscultated. Temperature 96.5, heart rate 81, blood pressure 98/62, 98% room air. Thank you for allowing us to participate in the care of this patient. The impression and plan of care has been dictated by Ligia Valenzuela, Nurse Practitioner as directed. Dr. Rian MD I have performed a history and physical examination and medical decision making of this patient, discussed the same with the dictator, and agree with the dictators assessment and plan as written, documented as a scribe. Based on total visit time, I have performed more than 50% of this visit. Patient Condition at Discharge: Fair Plan - Discharge Summary New Discharge Prescriptions: No Action ursodioL [Ursodiol] 300 mg PO DAILY Citalopram Hydrobromide [CeleXA] 10 mg PO DAILY Pantoprazole [Protonix] 40 mg PO DAILY Discharge Medication List Pantoprazole [Protonix] 40 mg PO DAILY 01/23/22 [History] ursodioL [Ursodiol] 300 mg PO DAILY 01/23/22 [History] Citalopram Hydrobromide [CeleXA] 10 mg PO DAILY 02/05/22 [History] Follow up Appointment(s)/Referral(s): Isaias Johnson MD [Primary Care Provider] - 1-2 days Patient Instructions/Handouts: Low Fat Diet (DC) Discharge/Stand Alone Forms: AA Meetings [place], [facility] Resources, Outpatient Counseling, In Substance Abuse Facilities
[2022-09-06] MEDS ORDERED: SODIUM CHLORIDE 0.9% 1,000 ML IV ONE (12:22)
[2022-09-06] MEDS: VENLAFAXINE HCL ER 75 MG CAP PO SCH (19:42)
[2022-09-06 19:44] VITALS: BP 95/56; PULSE 70; RESP 19; TEMP 98.2
[2022-09-06] MEDS ORDERED: traZODone HCL 100 MG TAB PO SCH (21:00)
== END 2022-09-06 21:05 | disposition short-term general hospital (02) | DRG 775 ==
LOC: EC 01:08 → 3SCARD 05:03
PROVIDERS: ADMIT Hospitalist; ATTEND Hospitalist
DX: F10.239 Alcohol dependence with withdrawal, unspecified (principal); F10.229 Alcohol dependence with intoxication, unspecified; I85.10 Secondary esophageal varices without bleeding; D69.6 Thrombocytopenia, unspecified; K80.64 Calculus of gallbladder and bile duct with chronic cholecystitis without obstruction; F33.1 Major depressive disorder, recurrent, moderate; K70.30 Alcoholic cirrhosis of liver without ascites; Z20.822 Contact with and (suspected) exposure to COVID-19; Z28.310 Unvaccinated for COVID-19; K70.10 Alcoholic hepatitis without ascites; F41.0 Panic disorder [episodic paroxysmal anxiety]; F12.10 Cannabis abuse, uncomplicated; D64.9 Anemia, unspecified; E87.6 Hypokalemia; G89.29 Other chronic pain; Z79.899 Other long term (current) drug therapy; F17.290 Nicotine dependence, other tobacco product, uncomplicated; Z87.442 Personal history of urinary calculi; Z71.6 Tobacco abuse counseling; Z71.41 Alcohol abuse counseling and surveillance of alcoholic; Z71.51 Drug abuse counseling and surveillance of drug abuser
CPT/HCPCS: 36415; 71046; 76705; 78226; 80053; 80143; 80179; 80306; 81003; 82075; 82150; 83690; 83735; 84100; 85025; 85610; 87635; 93005; 96361; 96374; 96376; 99285

== ENCOUNTER 2022-10-15 20:35 | Emergency (ER) | payer OTHER ==
[2022-10-15 21:09] VITALS: RESP 15; TEMP 98.5
--- NOTE | 2022-10-15 21:27 | ED ---
Abdominal Pain HPI - General Stated Complaint: Gall Stones, Abdominal Pain Time Seen by Provider: 10/15/22 20:57 Source: patient, EMS Mode of arrival: EMS Limitations: no limitations - History of Present Illness Initial Comments: This is a 41-year-old woman with history of biliary colic and degree of chronic liver disease, who presents with right upper quadrant pain that she states feels like a flareup of biliary colic. The patient states she usually tries to control things through managing her diet and using a warm compress to the abdomen. She had been seen within the past month by the specialists that [facility] who told her they did not want to perform cholecystectomy due to her underlying liver disease. MD Complaint: abdominal pain Location: RUQ Radiation: back Migration to: no migration Severity: severe Quality: aching Consistency: constant Improves With: nothing Worsens With: eating Associated Symptoms: nausea, vomiting - Related Data Home Medications Medication Instructions Recorded Confirmed Pantoprazole [Protonix] 40 mg PO DAILY 01/23/22 10/24/22 ursodioL [Ursodiol] 300 mg PO BID 01/23/22 10/24/22 Famotidine 20 mg PO HS 10/15/22 10/24/22 Folic Acid 1 mg PO DAILY 10/15/22 10/24/22 Multivitamins, Thera [Multivitamin 1 tab PO DAILY 10/15/22 10/24/22 (formulary)] Ondansetron Odt [Zofran Odt] 8 mg PO TID PRN 10/15/22 10/24/22 busPIRone HCl [Buspar] 10 mg PO BID@0900,1700 10/15/22 10/24/22 methocarbamoL [Methocarbamol] 500 mg PO QID PRN 10/15/22 10/24/22 traZODone HCL [Desyrel] 100 mg PO HS 10/15/22 10/24/22 Previous Rx's Medication Instructions Recorded Thiamine [Vitamin B-1] 100 mg PO DAILY tab 09/06/22 Venlafaxine HCl ER [Effexor XR] 75 mg PO HS cap 09/06/22 Allergies Allergy/AdvReac Type Severity Reaction Status Date / Time ceftriaxone [From Rocephin] Allergy Rash/Hives Verified 10/24/22 15:40 Review of Systems ROS Statement: Those systems with pertinent positive or pertinent negative responses have been documented in the HPI. ROS Other: All systems not noted in ROS Statement are negative. Constitutional: Denies: fever, chills, weakness Respiratory: Denies: cough Cardiovascular: Denies: chest pain, palpitations, edema Gastrointestinal: Reports: abdominal pain, nausea, vomiting. Denies: diarrhea, constipation, melena, hematochezia Genitourinary: Denies: dysuria, frequency, hematuria Musculoskeletal: Denies: back pain Skin: Denies: rash Neurological: Denies: headache, weakness Past Medical History Past Medical History: Liver Disease Additional Past Medical History / Comment(s): some esophageal varices, gallston es kidney stones History of Any Multi-Drug Resistant Organisms: None Reported Past Surgical History: Tonsillectomy Past Anesthesia/Blood Transfusion Reactions: No Reported Reaction Past Psychological History: Anxiety, Depression Smoking Status: Current every day smoker Past Alcohol Use History: Daily, Heavy Past Drug Use History: Marijuana General Exam Limitations: no limitations General appearance: alert, in no apparent distress Head exam: Present: atraumatic, normocephalic Eye exam: Present: normal appearance. Absent: scleral icterus, conjunctival injection Respiratory exam: Present: normal lung sounds bilaterally. Absent: respiratory distress, wheezes, rales, rhonchi, stridor Cardiovascular Exam: Present: regular rate, normal rhythm, normal heart sounds. Absent: systolic murmur, diastolic murmur, rubs, gallop GI/Abdominal exam: Present: soft, tenderness. Absent: distended, guarding, rebound, rigid, mass, pulsatile mass Extremities exam: Present: normal inspection, normal capillary refill. Absent: pedal edema, calf tenderness Back exam: Present: normal inspection. Absent: CVA tenderness (R), CVA tenderness (L) Neurological exam: Present: alert Skin exam: Present: warm, dry, intact, normal color. Absent: rash Course Vital Signs 10/15/22 10/15/22 10/16/22 21:02 22:29 02:00 Temperature 98.5 F Pulse Rate 77 70 98 Respiratory 15 15 Rate Blood Pressure 126/71 98/56 O2 Sat by Pulse 100 94 L 100 Oximetry Medical Decision Making - Medical Decision Making This patient is 41-year-old woman with history of previous gallstones and related colicky pain. She started having a flareup tonight. The patient's workup does not reveal concerning physical findings for acute cholecystitis. Her workup not suggestive of acute cholecystitis. The patient is feeling better following medication and would like to go home. We discussed appropriate further care and follow-up as well as return parameters. The patient did have KUB x-ray which I interpreted as being negative for free air or bowel obstruction Was pt. sent in by a medical professional or institution (, JESE, SALES REPRESENTATIVE TRAINEE, urgent care, hospital, or residential...) When possible be specific @ -[No] Did you speak to anyone other than the patient for history (EMS, parent, family, police, friend...)? What history was obtained from this source @ -[No] Did you review nursing and triage notes (agree or disagree)? Why? @ -[I reviewed and agree with nursing and triage notes] Were old charts reviewed (outside hosp., previous admission, EMS record, old EKG, old radiological studies, urgent care reports/EKG's, residential records)? Report findings @ -[old charts were reviewed] Differential Diagnosis (chest pain, altered mental status, abdominal pain women, abdominal pain men, vaginal bleeding, weakness, fever, dyspnea, syncope, headache, dizziness, GI bleed, back pain, seizure, CVA, palpatations, mental health, musculoskeletal)? @ -[Differential Abdominal Pain Women: Appendicitis, Cholecystitis, diverticulosis, ischemic bowel, pancreatitis, hepatitis, UTI, gastroenteritis, AAA, incarcerated hernia, bowel obstruction, constipation, inflammatory bowel, hepatitis, peptic ulcer disease, splenic infarction, perforated viscus, vulvitis, ovarian torsion, PID, kidney stone, placenta abruption, this is not meant to be an all-inclusive list EKG interpreted by me (3pts min.). @ -[As above] X-rays interpreted by me (1pt min.). @ -[As above CT interpreted by me (1pt min.). @ -[None done] U/S interpreted by me (1pt. min.). @ -[None done] What testing was considered but not performed or refused? (CT, X-rays, U/S, labs)? Why? @ -[None] What meds were considered but not given or refused? Why? @ -[None] Did you discuss the management of the patient with other professionals (professionals i.e. , PA, SALES REPRESENTATIVE TRAINEE, lab, RT, psych nurse, executive secretary social welfare, brand designer, teacher, corrections officer, piano case maker)? Give summary @ -[No] Was smoking cessation discussed for >3mins.? @ -[No] Was critical care preformed (if so, how long)? @ -[No] Were there social determinants of health that impacted care today? How? (Homelessness, low income, unemployed, alcoholism, drug addiction, transportation, low edu. Level, literacy, decrease access to med. care, shelter, rehab)? @ -[No] Was there de-escalation of care discussed even if they declined (Discuss DNR or withdrawal of care, Hospice)? DNR status @ -[No] What co-morbidities impacted this encounter? (DM, HTN, Smoking, COPD, CAD, Cancer, CVA, ARF, Chemo, Hep., AIDS, mental health diagnosis, sleep apnea, morbid obesity)? @ -[None] Was patient admitted / discharged? Hospital course, mention meds given and route, prescriptions, significant lab abnormalities, going to OR and other pertinent info. @ -[Discharged Undiagnosed new problem with uncertain prognosis? @ -[No] Drug Therapy requiring intensive monitoring for toxicity (Heparin, Nitro, Insulin, Cardizem)? @ -[No] Were any procedures done? @ -[No] Diagnosis/symptom? @ -[Acute biliary colic Acute, or Chronic, or Acute on Chronic? @ -[default] Uncomplicated (without systemic symptoms) or Complicated (systemic symptoms)? @ -[Uncomplicated Side effects of treatment? @ -[No] Exacerbation, Progression, or Severe Exacerbation? @ -[No] Poses a threat to life or bodily function? How? (Chest pain, [place], [place], pneumonia, PE, COPD, DKA, ARF, appy, cholecystitis, CVA, Diverticulitis, Homicidal, Suicidal, threat to staff... and all critical care pts) @ -[No] - Lab Data Result diagrams: 10/15/22 21:34 10/15/22 21:34 Lab Results 10/15/22 10/15/22 10/15/22 Range/Units 21:34 21:34 21:34 WBC 5.9 (3.8-10.6) k/uL RBC 4.01 (3.80-5.40) m/uL Hgb 10.0 L (11.4-16.0) gm/dL Hct 32.0 L (34.0-46.0) % MCV 79.9 L (80.0-100.0) fL MCH 24.9 L (25.0-35.0) pg MCHC 31.2 (31.0-37.0) g/dL RDW 19.9 H (11.5-15.5) % Plt Count 140 L D (150-450) k/uL MPV 9.0 Neutrophils % 58 % Lymphocytes % 27 % Monocytes % 4 % Eosinophils % 7 % Basophils % 0 % Neutrophils # 3.4 (1.3-7.7) k/uL Lymphocytes # 1.6 (1.0-4.8) k/uL Monocytes # 0.2 (0-1.0) k/uL Eosinophils # 0.4 (0-0.7) k/uL Basophils # 0.0 (0-0.2) k/uL Hypochromasia Slight Anisocytosis Slight Microcytosis Slight Sodium 137 (137-145) mmol/L Potassium 3.8 (3.5-5.1) mmol/L Chloride 106 (98-107) mmol/L Carbon Dioxide 18 L (22-30) mmol/L Anion Gap 13 mmol/L BUN 10 (7-17) mg/dL Creatinine 0.46 L (0.52-1.04) mg/dL Est GFR (CKD-EPI)AfAm >90 (>60 ml/min/1.73 sqM) Est GFR (CKD-EPI)NonAf >90 (>60 ml/min/1.73 sqM) Glucose 97 (74-99) mg/dL Plasma Lactic Acid Vinay 1.4 (0.7-2.0) mmol/L Calcium 8.2 L (8.4-10.2) mg/dL Total Bilirubin 1.8 H (0.2-1.3) mg/dL AST 38 H (14-36) U/L ALT 25 (4-34) U/L Alkaline Phosphatase 93 (38-126) U/L Total Protein 7.5 (6.3-8.2) g/dL Albumin 3.8 (3.5-5.0) g/dL Amylase 108 (30-110) U/L Lipase 430 H (23-300) U/L Disposition Clinical Impression: Biliary colic Disposition: HOME SELF-CARE Condition: Good Instructions (If sedation given, give patient instructions): Abdominal Pain (ED) Is patient prescribed a controlled substance at d/c from ED?: No Referrals: Isaias Johnson MD [Primary Care Provider] - 1-2 days
[2022-10-15] MEDS ORDERED: SODIUM CHLORIDE 0.9% 500 ML 500 ML IV STA (21:45)
[2022-10-15] MEDS ORDERED: MORPHINE SULFATE 4 MG/ML SYRINGE IV STA (21:45)
[2022-10-15] MEDS ORDERED: ONDANSETRON 4 MG/2 ML VIAL IVP STA (21:45)
[2022-10-15 22:17] LABS: Anisocytosis Slight; Basophils % (A) 0 %; Eosinophils # (A) 0.4 k/uL (0-0.7); Eosinophils % (A) 7 %; Hypochromasia Slight; Lymphocytes # (A) 1.6 k/uL (1.0-4.8); Lymphocytes % (A) 27 %; MCH 24.9 pg (25.0-35.0); MCHC 31.2 g/dL (31.0-37.0); MCV 79.9 fL (80.0-100.0); Microcytosis Slight; Monocytes # (A) 0.2 k/uL (0-1.0); Monocytes % (A) 4 %; Neutrophils # (A) 3.4 k/uL (1.3-7.7); Neutrophils % (A) 58 %; RBC 4.01 m/uL (3.80-5.40); RDW 19.9 % (11.5-15.5); WBC 5.9 k/uL (3.8-10.6)
[2022-10-15 22:19] LABS: Platelet Count 140 k/uL (150-450)
[2022-10-15 22:26] LABS: ALT 25 U/L (4-34); AST 38 U/L (14-36); African American GFR (CKD) >90 (>60 ml/min/1.73 sqM); Albumin 3.8 g/dL (3.5-5.0); Alkaline Phosphatase 93 U/L (38-126); Amylase 108 U/L (30-110); Anion Gap 13 mmol/L; Blood Urea Nitrogen 10 mg/dL (7-17); Calcium 8.2 mg/dL (8.4-10.2); Carbon Dioxide 18 mmol/L (22-30); Chloride 106 mmol/L (98-107); Glucose 97 mg/dL (74-99); Lipase 430 U/L (23-300); Non-African American GFR(CKD) >90 (>60 ml/min/1.73 sqM); Potassium 3.8 mmol/L (3.5-5.1); Sodium 137 mmol/L (137-145); Total Bilirubin 1.8 mg/dL (0.2-1.3); Total Protein 7.5 g/dL (6.3-8.2)
--- NOTE | 2022-10-15 23:12 | XR ---
EXAM: XR Abdomen, 1 View CLINICAL HISTORY: ITS.REASON XR Reason: abdominal pain TECHNIQUE: Frontal supine view of the abdomen/pelvis. COMPARISON: No relevant prior studies available. FINDINGS: Lower thorax: The lung bases are clear. Gastrointestinal tract: Nonobstructive bowel gas pattern. Organs: 2 large gallstones measuring approximately 2.7 x 2.7 and 2.6 x 2.5 cm. Bones/joints: Unremarkable. IMPRESSION: Nonobstructive bowel gas pattern.
[2022-10-16 02:19] VITALS: BP 98/56; PULSE 98
== END 2022-10-16 02:17 | disposition home or self-care (01) ==
LOC: EC 20:35
DX: K80.70 Calculus of gallbladder and bile duct without cholecystitis without obstruction (principal); F12.90 Cannabis use, unspecified, uncomplicated; F17.200 Nicotine dependence, unspecified, uncomplicated; F41.9 Anxiety disorder, unspecified; F32.A Depression, unspecified; Z79.899 Other long term (current) drug therapy; Z88.1 Allergy status to other antibiotic agents
CPT/HCPCS: 36415; 80053; 82150; 83605; 83690; 85025; 74018; 99284; 96374; 96375; J2270; J2405; 99285

== ENCOUNTER 2022-10-24 13:14 | Observation (INO) | payer OTHER ==
[2022-10-24] MEDS ORDERED: SODIUM CHLORIDE 0.9% 1,000 ML IV STA (14:39)
--- NOTE | 2022-10-24 15:00 | ED ---
General Adult HPI - General Chief complaint: Alcohol Stated complaint: Mental Health Time Seen by Provider: 10/24/22 14:37 Source: patient Mode of arrival: ambulatory Limitations: no limitations - History of Present Illness Initial comments: Dictation was produced using [employer] dictation software. please excuse any grammatical, word or spelling errors. Chief Complaint: 41-year-old female presents emergency department for alcohol intoxication History of Present Illness: Is 41-year-old female she states she is depressed. She is tearful and states that she was only trying to protect her children from her was an alcoholic. Patient has been treating large amounts of alcohol for the last 3 days. She states she started withdrawal. Prior to this binge episode she typically does not drink alcohol. Denies any abdominal pain. Patient is a poor historian due to alcohol intoxication The ROS documented in this emergency department record has been reviewed and confirmed by me. Those systems with pertinent positive or negative responses have been documented in the HPI. All other systems are other negative and/or noncontributory. - Related Data Home Medications Medication Instructions Recorded Confirmed Pantoprazole [Protonix] 40 mg PO DAILY 01/23/22 10/24/22 ursodioL [Ursodiol] 300 mg PO BID 01/23/22 10/24/22 Famotidine 20 mg PO HS 10/15/22 10/24/22 Folic Acid 1 mg PO DAILY 10/15/22 10/24/22 Multivitamins, Thera [Multivitamin 1 tab PO DAILY 10/15/22 10/24/22 (formulary)] Ondansetron Odt [Zofran Odt] 8 mg PO TID PRN 10/15/22 10/24/22 busPIRone HCl [Buspar] 10 mg PO BID@0900,1700 10/15/22 10/24/22 methocarbamoL [Methocarbamol] 500 mg PO QID PRN 10/15/22 10/24/22 traZODone HCL [Desyrel] 100 mg PO HS 10/15/22 10/24/22 Previous Rx's Medication Instructions Recorded Thiamine [Vitamin B-1] 100 mg PO DAILY tab 09/06/22 Venlafaxine HCl ER [Effexor XR] 75 mg PO HS cap 09/06/22 Allergies Allergy/AdvReac Type Severity Reaction Status Date / Time ceftriaxone [From Rocephin] Allergy Rash/Hives Verified 10/24/22 15:40 Review of Systems ROS Statement: Those systems with pertinent positive or pertinent negative responses have been documented in the HPI. ROS Other: All systems not noted in ROS Statement are negative. Past Medical History Past Medical History: Liver Disease Additional Past Medical History / Comment(s): some esophageal varices, gallstones kidney stones History of Any Multi-Drug Resistant Organisms: None Reported Past Surgical History: Tonsillectomy Past Anesthesia/Blood Transfusion Reactions: No Reported Reaction Past Psychological History: Anxiety, Depression Smoking Status: Current every day smoker Past Alcohol Use History: Daily, Heavy Past Drug Use History: Marijuana General Exam - General Exam Comments Initial Comments: PHYSICAL EXAM: General Impression: Alert and oriented x3, not in acute distress, inebriated HEENT: Normocephalic atraumatic, extra-ocular movements intact, pupils equal and reactive to light bilaterally, mucous membranes moist. Cardiovascular: Heart regular rate and rhythm Chest: Able to complete full sentences, no retractions, no tachypnea Abdomen: abdomen soft, non-tender, non-distended, no organomegaly Musculoskeletal: Pulses present and equal in all extremities, no peripheral edema Motor: no focal deficits noted Neurological: CN II-XII grossly intact, no focal motor or sensory deficits noted Skin: Intact with no visualized rashes Psych: Normal affect and mood Limitations: no limitations Course Vital Signs 10/24/22 13:33 Temperature 98.5 F Pulse Rate 144 H Respiratory 18 Rate Blood Pressure 130/81 O2 Sat by Pulse 97 Oximetry Medical Decision Making - Medical Decision Making Was pt. sent in by a medical professional or institution (, PA, CIGARETTE FILTER INSPECTOR, urgent care, hospital, or [facility]...) When possible be specific @ -No Did you speak to anyone other than the patient for history (EMS, parent, family, police, friend...)? What history was obtained from this source @ -No Did you review nursing and triage notes (agree or disagree)? Why? @ -I reviewed and agree with nursing and triage notes Were old charts reviewed (outside hosp., previous admission, EMS record, old EKG, old radiological studies, urgent care reports/EKG's, [facility] records)? Report findings @ -No old charts were reviewed Differential Diagnosis (chest pain, altered mental status, abdominal pain women, abdominal pain men, vaginal bleeding, musculoskeletal, weakness, fever, dyspnea, syncope, headache, dizziness, GI bleed, back pain, seizure, CVA, palpatations, mental health)? @ -Alcohol intoxication, Differential Mental Health: Depression, anxiety, bipolar, psychosis, schizophrenia, borderline personality, situational depression, adjustment disorder, behavioral disorder, brain tumor, malingering, substance abuse, encephalopathy, medication reaction, dementia, hypothyroidism, degenerative neurologic disorder, lupus.... This is not meant to be all-inclusive list EKG interpreted by me (3pts min.). @ -None done X-rays interpreted by me (1pt min.). @ -None done CT interpreted by me (1pt min.). @ -None done U/S interpreted by me (1pt. min.). @ -None done What testing was considered but not performed or refused? (CT, X-rays, U/S, labs)? Why? @ -None What meds were considered but not given or refused? Why? @ -None Did you discuss the management of the patient with other professionals (professionals i.e. , PA, CIGARETTE FILTER INSPECTOR, lab, RT, psych nurse, social security benefits interviewer, home coordinator, teacher, retail loan officer, bottle caser)? Give summary @ -Alcohol level, level of acidosis clinical presentation discussed with Norma Mckeon of [facility] group Was smoking cessation discussed for >3mins.? @ -No Was critical care preformed (if so, how long)? @ -No Were there social determinants of health that impacted care today? How? (Homelessness, low income, unemployed, alcoholism, drug addiction, transportation, low edu. Level, literacy, decrease access to med. care, care home, rehab)? @ -No Was there de-escalation of care discussed even if they declined (Discuss DNR or withdrawal of care, Hospice)? DNR status @ -No What co-morbidities impacted this encounter? (DM, HTN, Smoking, COPD, CAD, Cancer, CVA, ARF, Chemo, Hep., AIDS, mental health diagnosis, sleep apnea, morbid obesity)? @ -None Was patient admitted / discharged? Hospital course, mention meds given and route, prescriptions, significant lab abnormalities, going to OR and other pertinent info. @ -41 yo Female presents emergency department for alcohol intoxication. Patient vital signs shows tachycardia 144. Patient inebriated. Alcohol level is 406, she does have alcoholic ketoacidosis with a bicarb of 19 and 20. Rest was within acceptable limits. She does have a component of mental health. She'll be admitted for alcohol intoxication with consultation to psychiatry. Patient be monitored for signs of alcohol withdrawal Undiagnosed new problem with uncertain prognosis? @ -No Drug Therapy requiring intensive monitoring for toxicity (Heparin, Nitro, Insulin, Cardizem)? @ -No Were any procedures done? @ -No Diagnosis/symptom? Acute, or Chronic, or Acute on Chronic? Uncomplicated (without systemic symptoms) or Complicated (systemic symptoms)? @ -1. Acute alcohol intoxication Side effects of treatment? @ -No Exacerbation, Progression, or Severe Exacerbation? @ -No Poses a threat to life or bodily function? How? (Chest pain, [place], [place], pneumonia, PE, COPD, DKA, ARF, appy, cholecystitis, CVA, Diverticulitis, Homicidal, Suicidal, threat to staff... and all critical care pts) @ -yes - Lab Data Result diagrams: 10/24/22 15:10 10/24/22 15:10 Lab Results 10/24/22 10/24/22 Range/Units 15:10 15:10 WBC 6.3 (3.8-10.6) k/uL RBC 4.10 (3.80-5.40) m/uL Hgb 10.6 L (11.4-16.0) gm/dL Hct 33.3 L (34.0-46.0) % MCV 81.1 (80.0-100.0) fL MCH 25.9 (25.0-35.0) pg MCHC 31.9 (31.0-37.0) g/dL RDW 18.7 H (11.5-15.5) % Plt Count 221 (150-450) k/uL MPV 9.4 Neutrophils % 71 % Lymphocytes % 20 % Monocytes % 5 % Eosinophils % 1 % Basophils % 1 % Neutrophils # 4.4 (1.3-7.7) k/uL Lymphocytes # 1.3 (1.0-4.8) k/uL Monocytes # 0.3 (0-1.0) k/uL Eosinophils # 0.0 (0-0.7) k/uL Basophils # 0.1 (0-0.2) k/uL Hypochromasia Slight Anisocytosis Slight Microcytosis Slight Sodium 140 (137-145) mmol/L Potassium 3.1 L (3.5-5.1) mmol/L Chloride 101 (98-107) mmol/L Carbon Dioxide 19 L (22-30) mmol/L Anion Gap 20 mmol/L BUN 8 (7-17) mg/dL Creatinine 0.68 (0.52-1.04) mg/dL Est GFR (CKD-EPI)AfAm >90 (>60 ml/min/1.73 sqM) Est GFR (CKD-EPI)NonAf >90 (>60 ml/min/1.73 sqM) Glucose 292 H (74-99) mg/dL Calcium 7.6 L (8.4-10.2) mg/dL Magnesium 1.9 (1.6-2.3) mg/dL Total Bilirubin 1.8 H (0.2-1.3) mg/dL AST 50 H (14-36) U/L ALT 27 (4-34) U/L Alkaline Phosphatase 109 (38-126) U/L Total Protein 7.6 (6.3-8.2) g/dL Albumin 4.1 (3.5-5.0) g/dL Lipase 236 (23-300) U/L Serum Alcohol 406 H* mg/dL Disposition Clinical Impression: Alcohol intoxication Disposition: ADMITTED IP TO THIS HOSP Condition: Fair Referrals: Paloma Harris, RAAD [Primary Care Provider] - 1-2 days Decision Time: 16:20
[2022-10-24] MEDS ORDERED: LORazepam 2 MG/ML INJ IV STA (15:25)
[2022-10-24 15:30] LABS: Anisocytosis Slight; Basophils # (A) 0.1 k/uL (0-0.2); Basophils % (A) 1 %; Eosinophils % (A) 1 %; HCT 33.3 % (34.0-46.0); HGB 10.6 gm/dL (11.4-16.0); Hypochromasia Slight; Lymphocytes # (A) 1.3 k/uL (1.0-4.8); Lymphocytes % (A) 20 %; MCH 25.9 pg (25.0-35.0); MCHC 31.9 g/dL (31.0-37.0); MCV 81.1 fL (80.0-100.0); Mean Platelet Volume 9.4; Microcytosis Slight; Monocytes # (A) 0.3 k/uL (0-1.0); Monocytes % (A) 5 %; Neutrophils # (A) 4.4 k/uL (1.3-7.7); Neutrophils % (A) 71 %; Platelet Count 221 k/uL (150-450); RDW 18.7 % (11.5-15.5); WBC 6.3 k/uL (3.8-10.6)
[2022-10-24 16:01] LABS: ALT 27 U/L (4-34); AST 50 U/L (14-36); African American GFR (CKD) >90 (>60 ml/min/1.73 sqM); Albumin 4.1 g/dL (3.5-5.0); Alkaline Phosphatase 109 U/L (38-126); Anion Gap 20 mmol/L; Blood Urea Nitrogen 8 mg/dL (7-17); Calcium 7.6 mg/dL (8.4-10.2); Carbon Dioxide 19 mmol/L (22-30); Chloride 101 mmol/L (98-107); Glucose 292 mg/dL (74-99); Lipase 236 U/L (23-300); Magnesium 1.9 mg/dL (1.6-2.3); Non-African American GFR(CKD) >90 (>60 ml/min/1.73 sqM); Potassium 3.1 mmol/L (3.5-5.1); Sodium 140 mmol/L (137-145); Total Bilirubin 1.8 mg/dL (0.2-1.3); Total Protein 7.6 g/dL (6.3-8.2)
[2022-10-24 16:28] LABS: Alcohol 406 mg/dL
[2022-10-24] MEDS ORDERED: NALOXONE 0.4 MG/ML 1 ML VIAL IV PRN (16:38)
[2022-10-24] MEDS ORDERED: LORazepam 2 MG/ML INJ IV PRN ×2 (16:38)
[2022-10-24] MEDS ORDERED: THIAMINE 100 MG/ML 2 ML VIAL IM STA (16:38)
[2022-10-24] MEDS: SODIUM CHLORIDE 0.9% 1,000 ML IV SCH ×2 (16:56→23:35)
[2022-10-24] MEDS: LORazepam 2 MG/ML INJ IV PRN (21:53)
[2022-10-24] MEDS: KETOROLAC 15 MG/ML 1 ML VIAL IVP SCH (22:47)
[2022-10-25] MEDS: LORazepam 2 MG/ML INJ IV PRN ×2 (03:08→06:31)
[2022-10-25] MEDS: KETOROLAC 15 MG/ML 1 ML VIAL IVP SCH ×4 (06:25→23:51)
[2022-10-25] MEDS: PANTOPRAZOLE 40 MG TABLET PO SCH (06:45)
[2022-10-25] MEDS: SODIUM CHLORIDE 0.9% 1,000 ML IV SCH ×3 (07:40→23:30)
[2022-10-25] MEDS ORDERED: THIAMINE 100 MG TAB PO SCH (09:00)
[2022-10-25] MEDS ORDERED: busPIRone HCl 10 MG TAB PO SCH (09:00)
[2022-10-25] MEDS: ursodioL 300 MG CAP PO SCH ×2 (09:03→20:59)
[2022-10-25] MEDS: POTASSIUM CHLORIDE ER 20 MEQ TAB.ER PO SCH ×2 (11:45→13:45)
[2022-10-25] MEDS ORDERED: DEXTROSE 50% SYRINGE 50 ML IVP PRN ×2 (13:11)
[2022-10-25] MEDS ORDERED: SERTRALINE 25 MG TAB PO STA (13:29)
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
[2022-10-25 14:34] VITALS: BMI 31.1
[2022-10-25] MEDS: INSULIN ASPART (NovoLOG) 100 UNIT/ML VIAL SQ SCH ×2 (16:59→21:08)
[2022-10-25] MEDS: ACAMPROSATE CALCIUM 333 MG TABLET.DR PO SCH ×2 (17:00→20:59)
[2022-10-25 17:09] LABS: Glucose,Whole Blood 105 mg/dL (70-110)
[2022-10-25] MEDS ORDERED: traZODone HCL 100 MG TAB PO SCH (21:00)
[2022-10-25] MEDS: busPIRone HCl 10 MG TAB PO SCH (21:00)
[2022-10-25] MEDS ORDERED: VENLAFAXINE HCL ER 75 MG CAP PO SCH (21:00)
[2022-10-25] MEDS ORDERED: traZODone HCL 50 MG TAB PO SCH (21:00)
[2022-10-25] MEDS ORDERED: VENLAFAXINE HCL ER 37.5 MG CAP PO SCH (21:00)
[2022-10-25] MEDS ORDERED: VENLAFAXINE HCL ER 37.5 MG CAP PO ONE (21:00)
[2022-10-25 21:09] LABS: Glucose,Whole Blood 92 mg/dL (70-110)
[2022-10-26 05:51] LABS: Glucose,Whole Blood 79 mg/dL (70-110)
[2022-10-26] MEDS: INSULIN ASPART (NovoLOG) 100 UNIT/ML VIAL SQ SCH (06:06)
[2022-10-26] MEDS: KETOROLAC 15 MG/ML 1 ML VIAL IVP SCH (06:42)
[2022-10-26] MEDS: PANTOPRAZOLE 40 MG TABLET PO SCH (06:42)
[2022-10-26] MEDS: SODIUM CHLORIDE 0.9% 1,000 ML IV SCH (06:42)
[2022-10-26 07:59] VITALS: BP 126/75; PULSE 83; RESP 17; TEMP 96.9
[2022-10-26] MEDS ORDERED: FOLIC ACID 1 MG TAB PO SCH (09:00)
[2022-10-26] MEDS ORDERED: MULTIVITAMINS, THERA 1 EACH TAB PO SCH (09:00)
[2022-10-26] MEDS ORDERED: THIAMINE 100 MG TAB PO SCH (09:00)
[2022-10-26] MEDS ORDERED: SERTRALINE 50 MG TAB PO SCH (09:00)
[2022-10-26] MEDS: ursodioL 300 MG CAP PO SCH (09:35)
[2022-10-26] MEDS: busPIRone HCl 10 MG TAB PO SCH (09:35)
[2022-10-26] MEDS: ACAMPROSATE CALCIUM 333 MG TABLET.DR PO SCH (09:35)
[2022-10-26 11:10] LABS: Glucose,Whole Blood 92 mg/dL (70-110)
[2022-10-26 12:20] LABS: African American GFR (CKD) 132.6 (60.0-200.0); Albumin 2.9 g/dL (3.8-4.9); Albumin/Globulin Ratio 1.18 (1.60-3.17); Anion Gap 7.9 mmol/L (10.00-18.00); BUN/Creat Ratio 10.2 Ratio (12.00-20.00); Blood Urea Nitrogen 6.1 mg/dL (9.0-27.0); Calcium 7.6 mg/dL (8.7-10.3); Carbon Dioxide 21.4 mmol/L (20.0-27.5); Globulin 2.4 g/dL (1.6-3.3); Magnesium 1.7 mg/dL (1.5-2.4); Non-African American GFR(CKD) 114.4 (60.0-200.0); Total Bilirubin 1.9 mg/dL (0.30-1.20); Total Protein 5.3 g/dL (6.2-8.2)
--- NOTE | 2022-10-27 22:52 | P.DS ---
Providers Date of admission: 10/24/22 16:39 Attending physician: Kimberly Valdes Consults: 10/24/22 16:38 Consult Physician Routine Consulting Provider: Yevgeniy Lyn Consult Reason/Comments: depression Do you want consulting provider notified?: Yes Primary care physician: RAAD Woo Hospital Course: Final Diagnosis Acute alcohol intoxication and impending alcohol withdrawal History of chronic alcohol abuse Hx of liver disease with hyperbilirubinemia Hx of gallstones, not a surgical candidate Anxiety Hyperglycemia hemoglobin A1C of 4.9. Discharge disposition Patient is stable for discharge home. No evidence for acute alcohol withdrawal. Patient was evaluated by psychiatry and has been discharged home on recommending medication changes and patient is given information on follow up with [facility]. Recommend to follow up with PCP and patients GI specialist on discharge. Repeat labs in 2 to 3 days. Hospital Course This is a 41 year old female with medical history of liver disease, gallstones, anxiety and chronic alcohol abuse. Patient presents to the hospital after binge drinking and had a JOHN of 406 on admission. This episode of drinking is brought on by family stressors. Patient had a hemoglobin of 10.6 on admission, potassium of 3.1, glucose of 292, total bilirubin of 1.8 and AST of 50. ALT and alk phos are normal. Patient was recently in the [facility] for abdominal pain secondary to known gallstones which patient has undergone extensive evaluation for and felt high risk for surgical intervention. A KUB xray done which was negative for acute findings and revealed nonobstructive bowel gas pattern. No headache, no tremors, no hallucinations. She is alert x 3. Reports low appetite and unable to tolerate oral intake and feels dehydrated. She is also asking about weaning off the effexor. Patient will be monitored for acute alcohol withdrawal and will receive IV hydration and has been started on ativan CIWA protocol. Patient was evaluated by psychiatry recommending to start the patient on zoloft vs. effexor and patient will discharge on campral TID and oral librium. Patient did have elevated bilirubin 1.8 elevated AST has had no abominal pain no nausea vomiting or diarrhea. Patient will see GI specialist on follow up. Lungs are clear, S1 S2 auscultated, abdomen is soft and nontender. Alert x 3 focal neurological exam is negative. Patient will be discharged home with above mentioned recommendations. Please see medication reconciliation for a list of current medication. Thank you for allowing us to participate in the care of this patient. The impression and plan of care has been dictated by Ligia Valenzuela, Nurse Practitioner as directed. Dr. Rian MD I have performed a history and physical examination and medical decision making of this patient, discussed the same with the dictator, and agree with the dictators assessment and plan as written, documented as a scribe. Based on total visit time, I have performed more than 50% of this visit. Patient Condition at Discharge: Stable Plan - Discharge Summary Discharge Rx Participant: Yes New Discharge Prescriptions: New Acamprosate Calcium [Campral] 333 mg PO TID #90 tab Potassium Chloride ER [K-Dur 20] 20 meq PO DAILY #30 tab Magnesium Oxide [Mag-Ox] 400 mg PO DAILY #30 tablet traZODone HCL [Desyrel] 150 mg PO HS #60 tab chlordiazePOXIDE HCl [Librium] 10 mg PO TID #9 cap Sertraline [Zoloft] 50 mg PO DAILY #30 tab Continue ursodioL [Ursodiol] 300 mg PO BID Venlafaxine HCl ER [Effexor XR] 75 mg PO HS cap methocarbamoL [Methocarbamol] 500 mg PO QID PRN PRN Reason: Pain Folic Acid 1 mg PO DAILY Famotidine 20 mg PO HS Pantoprazole [Protonix] 40 mg PO DAILY Thiamine [Vitamin B-1] 100 mg PO DAILY tab busPIRone HCl [Buspar] 10 mg PO BID@0900,1700 Multivitamins, Thera [Multivitamin (formulary)] 1 tab PO DAILY Ondansetron Odt [Zofran ODT] 8 mg PO TID PRN PRN Reason: Nausea Discontinued traZODone HCL [Desyrel] 100 mg PO HS Discharge Medication List Pantoprazole [Protonix] 40 mg PO DAILY 01/23/22 [History] ursodioL [Ursodiol] 300 mg PO BID 01/23/22 [History] Thiamine [Vitamin B-1] 100 mg PO DAILY tab 09/06/22 [Rx] Venlafaxine HCl ER [Effexor XR] 75 mg PO HS cap 09/06/22 [Rx] Famotidine 20 mg PO HS 10/15/22 [History] Folic Acid 1 mg PO DAILY 10/15/22 [History] Multivitamins, Thera [Multivitamin (formulary)] 1 tab PO DAILY 10/15/22 [History] Ondansetron Odt [Zofran ODT] 8 mg PO TID PRN 10/15/22 [History] busPIRone HCl [Buspar] 10 mg PO BID@0900,1700 10/15/22 [History] methocarbamoL [Methocarbamol] 500 mg PO QID PRN 10/15/22 [History] Acamprosate Calcium [Campral] 333 mg PO TID #90 tab 10/26/22 [Rx] Magnesium Oxide [Mag-Ox] 400 mg PO DAILY #30 tablet 10/26/22 [Rx] Potassium Chloride ER [K-Dur 20] 20 meq PO DAILY #30 tab 10/26/22 [Rx] Sertraline [Zoloft] 50 mg PO DAILY #30 tab 10/26/22 [Rx] chlordiazePOXIDE HCl [Librium] 10 mg PO TID #9 cap 10/26/22 [Rx] traZODone HCL [Desyrel] 150 mg PO HS #60 tab 10/26/22 [Rx] Follow up Appointment(s)/Referral(s): Isaias Johnson MD [REFERRING] - 1 Week [facility] [NON-STAFF] - 1 Week Ambulatory/Diagnostic Orders: Basic Metabolic Panel [LAB.AMB] Time Frame: 3 Days, Location: None Selected Patient Instructions/Handouts: Alcohol Intoxication (DC) Discharge/Stand Alone Forms: Inp Substance Abuse Facilities Discharge Disposition: HOME SELF-CARE
== END 2022-10-26 11:48 | disposition home or self-care (01) ==
LOC: EC 13:14 → 5NMEDONC 16:39 → INTOOBSV 16:39 → 5NMEDONC 22:17 → 4SSUR 10-25 02:15
PROVIDERS: ADMIT Hospitalist; ATTEND Hospitalist
DX: F10.229 Alcohol dependence with intoxication, unspecified (principal); F10.239 Alcohol dependence with withdrawal, unspecified; F10.280 Alcohol dependence with alcohol-induced anxiety disorder; F33.1 Major depressive disorder, recurrent, moderate; E87.29 Other acidosis; Y90.8 Blood alcohol level of 240 mg/100 ml or more; K70.30 Alcoholic cirrhosis of liver without ascites; F17.290 Nicotine dependence, other tobacco product, uncomplicated; K80.10 Calculus of gallbladder with chronic cholecystitis without obstruction; I85.00 Esophageal varices without bleeding; R73.9 Hyperglycemia, unspecified; E80.6 Other disorders of bilirubin metabolism; E66.9 Obesity, unspecified; Z68.31 Body mass index [BMI] 31.0-31.9, adult; Z79.899 Other long term (current) drug therapy; Z88.1 Allergy status to other antibiotic agents; Z87.442 Personal history of urinary calculi; Z98.890 Other specified postprocedural states; Z81.1 Family history of alcohol abuse and dependence; Z81.8 Family history of other mental and behavioral disorders; Z81.3 Family history of other psychoactive substance abuse and dependence
CPT/HCPCS: 96376 ×3; 96361 ×2; 96372; 96374; 96375; 99285; 36415; 93005; 80053 ×2; 83690; 83735 ×2; 85025; 83036; G0378 ×2; G0480; J2060 ×2; J3411; J1885 ×3; 80320

== ENCOUNTER 2022-11-01 22:43 | Emergency (ER) | payer OTHER ==
[2022-11-02] MEDS ORDERED: SODIUM CHLORIDE 0.9% 1,000 ML IV ONE (00:05)
[2022-11-02 01:00] LABS: Anisocytosis Slight; Basophils % (A) 1 %; Eosinophils # (A) 0.3 k/uL (0-0.7); Eosinophils % (A) 6 %; HCT 29.1 % (34.0-46.0); HGB 9.4 gm/dL (11.4-16.0); Hypochromasia Slight; Lymphocytes # (A) 1.7 k/uL (1.0-4.8); Lymphocytes % (A) 40 %; MCH 25.7 pg (25.0-35.0); MCHC 32.5 g/dL (31.0-37.0); MCV 79.1 fL (80.0-100.0); Mean Platelet Volume 9.1; Microcytosis Slight; Monocytes # (A) 0.2 k/uL (0-1.0); Monocytes % (A) 4 %; Neutrophils % (A) 47 %; RBC 3.67 m/uL (3.80-5.40); RDW 19.4 % (11.5-15.5); WBC 4.2 k/uL (3.8-10.6)
[2022-11-02 01:01] LABS: Platelet Count 108 k/uL (150-450)
[2022-11-02 01:19] LABS: ALT 48 U/L (4-34); AST 90 U/L (14-36); African American GFR (CKD) >90 (>60 ml/min/1.73 sqM); Albumin 3.3 g/dL (3.5-5.0); Alkaline Phosphatase 103 U/L (38-126); Anion Gap 9 mmol/L; Blood Urea Nitrogen 7 mg/dL (7-17); Calcium 8.2 mg/dL (8.4-10.2); Carbon Dioxide 27 mmol/L (22-30); Chloride 105 mmol/L (98-107); Glucose 114 mg/dL (74-99); Non-African American GFR(CKD) >90 (>60 ml/min/1.73 sqM); Potassium 3.5 mmol/L (3.5-5.1); Sodium 141 mmol/L (137-145); Total Bilirubin 1.7 mg/dL (0.2-1.3); Total Protein 6.6 g/dL (6.3-8.2)
[2022-11-02 01:28] LABS: Alcohol 166 mg/dL
--- NOTE | 2022-11-02 02:35 | ED ---
General Adult HPI - General Chief complaint: Alcohol Stated complaint: ALCOHOL Time Seen by Provider: 11/01/22 23:49 Source: patient, RN notes reviewed, old records reviewed Mode of arrival: ambulatory Limitations: no limitations - History of Present Illness Initial comments: 41-year-old female presents for evaluation of alcohol intoxication and concern for dehydration. Patient is to drinking alcohol prior to arrival. He states that she is a binge drinker and not a daily drinker. She was admitted to this institution one week ago with alcohol intoxication. She denies previous history of alcohol withdrawal seizures. I did discuss possibility of alcohol rehabilitation but the patient states she is not willing to commit to rehabilitation at this time. She is in AA. She is not suicidal. - Related Data Home Medications Medication Instructions Recorded Confirmed Pantoprazole [Protonix] 40 mg PO DAILY 01/23/22 10/24/22 ursodioL [Ursodiol] 300 mg PO BID 01/23/22 10/24/22 Famotidine 20 mg PO HS 10/15/22 10/24/22 Folic Acid 1 mg PO DAILY 10/15/22 10/24/22 Multivitamins, Thera [Multivitamin 1 tab PO DAILY 10/15/22 10/24/22 (formulary)] Ondansetron Odt [Zofran ODT] 8 mg PO TID PRN 10/15/22 10/24/22 busPIRone HCl [Buspar] 10 mg PO BID@0900,1700 10/15/22 10/24/22 methocarbamoL [Methocarbamol] 500 mg PO QID PRN 10/15/22 10/24/22 Previous Rx's Medication Instructions Recorded Thiamine [Vitamin B-1] 100 mg PO DAILY tab 09/06/22 Venlafaxine HCl ER [Effexor XR] 75 mg PO HS cap 09/06/22 Acamprosate Calcium [Campral] 333 mg PO TID #90 tab 10/26/22 Magnesium Oxide [Mag-Ox] 400 mg PO DAILY #30 tablet 10/26/22 Potassium Chloride ER [K-Dur 20] 20 meq PO DAILY #30 tab 10/26/22 Sertraline [Zoloft] 50 mg PO DAILY #30 tab 10/26/22 chlordiazePOXIDE HCl [Librium] 10 mg PO TID #9 cap 10/26/22 traZODone HCL [Desyrel] 150 mg PO HS #60 tab 10/26/22 Allergies Allergy/AdvReac Type Severity Reaction Status Date / Time ceftriaxone [From Rocephin] Allergy Rash/Hives Verified 11/01/22 22:57 Review of Systems ROS Statement: Those systems with pertinent positive or pertinent negative responses have been documented in the HPI. ROS Other: All systems not noted in ROS Statement are negative. Past Medical History Past Medical History: Liver Disease Additional Past Medical History / Comment(s): some esophageal varices, gallstones kidney stones History of Any Multi-Drug Resistant Organisms: None Reported Past Surgical History: Tonsillectomy Past Anesthesia/Blood Transfusion Reactions: No Reported Reaction Past Psychological History: Anxiety, Depression Smoking Status: Current every day smoker Past Alcohol Use History: Daily, Heavy Past Drug Use History: Marijuana General Exam Limitations: no limitations General appearance: alert, in no apparent distress, other (Clinically sober) Head exam: Present: atraumatic, normocephalic Eye exam: Present: normal appearance, PERRL ENT exam: Present: mucous membranes dry Neck exam: Present: normal inspection. Absent: tenderness Respiratory exam: Present: normal lung sounds bilaterally. Absent: respiratory distress Cardiovascular Exam: Present: normal rhythm, tachycardia GI/Abdominal exam: Present: soft. Absent: distended, tenderness Extremities exam: Present: normal inspection, normal capillary refill Neurological exam: Present: alert, oriented X3, CN II-XII intact Psychiatric exam: Absent: homicidal ideation, suicidal ideation Skin exam: Present: warm, dry, intact Course Vital Signs 11/01/22 11/02/22 22:53 00:40 Temperature 98.2 F Pulse Rate 118 H 85 Respiratory 17 18 Rate Blood Pressure 135/93 118/71 O2 Sat by Pulse 96 95 Oximetry Medical Decision Making - Medical Decision Making Was pt. sent in by a medical professional or institution (, PA, RUG SETTER AXMINSTER, urgent care, hospital, or assisted...) When possible be specific @ -No Did you speak to anyone other than the patient for history (EMS, parent, family, police, friend...)? What history was obtained from this source @ -No Did you review nursing and triage notes (agree or disagree)? Why? @ -I reviewed and agree with nursing and triage notes Were old charts reviewed (outside hosp., previous admission, EMS record, old EKG, old radiological studies, urgent care reports/EKG's, assisted records)? Report findings @ -No old charts were reviewed Differential Diagnosis (chest pain, altered mental status, abdominal pain women, abdominal pain men, vaginal bleeding, weakness, fever, dyspnea, syncope, headache, dizziness, GI bleed, back pain, seizure, CVA, palpatations, mental health, musculoskeletal)? @ Alcohol intoxication, dehydration, electrolyte abnormality EKG interpreted by me (3pts min.). @ -As above X-rays interpreted by me (1pt min.). @ -None done CT interpreted by me (1pt min.). @ -None done U/S interpreted by me (1pt. min.). @ -None done What testing was considered but not performed or refused? (CT, X-rays, U/S, labs)? Why? @ -None What meds were considered but not given or refused? Why? @ -None Did you discuss the management of the patient with other professionals (professionals i.e. , PA, RUG SETTER AXMINSTER, lab, RT, psych nurse, social work specialist, design chief, te acher, special weapons unit officer, medical case worker)? Give summary @ -No Was smoking cessation discussed for >3mins.? @ -No Was critical care preformed (if so, how long)? @ -No Were there social determinants of health that impacted care today? How? (Homelessness, low income, unemployed, alcoholism, drug addiction, transportation, low edu. Level, literacy, decrease access to med. care, care home, rehab)? @ Alcohol abuse Was there de-escalation of care discussed even if they declined (Discuss DNR or withdrawal of care, Hospice)? DNR status @ -No What co-morbidities impacted this encounter? (DM, HTN, Smoking, COPD, CAD, Cancer, CVA, ARF, Chemo, Hep., AIDS, mental health diagnosis, sleep apnea, morbid obesity)? @ -Alcohol abuse Was patient admitted / discharged? Hospital course, mention meds given and route, prescriptions, significant lab abnormalities, going to OR and other pertinent info. @ -41-year-old female presenting with concerns for dehydration and alcohol intoxication. Patient is clinically sober. Her serum alcohol level is 166. She has no signs of withdrawal. She does appear dehydrated, given IV fluids in the emergency department. She has multiple chronic laboratory abnormalities, including anemia, hyperbilirubinemia, and hypoalbuminemia. After IV fluids patient is feeling significantly better and will be discharged with family. Undiagnosed new problem with uncertain prognosis? @ -No Drug Therapy requiring intensive monitoring for toxicity (Heparin, Nitro, Insulin, Cardizem)? @ -No Were any procedures done? @ -No Diagnosis/symptom? @ Alcohol intoxication, dehydration Acute, or Chronic, or Acute on Chronic? @ Acute on chronic Uncomplicated (without systemic symptoms) or Complicated (systemic symptoms)? @ -Complicated Side effects of treatment? @ -No Exacerbation, Progression, or Severe Exacerbation? @ -No Poses a threat to life or bodily function? How? (Chest pain, USA, MA, pneumonia, PE, COPD, DKA, ARF, appy, cholecystitis, CVA, Diverticulitis, Homicidal, Suicidal, threat to staff... and all critical care pts) @ -ES, acute alcohol poisoning, dehydration, electrolyte abnormality - Lab Data Result diagrams: 11/02/22 00:40 11/02/22 00:40 Lab Results 11/02/22 11/02/22 Range/Units 00:40 00:40 WBC 4.2 (3.8-10.6) k/uL RBC 3.67 L (3.80-5.40) m/uL Hgb 9.4 L (11.4-16.0) gm/dL Hct 29.1 L (34.0-46.0) % MCV 79.1 L (80.0-100.0) fL MCH 25.7 (25.0-35.0) pg MCHC 32.5 (31.0-37.0) g/dL RDW 19.4 H (11.5-15.5) % Plt Count 108 L D (150-450) k/uL MPV 9.1 Neutrophils % 47 % Lymphocytes % 40 % Monocytes % 4 % Eosinophils % 6 % Basophils % 1 % Neutrophils # 2.0 (1.3-7.7) k/uL Lymphocytes # 1.7 (1.0-4.8) k/uL Monocytes # 0.2 (0-1.0) k/uL Eosinophils # 0.3 (0-0.7) k/uL Basophils # 0.0 (0-0.2) k/uL Hypochromasia Slight Anisocytosis Slight Microcytosis Slight Sodium 141 (137-145) mmol/L Potassium 3.5 (3.5-5.1) mmol/L Chloride 105 (98-107) mmol/L Carbon Dioxide 27 (22-30) mmol/L Anion Gap 9 mmol/L BUN 7 (7-17) mg/dL Creatinine 0.49 L (0.52-1.04) mg/dL Est GFR (CKD-EPI)AfAm >90 (>60 ml/min/1.73 sqM) Est GFR (CKD-EPI)NonAf >90 (>60 ml/min/1.73 sqM) Glucose 114 H (74-99) mg/dL Calcium 8.2 L (8.4-10.2) mg/dL Total Bilirubin 1.7 H (0.2-1.3) mg/dL AST 90 H (14-36) U/L ALT 48 H (4-34) U/L Alkaline Phosphatase 103 (38-126) U/L Total Protein 6.6 (6.3-8.2) g/dL Albumin 3.3 L (3.5-5.0) g/dL Serum Alcohol 166 mg/dL Disposition Clinical Impression: Dehydration, Alcoholic intoxication Disposition: HOME SELF-CARE Condition: Fair Instructions (If sedation given, give patient instructions): Alcohol Intoxication (ED) Additional Instructions: Please follow up with [facility] or alternative rehabilitation program. Is patient prescribed a controlled substance at d/c from ED?: No Referrals: Isaias Johnson MD [Primary Care Provider] - 1-2 days Time of Disposition: 02:35
[2022-11-02 03:26] VITALS: BP 111/56; PULSE 79; RESP 16; TEMP 98.3
== END 2022-11-02 03:35 | disposition home or self-care (01) ==
LOC: EC 22:43
DX: F10.129 Alcohol abuse with intoxication, unspecified (principal); E86.0 Dehydration; F41.9 Anxiety disorder, unspecified; F32.A Depression, unspecified; F17.200 Nicotine dependence, unspecified, uncomplicated; F12.90 Cannabis use, unspecified, uncomplicated; Z79.899 Other long term (current) drug therapy; Z88.1 Allergy status to other antibiotic agents
CPT/HCPCS: 36415; 80053; 85025; 99284; 96360; G0480; 80320

== ENCOUNTER 2022-12-22 16:28 | Observation (INO) | payer OTHER ==
[2022-12-22] MEDS ORDERED: SODIUM CHLORIDE 0.9% 1,000 ML with MVI, ADULT NO.4 WITH VIT K 10 ML, THIAMINE 100 MG, F... IV ONE ×4 (17:51)
[2022-12-22] MEDS ORDERED: KETOROLAC 15 MG/ML 1 ML VIAL IVP STA (18:05)
[2022-12-22 18:10] LABS: Anisocytosis Moderate; Basophils % (A) 0 %; Eosinophils # (A) 0.1 k/uL (0-0.7); Eosinophils % (A) 2 %; HCT 34.4 % (34.0-46.0); HGB 10.8 gm/dL (11.4-16.0); Hypochromasia Moderate; Lymphocytes # (A) 1.7 k/uL (1.0-4.8); Lymphocytes % (A) 26 %; MCH 24.8 pg (25.0-35.0); MCHC 31.4 g/dL (31.0-37.0); Mean Platelet Volume 8.7; Microcytosis Slight; Monocytes # (A) 0.2 k/uL (0-1.0); Monocytes % (A) 3 %; Neutrophils # (A) 4.4 k/uL (1.3-7.7); Neutrophils % (A) 67 %; Platelet Count 160 k/uL (150-450); RBC 4.35 m/uL (3.80-5.40); RDW 20.2 % (11.5-15.5); WBC 6.7 k/uL (3.8-10.6)
[2022-12-22 18:14] LABS: Appearance,Urine Clear (Clear); Bilirubin,Urine Negative (Negative); Blood,Urine Negative (Negative); Color,Urine Light Yellow; Glucose,Urine (UA) Negative (Negative); Ketones,Urine Negative (Negative); Leukocyte Esterase,Urine Negative (Negative); Nitrite,Urine Negative (Negative); PH, Urine 6.5 (5.0-8.0); Protein,Urine Negative (Negative); Specific Gravity,Urine 1.004 (1.001-1.035); Urobilinogen,Urine <2.0 mg/dL (<2.0)
[2022-12-22 18:26] LABS: ALT 73 U/L (4-34); AST 167 U/L (14-36); African American GFR (CKD) >90 (>60 ml/min/1.73 sqM); Albumin 3.6 g/dL (3.5-5.0); Alkaline Phosphatase 179 U/L (38-126); Anion Gap 12 mmol/L; Blood Urea Nitrogen <2 mg/dL (7-17); Carbon Dioxide 23 mmol/L (22-30); Chloride 111 mmol/L (98-107); Glucose 132 mg/dL (74-99); Lipase 218 U/L (23-300); Non-African American GFR(CKD) >90 (>60 ml/min/1.73 sqM); Potassium 3.6 mmol/L (3.5-5.1); Sodium 146 mmol/L (137-145); Total Bilirubin 2.5 mg/dL (0.2-1.3); Total Protein 7.5 g/dL (6.3-8.2)
[2022-12-22 18:41] LABS: Alcohol 395 mg/dL
[2022-12-22] MEDS ORDERED: HYDROmorphone 0.5 MG/0.5 ML SYRINGE IVP STA (18:50)
[2022-12-22] MEDS ORDERED: NALOXONE 0.4 MG/ML 1 ML VIAL IV PRN (18:55)
--- NOTE | 2022-12-22 19:02 | ED ---
Back Pain HPI - General Chief Complaint: Back Pain/Injury Stated Complaint: Kidney Pain Time Seen by Provider: 12/22/22 17:31 Source: patient Limitations: no limitations - History of Present Illness Initial Comments: Patient a 42-year-old female presents to the emergency department for kidney pain. Upon evaluating patient she states she is here for alcohol intoxication. States she is wanting to quit. Patient is crying. She does have mild pain in her middle back denies injury. No numbness or tingling. No loss of bowel or bladder function. Despite triage note she denies dysuria and other urinary symptoms. States she has been drinking alcohol for the past few weeks. She drinks 2 pints of viable daily, last drink around 3 PM today. No nausea or vomiting. Family expresses concern that patient is suicidal despite denying in triage. States she was recently at [facility] for intake of rubbing alcohol. Patient currently denies suicidal ideation but she is intoxicated. - Related Data Home Medications Medication Instructions Recorded Confirmed Pantoprazole [Protonix] 40 mg PO DAILY 01/23/22 10/24/22 ursodioL [Ursodiol] 300 mg PO BID 01/23/22 10/24/22 Famotidine 20 mg PO HS 10/15/22 10/24/22 Folic Acid 1 mg PO DAILY 10/15/22 10/24/22 Multivitamins, Thera [Multivitamin 1 tab PO DAILY 10/15/22 10/24/22 (formulary)] Ondansetron Odt [Zofran ODT] 8 mg PO TID PRN 10/15/22 10/24/22 busPIRone HCl [Buspar] 10 mg PO BID@0900,1700 10/15/22 10/24/22 methocarbamoL [Methocarbamol] 500 mg PO QID PRN 10/15/22 10/24/22 Previous Rx's Medication Instructions Recorded Thiamine [Vitamin B-1] 100 mg PO DAILY tab 09/06/22 Venlafaxine HCl ER [Effexor XR] 75 mg PO HS cap 09/06/22 Acamprosate Calcium [Campral] 333 mg PO TID #90 tab 10/26/22 Magnesium Oxide [Mag-Ox] 400 mg PO DAILY #30 tablet 10/26/22 Potassium Chloride ER [K-Dur 20] 20 meq PO DAILY #30 tab 10/26/22 Sertraline [Zoloft] 50 mg PO DAILY #30 tab 10/26/22 chlordiazePOXIDE HCl [Librium] 10 mg PO TID #9 cap 10/26/22 traZODone HCL [Desyrel] 150 mg PO HS #60 tab 10/26/22 Allergies Allergy/AdvReac Type Severity Reaction Status Date / Time ceftriaxone [From Rocephin] Allergy Rash/Hives Verified 12/22/22 17:15 Review of Systems ROS Statement: Those systems with pertinent positive or pertinent negative responses have been documented in the HPI. ROS Other: All systems not noted in ROS Statement are negative. Past Medical History Past Medical History: Liver Disease Additional Past Medical History / Comment(s): some esophageal varices, gallstones kidney stones History of Any Multi-Drug Resistant Organisms: None Reported Past Surgical History: Tonsillectomy Past Anesthesia/Blood Transfusion Reactions: No Reported Reaction Past Psychological History: Anxiety, Depression Smoking Status: Current every day smoker Past Alcohol Use History: Daily, Heavy Past Drug Use History: Marijuana General Exam Limitations: no limitations General appearance: alert, anxious Head exam: Present: atraumatic, normal inspection Eye exam: Present: normal appearance, PERRL, EOMI. Absent: scleral icterus, conjunctival injection, periorbital swelling Respiratory exam: Present: normal lung sounds bilaterally. Absent: respiratory distress, wheezes, rales, rhonchi, stridor Cardiovascular Exam: Present: regular rate, normal rhythm, normal heart sounds. Absent: systolic murmur, diastolic murmur, rubs, gallop, clicks GI/Abdominal exam: Present: soft, normal bowel sounds. Absent: distended, tenderness, guarding, rebound, rigid Extremities exam: Present: normal inspection, full ROM, normal capillary refill Back exam: Present: normal inspection, full ROM. Absent: CVA tenderness (R), CVA tenderness (L), paraspinal tenderness, vertebral tenderness Neurological exam: Present: alert Psychiatric exam: Present: anxious Skin exam: Present: warm, dry, intact, normal color. Absent: rash Course Vital Signs 12/22/22 17:12 Temperature 98.3 F Pulse Rate 103 H Respiratory 20 Rate Blood Pressure 129/81 O2 Sat by Pulse 98 Oximetry Medical Decision Making - Medical Decision Making Was pt. sent in by a medical professional or institution (Dr., PA, NURSE CLINICIAN, urgent care, hospital, or alf...) When possible be specific @ -No Did you speak to anyone other than the patient for history (EMS, parent, family, police, friend...)? What history was obtained from this source @ -Family provided history about suicidal ideation Did you review nursing and triage notes (agree or disagree)? Why? @ -I reviewed and agree with nursing and triage notes Were old charts reviewed (outside hosp., previous admission, EMS record, old EKG, old radiological studies, urgent care reports/EKG's, alf records)? Report findings @ -No old charts were reviewed Differential Diagnosis (chest pain, altered mental status, abdominal pain women, abdominal pain men, vaginal bleeding, weakness, fever, dyspnea, syncope, headache, dizziness, GI bleed, back pain, seizure, CVA, palpatations, mental health)? @ -Differential Back Pain: Strain, zoster, cauda equina syndrome, epidural abscess, vertebral osteomyelitis, discitis, fracture, subluxation, disc herniation, DJD, spinal stenosis, dissection, AAA, pancreatitis, peptic ulcer disease, pyelonephritis, kidney stone, this is not meant to be an all-inclusive list. EKG interpreted by me (3pts min.). @ -As above X-rays interpreted by me (1pt min.). @ -None done CT interpreted by me (1pt min.). @ -None done U/S interpreted by me (1pt. min.). @ -None done What testing was considered but not performed or refused? (CT, X-rays, U/S, labs)? Why? @ -None What meds were considered but not given or refused? Why? @ -None Did you discuss the management of the patient with other professionals (professionals i.e. JESE Strickland, NURSE CLINICIAN, lab, RT, psych nurse, social services coordinator, concrete worker, teacher, traffic division commanding officer, window caser)? Give summary @ -No Was smoking cessation discussed for >3mins.? @ -No Was critical care preformed (if so, how long)? @ -No Were there social determinants of health that impacted care today? How? (Homelessness, low income, unemployed, alcoholism, drug addiction, transportation, low edu. Level, literacy, decrease access to med. care, fpc, rehab)? @ -No Was there de-escalation of care discussed even if they declined (Discuss DNR or withdrawal of care, Hospice)? DNR status @ -No What co-morbidities impacted this encounter? (DM, HTN, Smoking, COPD, CAD, Cancer, CVA, ARF, Chemo, Hep., AIDS, mental health diagnosis, sleep apnea, morbid obesity)? @ -None Was patient admitted / discharged? Hospital course, mention meds given and route, prescriptions, significant lab abnormalities, going to OR and other pertinent info. @ -Admitted to obs for alcohol intoxication. Case discussed with Rhona from [facility] who accepts admission psych is consulted Undiagnosed new problem with uncertain prognosis? @ -No Drug Therapy requiring intensive monitoring for toxicity (Heparin, Nitro, Insulin, Cardizem)? @ -No] Were any procedures done? @ -[No] Diagnosis/symptom? @ -alcohol intoxication Acute, or Chronic, or Acute on Chronic? @ -acute Uncomplicated (without systemic symptoms) or Complicated (systemic symptoms)? @ -uncomplicated Side effects of treatment? @ -[No] Exacerbation, Progression, or Severe Exacerbation? @ -[No] Poses a threat to life or bodily function? How? (Chest pain, USA, [place], pneumonia, PE, COPD, DKA, ARF, appy, cholecystitis, CVA, Diverticulitis, Homicidal, Suicidal, threat to staff... and all critical care pts) @ -yes Dr. Sevilla is my attending - Lab Data Result diagrams: 12/22/22 17:53 12/22/22 17:53 Lab Results 12/22/22 12/22/22 12/22/22 Range/Units 17:53 17:53 17:53 WBC 6.7 (3.8-10.6) k/uL RBC 4.35 (3.80-5.40) m/uL Hgb 10.8 L (11.4-16.0) gm/dL Hct 34.4 (34.0-46.0) % MCV 79.0 L (80.0-100.0) fL MCH 24.8 L (25.0-35.0) pg MCHC 31.4 (31.0-37.0) g/dL RDW 20.2 H (11.5-15.5) % Plt Count 160 (150-450) k/uL MPV 8.7 Neutrophils % 67 % Lymphocytes % 26 % Monocytes % 3 % Eosinophils % 2 % Basophils % 0 % Neutrophils # 4.4 (1.3-7.7) k/uL Lymphocytes # 1.7 (1.0-4.8) k/uL Monocytes # 0.2 (0-1.0) k/uL Eosinophils # 0.1 (0-0.7) k/uL Basophils # 0.0 (0-0.2) k/uL Hypochromasia Moderate Anisocytosis Moderate Microcytosis Slight Sodium 146 H (137-145) mmol/L Potassium 3.6 (3.5-5.1) mmol/L Chloride 111 H (98-107) mmol/L Carbon Dioxide 23 (22-30) mmol/L Anion Gap 12 mmol/L BUN <2 L (7-17) mg/dL Creatinine 0.52 (0.52-1.04) mg/dL Est GFR (CKD-EPI)AfAm >90 (>60 ml/min/1.73 sqM) Est GFR (CKD-EPI)NonAf >90 (>60 ml/min/1.73 sqM) Glucose 132 H (74-99) mg/dL Calcium 8.0 L (8.4-10.2) mg/dL Total Bilirubin 2.5 H (0.2-1.3) mg/dL AST 167 H (14-36) U/L ALT 73 H (4-34) U/L Alkaline Phosphatase 179 H (38-126) U/L Total Protein 7.5 (6.3-8.2) g/dL Albumin 3.6 (3.5-5.0) g/dL Lipase 218 (23-300) U/L Urine Color Light Yellow Urine Appearance Clear (Clear) Urine pH 6.5 (5.0-8.0) Ur Specific [place] 1.004 (1.001-1.035) Urine Protein Negative (Negative) Urine Glucose (UA) Negative (Negative) Urine Ketones Negative (Negative) Urine Blood Negative (Negative) Urine Nitrite Negative (Negative) Urine Bilirubin Negative (Negative) Urine Urobilinogen <2.0 (<2.0) mg/dL Ur Leukocyte Esterase Negative (Negative) Serum Alcohol 395 H* mg/dL Disposition Clinical Impression: Alcoholic intoxication Disposition: ADMITTED IP TO THIS [facility] Condition: Stable Referrals: Katherin Johnson MD [Primary Care Provider] - 1-2 days
[2022-12-22] MEDS: KETOROLAC 15 MG/ML 1 ML VIAL IVP SCH (20:35)
[2022-12-22] MEDS: PANTOPRAZOLE 40 MG TABLET PO SCH (20:36)
[2022-12-22] MEDS: LORazepam 1 MG TAB PO PRN (20:55)
[2022-12-22] MEDS: ursodioL 300 MG CAP PO SCH (21:41)
[2022-12-23] MEDS: KETOROLAC 15 MG/ML 1 ML VIAL IVP SCH ×5 (00:22→23:45)
[2022-12-23] MEDS: LORazepam 1 MG TAB PO PRN ×2 (06:05→11:25)
[2022-12-23] MEDS: ursodioL 300 MG CAP PO SCH ×2 (08:27→20:25)
[2022-12-23] MEDS: PANTOPRAZOLE 40 MG TABLET PO SCH ×2 (08:27→16:58)
[2022-12-23] MEDS ORDERED: THIAMINE 100 MG/ML 2 ML VIAL IM STA (09:15)
[2022-12-23] MEDS ORDERED: LORazepam 1 MG TAB PO PRN ×2 (09:15)
--- NOTE | 2022-12-23 14:08 | P.HPIM ---
History of Present Illness H&P Date: 12/23/22 History of present illness; patient is a 42-year-old lady with past medical sign ificant for liver disease, gallstones, anxiety and chronic alcohol abuse who presented to the ER for alcohol detox. Patient initially presented stating that she has kidney pain but later on after talking with the ER doctor explained that she is here to quit drinking. Patient has long history of alcohol abuse has been admitted in the past for alcohol detox as well. Patient was combining of back pain. Denies any suicidal or homicidal thoughts. Denies any auditory or visual hallucinations. Initial lab work done in the ER showed WBC 6.7, hemoglobin 10.8, platelet count 160, sodium 146, potassium 3.6, BUN 2, creatinine 0.52, AST 167, AST 73 Patient was admitted to medicine service REVIEW OF SYSTEMS: CONSTITUTIONAL: No fever, no malaise, no fatigue. Complaining of Back pain HEENT: No recent visual problems or hearing problems. Denied any sore throat. CARDIOVASCULAR: No chest pain, orthopnea, PND, no palpitations, no syncope. PULMONARY: No shortness of breath, no cough, no hemoptysis. GASTROINTESTINAL: No diarrhea, no nausea, no vomiting, no abdominal pain. NEUROLOGICAL: No headaches, no weakness, no numbness. HEMATOLOGICAL: Denies any bleeding or petechiae. GENITOURINARY: Denies any burning micturition, frequency, or urgency. MUSCULOSKELETAL/RHEUMATOLOGICAL: Denies any joint pain, swelling, or any muscle pain. ENDOCRINE: Denies any polyuria or polydipsia. The rest of the 14-point review of systems is negative. PHYSICAL EXAMINATION: GENERAL: The patient is alert and oriented x3, not in any acute distress. Well developed, well nourished. HEENT: Pupils are round and equally reacting to light. EOMI. No scleral icterus. No conjunctival pallor. Normocephalic, atraumatic. No pharyngeal erythema. No thyromegaly. CARDIOVASCULAR: S1 and S2 present. No murmurs, rubs, or gallops. PULMONARY: Chest is clear to auscultation, no wheezing or crackles. ABDOMEN: Soft, nontender, nondistended, normoactive bowel sounds. No palpable organomegaly. MUSCULOSKELETAL: No joint swelling or deformity. EXTREMITIES: No cyanosis, clubbing, or pedal edema. NEUROLOGICAL: Gross neurological examination did not reveal any focal deficits. SKIN: No rashes. Assessment and plan Elevated LFTs Acute alcohol intoxication Alcohol abuse Suicidal ideations History of chronic alcohol abuse Hx of liver disease with hyperbilirubinemia Hx of gallstones, not a surgical candidate Anxiety Hyperglycemia Monitor vital signs Monitor CBC Monitor CMP Continue telemetry monitoring Continue thiamine and folic acid Continue CIWA protocol Resume home meds Ordered ultrasound of abdomen Labs and medication were reviewed.. Continue same treatment. Continue with symptomatic treatment. Resume home medication. Monitor labs and vitals. DVT and GI prophylaxis. Further recommendations as per clinical course of the yoli ent Past Medical History Past Medical History: Liver Disease Additional Past Medical History / Comment(s): some esophageal varices, gallstones kidney stones History of Any Multi-Drug Resistant Organisms: None Reported Past Surgical History: Tonsillectomy Past Anesthesia/Blood Transfusion Reactions: No Reported Reaction Past Psychological History: Anxiety, Depression Smoking Status: Current every day smoker, Vaper Past Alcohol Use History: Daily, Heavy Past Drug Use History: Marijuana Medications and Allergies Home Medications Medication Instructions Recorded Confirmed Type Pantoprazole [Protonix] 40 mg PO BID 01/23/22 12/22/22 History ursodioL [Ursodiol] 300 mg PO BID 01/23/22 12/22/22 History Allergies Allergy/AdvReac Type Severity Reaction Status Date / Time ceftriaxone [From Rocephin] Allergy Rash/Hives Verified 12/22/22 17:15 Physical Exam Vitals: Vital Signs Temp Pulse Pulse Resp BP BP Pulse Ox 12/23/22 07:00 98.6 F 89 15 101/60 98 12/23/22 02:21 98.4 F 91 15 106/73 95 12/22/22 21:50 98.3 F 93 17 120/78 98 12/22/22 17:12 98.3 F 103 H 20 129/81 98 Intake and Output 12/22/22 12/23/22 12/23/22 22:59 06:59 14:59 Other: # Voids 1 # Bowel Movements 1 Weight 63.503 kg Results CBC & Chem 7: 12/22/22 17:53 12/22/22 17:53 Labs: Abnormal Lab Results - Last 24 Hours (Table) 12/22/22 12/22/22 Range/Units 17:53 17:53 Hgb 10.8 L (11.4-16.0) gm/dL MCV 79.0 L (80.0-100.0) fL MCH 24.8 L (25.0-35.0) pg RDW 20.2 H (11.5-15.5) % Sodium 146 H (137-145) mmol/L Chloride 111 H (98-107) mmol/L BUN <2 L (7-17) mg/dL Glucose 132 H (74-99) mg/dL Calcium 8.0 L (8.4-10.2) mg/dL Total Bilirubin 2.5 H (0.2-1.3) mg/dL AST 167 H (14-36) U/L ALT 73 H (4-34) U/L Alkaline Phosphatase 179 H (38-126) U/L Serum Alcohol 395 H* mg/dL Thrombosis Risk Factor Assmnt - Choose All That Apply Each Factor Represents 1 point: Age 41-60 years, Obesity (BMI >25) Thrombosis Risk Factor Assessment Total Risk Factor Score: 2 Thrombosis Risk Factor Assessment Level: Low Risk
--- NOTE | 2022-12-23 14:48 | P.CN ---
Psychiatric Consult - . Consult date: 12/23/22 Consult:: 12/23/22 14:19 IDENTIFYING DATA: This patient is a 42-year-old female currently unemployed REASON FOR REFERRAL: Psychiatry was consulted for depression and possible suicidal ideation HISTORY OF PRESENT ILLNESS: The patient presented to the hospital on 12/12/2022 with alcohol intoxication. Patient was admitted for alcohol withdrawal. Bhavna states that she has been drinking alcohol excessively and admits that she needs help. She reports drinking 2 pints of fire ball daily for the past week recently. She says that her drinking binges can last from 2 days to 2 weeks. Patient states that she has noticed increased craving for alcohol during the week prior to her menses. She states that her mood becomes "sad" the week prior to her menstrual cycle resulting in more negative thoughts and drinking. She also endorses becoming easily overwhelmed during that period. Patient admits to recent stressors including separation from her and financial strain. However she states that the relationship with her continues to be respectful and friendly. She currently reports improved mood but admits that she was feeling "sad" the past week. She states that she constantly worries about the health and well-being of her family. In psychiatric review of systems, patient denies issues with sleep, she denies thoughts of guilt or worthlessness, she denies concentration issues, she denies increased or d ecreased appetite, and she denies psychomotor retardation. Patient reports sleeping 6 hours at baseline. She states that her energy has been lower in the past week. She reports enjoying restaurants, watching TV, and spending time with her family and father. Patient is future oriented and hopes to visit her father after leaving the hospital as well as spending time with her children. She states that her alcohol withdrawal symptoms are currently well controlled with Ativan and denies concerns. At this time patient denies any suicidal or homicidal ideations, intent or plan. Patient denies any auditory, visual hallucinations and denies any paranoia or delusions. She denies access to guns or firearms. Patient was petitioned by her son Ephraim due to expressing that she wanted to drink rubbing alcohol. This provider spoke with her son over the phone (with patient's verbal consent) who clarified that the patient was saying she wanted to drink that because she did not have access to alcohol. He verified that patient was not expressing suicidal ideation and was not expressing to drink rubbing alcohol in a suicide attempt. He states that when patient is intoxicated, she occasionally expresses fleeting passive suicidal ideation but has not expressed any active suicidal ideation, intent or plan. He believes that she needs help with sobriety. He feels comfortable with her being d ischarged home upon stabilization. PAST PSYCHIATRIC HISTORY: Patient states that she has been seeing a therapist Lois in [place] with whom she discusses alcohol use disorder. She denies having seen or been following up with a psychiatrist. She reports some trials with psychotropic medications that were started by her primary care provider. She reports that Celexa 10 mg was helpful for 3 years but felt it lost its effect after that. Effexor 75 mg- "caused me to have mood swings." Zoloft - headaches. She reports noncompliance with her prescribed BuSpar for anxiety. She states that she takes it occasionally at night and not as directed. Patient also reports having been prescribed Campral but says she was not sure if she needed to take it 3 times a day as prescribed. She denies a history of psychiatric hospitalizations and suicide attempts. PAST MEDICAL HISTORY: Past Medical History: Liver Disease Additional Past Medical History / Comment(s): some esophageal varices, gallstones kidney stones ALLERGIES: as per EMR. CHEMICAL DEPENDENCY HISTORY: as per HPI. She denies having been in outpatient rehab in the past. She reports vaping tobacco FAMILY PSYCHIATRIC/SUBSTANCE USE HISTORY: Depression- paternal grandmother SOCIAL HISTORY: Patient states that her mother when she was 13 years old from ovarian cancer. She currently reports being from her . She states that she has 5 children with whom she lives with. 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 She says that her children are all in sports including wrestling which she enjoys watching. MENTAL STATUS EXAM: General Appearance: Patient appears to be stated age is alert, pleasant, and cooperative. Patient appears to have fair hygiene and grooming wearing hospital gown with fair eye contact. Behavior: Patient is calmly lying in bed without any agitated behavior. Speech: Patient's speech is fluent and nonpressured. Mood/Affect: Patient reports their mood is "much better", affect is congruent Suicidality/Homicidality: Patient denies having any suicidal or homicidal ideation intent or plan. Perceptions: Patient denies any visual hallucinations and denies any auditory hallucinations Though content/process: There is no evidence of any delusional thought content and thought process is linear and goal-directed. Memory and concentration: AOX3, grossly intact for the purposes of this session. Can spell "WORLD" backwards Judgment and insight: Fair IMPRESSIONS: Alcohol use disorder, abuse, moderate, currently in withdrawal Provisional premenstrual dysphoric disorder Anxiety disorder, unspecified PLAN: -At this time patient DOES NOT meet criteria for inpatient psychiatric admission. -Would recommend the following medication changes/additions: Start Campral 666 mg TID for alcohol abstinence- to be continued outpatient Start Lexapro 10 mg daily for low mood and anxiety- to be continued outpatient Start Vit B6 100 mg for PMDD symptoms - to be continued outpatient -Thiamin and folate daily -Discussed above medications, side effects, risks, and alternatives at length with patient. Patient agreeable with the plan and engaged in treatment planning. -CIWA protocol with PRN Ativan for alcohol withdrawal per primary team -Can discontinue 1:1 sitter at this time as patient is not currently an imminent threat to themselves -sample shoe inspector and reworker to provide patient with outpatient mental health/psychiatry resources for appropriate follow up upon discharge and substance use treatment resources including outpatient rehab and AA/NA meetings in the community. -Chemical Process Equipment Operator spoke with patient about substance abuse and the harmful effects on medical and mental health, patient verbally understood and agreed. Contemplative stage -Communicated plan to patient's nurse -Psychiatry will sign off at this time -Please contact with any questions.
--- NOTE | 2022-12-23 16:08 | US ---
EXAMINATION TYPE: US abdomen complete DATE OF EXAM: 12/23/2022 COMPARISON: [place], [place], [place] 2022 CLINICAL INDICATION: Female, 42 years old with history of Abdominal pain, elevated LFTs; Pain, elevat ed LFTs, hx of cirrhosis and gallstones. TECHNIQUE: Multiple sonographic images of the abdomen are obtained. FINDINGS: EXAM MEASUREMENTS: Liver Length: 13.8 cm Gallbladder Wall: 0.24 cm CBD: Obscured Spleen: 12.1 cm Right Kidney: 11.4 x 5.3 x 4.6 cm Left Kidney: 11.2 x 4.9 x 4.0 cm CASTING FINISHER NOTES: Limited due to gas. Pancreas: Very small portions seen appear wnl Liver: Echogenic and attenuating. The secondary limits assessment for focal lesions. Gallbladder: Underlying gallstones, largest measuring 2.1 x 2.0 x 0.9 cm. No abnormal gallbladder di stention, wall thickening, or surrounding fluid. Evidence for sonographic Murrell's sign: No CBD: Obscured Spleen: Appears wnl Right Kidney: No hydronephrosis or masses seen Left Kidney: No hydronephrosis or masses seen Upper IVC: Limited visibility Abd Aorta: Limited visibility of proximal segment. Iliacs were obscured. IMPRESSION: Significant exam limitations due to the degree of bowel gas. Suspect underlying hepatic steatosis. Ch olelithiasis measuring up to 2.1 cm. No ancillary imaging findings of acute cholecystitis. The bile d uct is obscured and not assessed.
[2022-12-23] MEDS: ACAMPROSATE CALCIUM 333 MG TABLET.DR PO SCH ×2 (16:52→21:11)
[2022-12-23] MEDS: ESCITALOPRAM 10 MG TAB PO SCH (16:52)
[2022-12-23] MEDS: PYRIDOXINE 50 MG TAB PO SCH (16:52)
[2022-12-23] MEDS: LORazepam 0.5 MG TAB PO PRN ×2 (16:58→21:11)
[2022-12-23] MEDS: ONDANSETRON 4 MG/2 ML VIAL IVP PRN (18:59)
[2022-12-24] MEDS: KETOROLAC 15 MG/ML 1 ML VIAL IVP SCH ×2 (06:05→11:41)
[2022-12-24] MEDS: PANTOPRAZOLE 40 MG TABLET PO SCH (06:06)
[2022-12-24 07:56] VITALS: BP 114/65; PULSE 80; RESP 16; TEMP 98.5
[2022-12-24] MEDS: ursodioL 300 MG CAP PO SCH (09:00)
[2022-12-24] MEDS ORDERED: FOLIC ACID 1 MG TAB PO SCH (09:00)
[2022-12-24] MEDS: ACAMPROSATE CALCIUM 333 MG TABLET.DR PO SCH (09:00)
[2022-12-24] MEDS ORDERED: THIAMINE 100 MG TAB PO SCH (09:00)
[2022-12-24] MEDS: ESCITALOPRAM 10 MG TAB PO SCH (09:00)
[2022-12-24] MEDS ORDERED: MULTIVITAMINS, THERA 1 EACH TAB PO SCH (09:00)
[2022-12-24] MEDS: PYRIDOXINE 50 MG TAB PO SCH (09:02)
[2022-12-24] MEDS: ONDANSETRON 4 MG/2 ML VIAL IVP PRN (09:51)
[2022-12-24] MEDS: LORazepam 1 MG TAB PO PRN (11:47)
--- NOTE | 2022-12-24 13:32 | P.DS ---
Providers Date of admission: 12/22/22 19:57 Expected date of discharge: 12/24/22 Attending physician: Kimberly Valdes Consults: 12/22/22 18:55 Consult Physician Routine Consulting Provider: Chris Moran Consult Reason/Comments: suidical ideation Do you want consulting provider notified?: Yes Primary care physician: [facility] Course: Discharge diagnoses; Elevated LFTs Acute alcohol intoxication Alcohol abuse Suicidal ideations History of chronic alcohol abuse Hx of liver disease with hyperbilirubinemia Hx of gallstones, not a surgical candidate Anxiety Hyperglycemia Hospital course; patient is a 42-year-old lady with past medical significant for liver disease, gallstones, anxiety and chronic alcohol abuse who presented to the ER for alcohol detox. Patient initially presented stating that she has kidney pain but later on after talking with the ER doctor explained that she is here to quit drinking. Patient has long history of alcohol abuse has been admitted in the past for alcohol detox as well. Patient was combining of back pain. Denies any suicidal or homicidal thoughts. Denies any auditory or visual hallucinations. Initial lab work done in the ER showed WBC 6.7, hemoglobin 10.8, platelet count 160, sodium 146, potassium 3.6, BUN 2, creatinine 0.52, AST 167, AST 73 Patient was admitted to medicine service 12/24. Patient seen and examined. Psych eval the patient, cleared the patient for discharge, patient started on Lexapro. Outpatient follow-up with PCP. PHYSICAL EXAMINATION: GENERAL: The patient is alert and oriented x3, not in any acute distress. Well developed, well nourished. HEENT: Pupils are round and equally reacting to light. EOMI. No scleral icterus. No conjunctival pallor. Normocephalic, atraumatic. No pharyngeal erythema. No thyromegaly. CARDIOVASCULAR: S1 and S2 present. No murmurs, rubs, or gallops. PULMONARY: Chest is clear to auscultation, no wheezing or crackles. ABDOMEN: Soft, nontender, nondistended, normoactive bowel sounds. No palpable organomegaly. MUSCULOSKELETAL: No joint swelling or deformity. EXTREMITIES: No cyanosis, clubbing, or pedal edema. NEUROLOGICAL: Gross neurological examination did not reveal any focal deficits. SKIN: No rashes. Patient Condition at Discharge: Stable Plan - Discharge Summary New Discharge Prescriptions: New Acamprosate Calcium [Campral] 666 mg PO TID 7 Days #21 tab Folic Acid 1 mg PO DAILY #30 tab Escitalopram [Lexapro] 10 mg PO DAILY #30 tab Thiamine [Vitamin B-1] 100 mg PO DAILY #30 tab Continue ursodioL [Ursodiol] 300 mg PO BID Pantoprazole [Protonix] 40 mg PO BID Discharge Medication List Pantoprazole [Protonix] 40 mg PO BID 01/23/22 [History] ursodioL [Ursodiol] 300 mg PO BID 01/23/22 [History] Acamprosate Calcium [Campral] 666 mg PO TID 7 Days #21 tab 12/24/22 [Rx] Escitalopram [Lexapro] 10 mg PO DAILY #30 tab 12/24/22 [Rx] Folic Acid 1 mg PO DAILY #30 tab 12/24/22 [Rx] Thiamine [Vitamin B-1] 100 mg PO DAILY #30 tab 12/24/22 [Rx] Follow up Appointment(s)/Referral(s): Katherin Johnson MD [Primary Care Provider] - 1-2 days Discharge Disposition: HOME SELF-CARE
== END 2022-12-24 14:32 | disposition home or self-care (01) ==
LOC: EC 16:28 → 6NMEDSUR 19:57
PROVIDERS: ADMIT Hospitalist; ATTEND Hospitalist
DX: F10.129 Alcohol abuse with intoxication, unspecified (principal); F10.139 Alcohol abuse with withdrawal, unspecified; E80.6 Other disorders of bilirubin metabolism; R79.89 Other specified abnormal findings of blood chemistry; K76.9 Liver disease, unspecified; Z91.148 Patient's other noncompliance with medication regimen for other reason; F32.81 Premenstrual dysphoric disorder; I85.00 Esophageal varices without bleeding; K80.20 Calculus of gallbladder without cholecystitis without obstruction; R45.851 Suicidal ideations; F32.A Depression, unspecified; F41.9 Anxiety disorder, unspecified; E66.9 Obesity, unspecified; M54.9 Dorsalgia, unspecified; Z68.28 Body mass index [BMI] 28.0-28.9, adult; F17.290 Nicotine dependence, other tobacco product, uncomplicated; Z63.5 Disruption of family by separation and divorce; Y90.8 Blood alcohol level of 240 mg/100 ml or more; Z79.899 Other long term (current) drug therapy; Z88.1 Allergy status to other antibiotic agents; Z87.442 Personal history of urinary calculi; Z81.8 Family history of other mental and behavioral disorders; Z80.41 Family history of malignant neoplasm of ovary
CPT/HCPCS: 96376 ×3; 96366 ×3; 96372; 96375 ×2; 82075; 96365; 99285; 36415; 80053; 83690; 85025; 81003; 76700; G0378 ×3; G0480; J3411 ×2; J2405 ×2; J1885 ×3; 80320

== ENCOUNTER 2023-02-21 09:57 | Inpatient (IN) | payer OTHER ==
--- NOTE | 2023-02-21 10:24 | ED ---
General Adult HPI - General Source: patient, RN notes reviewed Mode of arrival: ambulatory Limitations: no limitations <David Rice - Last Filed: 02/21/23 10:23> <Angle Torrez - Last Filed: 02/21/23 18:30> - General Stated complaint: poss kidney issues Time Seen by Provider: 02/21/23 10:23 - History of Present Illness Initial comments: 42-year-old female presents emergency Department with chief complaint of bilateral flank pain. Patient states she has liver cirrhosis from alcohol abuse. She does state that she continues to drink. Patient is concerned that she may have underlying kidney problems that she has flank pain. She is no history kidney stones denies any dysuria she states her last drink was this morning. (David Rice) Quick note reviewed: This is a 42-year-old female who presents the emergency department with a chief complaint of EtOH intoxication. She reports that she would like to detox today. She reports coming symptoms of bilateral flank pain. She denies any known hematuria, dysuria, fever, nausea, chills, abdominal pain. She denies any history of known history of kidney stones. She reports that her last alcoholic beverage was this morning. She admits to being a heavy daily drinker. She denies any dizziness, lightheadedness, headache, vision changes, vision loss, injury or trauma. (Angle Torrez) - Related Data Home Medications Medication Instructions Recorded Confirmed ursodioL [Ursodiol] 300 mg PO BID 01/23/22 02/21/23 Citalopram Hydrobromide [CeleXA] 20 mg PO DAILY 02/21/23 02/21/23 Pantoprazole Sodium [Protonix] 20 mg PO BID 02/21/23 02/21/23 Allergies Allergy/AdvReac Type Severity Reaction Status Date / Time ceftriaxone [From Rocephin] Allergy Rash/Hives Verified 02/21/23 14:44 Review of Systems ROS Other: All systems not noted in ROS Statement are negative. <David Rice - Last Filed: 02/21/23 10:23> ROS Other: All systems not noted in ROS Statement are negative. <Angle Torrez - Last Filed: 02/21/23 18:30> ROS Statement: Those systems with pertinent positive or pertinent negative responses have been documented in the HPI. Past Medical History Past Medical History: Liver Disease Additional Past Medical History / Comment(s): some esophageal varices, gallstones kidney stones History of Any Multi-Drug Resistant Organisms: None Reported Past Surgical History: Tonsillectomy Past Anesthesia/Blood Transfusion Reactions: No Reported Reaction Past Psychological History: Anxiety, Depression Smoking Status: Current every day smoker, Vaper Past Alcohol Use History: Daily, Heavy Past Drug Use History: Marijuana <David Rice - Last Filed: 02/21/23 10:23> General Exam <David Rice - Last Filed: 02/21/23 10:23> <Angle Torrez - Last Filed: 02/21/23 18:30> - General Exam Comments Initial Comments: Visual Physical Exam Vital signs reviewed General: Well-appearing, nontoxic, no acute distress. Head: Normocephalic, atraumatic Eyes: PERRLA, EOMI ENT: Airway patent Chest: Nonlabored breathing Skin: No visual rash, normal skin tone Neuro: Alert and oriented 3 Musculoskeletal: No gross abnormalities (David Rice) General: Alert, in no acute distress Head: atraumatic normocephalic. Eyes PERRL, EOMI intact, mucous membranes moist Respiratory: Lungs clear to auscultation bilaterally Cardiovascular: Rate regular rate and rhythm Abdominal: Soft without guarding or rebound Extremities: Normal inspection with full range of motion and normal capillary refill Neuroogic: alert and oriented 3, CN II-XII intact, able to ambulate with steady gait Skin: warm dry and intact with normal color (Angle Torrez) Course <Angle Torrez - Last Filed: 02/21/23 18:30> Vital Signs 02/21/23 10:24 Temperature 97.9 F Pulse Rate 133 H Respiratory 18 Rate Blood Pressure 115/75 O2 Sat by Pulse 96 Oximetry - Reevaluation(s) Reevaluation #1: 02/21/23 17:03 Case discussed with rico Gordon who agrees and excessive patient for admission (Angle Torrez) Medical Decision Making <David Rice - Last Filed: 02/21/23 10:23> - Lab Data Result diagrams: 02/21/23 11:44 02/21/23 11:44 <Angle Torrez - Last Filed: 02/21/23 18:30> - Medical Decision Making I performed a quick note portion of this Chart signed David Rice PA-C (David Rice) Was pt. sent in by a medical professional or institution (JESE Strickland, MASH TUB COOKER OPERATOR, urgent care, hospital, or [place] health care facility...) When possible be specific @ -[No] Did you speak to anyone other than the patient for history (EMS, parent, family, police, friend...)? What history was obtained from this source @ -[No] Did you review nursing and triage notes (agree or disagree)? Why? @ -[I reviewed and agree with nursing and triage notes] Were old charts reviewed (outside hosp., previous admission, EMS record, old EKG , old radiological studies, urgent care reports/EKG's, [place] health care facility records)? Report findings @ -[No old charts were reviewed] Differential Diagnosis (chest pain, altered mental status, abdominal pain women, abdominal pain men, vaginal bleeding, weakness, fever, dyspnea, syncope, headache, dizziness, GI bleed, back pain, seizure, CVA, palpatations, mental hea lth, musculoskeletal)? EKG interpreted by me (3pts min.). @ -[As above] X-rays interpreted by me (1pt min.). @ -[None done] CT interpreted by me (1pt min.). @ -[None done] U/S interpreted by me (1pt. min.). @ -[None done] What testing was considered but not performed or refused? (CT, X-rays, U/S, labs)? Why? @ -[None] What meds were considered but not given or refused? Why? @ -[None] Did you discuss the management of the patient with other professionals (professionals i.e. JESE Strickland, MASH TUB COOKER OPERATOR, lab, RT, psych nurse, case management social worker, corporate licensed broker, teacher, legal officer, sample case porter)? Give summary @ -[No] Was smoking cessation discussed for >3mins.? @ -Yes Was critical care preformed (if so, how long)? @ -[No] Were there social determinants of health that impacted care today? How? (Homelessness, low income, unemployed, alcoholism, drug addiction, transportation, low edu. Level, literacy, decrease access to med. care, fdc, rehab)? @ -Chronic Alcohol Abuse Was there de-escalation of care discussed even if they declined (Discuss DNR or withdrawal of care, Hospice)? DNR status @ -[No] What co-morbidities impacted this encounter? (DM, HTN, Smoking, COPD, CAD, Cancer, CVA, ARF, Chemo, Hep., AIDS, mental health diagnosis, sleep apnea, morbid obesity)? @ -[None] Was patient admitted / discharged? Hospital course, mention meds given and route, prescriptions, significant lab abnormalities, going to OR and other pertinent info. @ -[Admission. This is a pleasant 42-year-old female with past medical history significant for EtOH abuse who presents the emergency department with a chief complaint of alcohol intoxication and bilateral flank pain. Patient had a thorough history and physical exam performed. Heart rate regular rate and rhythm, lungs clear to auscultation bilaterally abdomen soft without CVA tenderness. Patient appears clinically intoxicated. Patient EtOH level is 453. Initial lactic acid 5.0 total bilirubin 1.8, ALT [address] abdomen reveals cholelithiasis Case discussed with Rico Cabrera, who agrees and accepts the patient for admission for further observation and assistance with EtOH withdrawal. Undiagnosed new problem with uncertain prognosis? @ -[No] Drug Therapy requiring intensive monitoring for toxicity (Heparin, Nitro, Insulin, Cardizem)? @ -[No] Were any procedures done? @ -[No] Diagnosis/symptom? @ -Bilateral Flank Pain - Alcohol intoxication -Lactic acidosis - HX of Alcohol abuse Acute, or Chronic, or Acute on Chronic? @ -Acute Uncomplicated (without systemic symptoms) or Complicated (systemic symptoms)? @ -Uncomplicated Side effects of treatment? @ -[No] Exacerbation, Progression, or Severe Exacerbation? @ -[No] Poses a threat to life or bodily function? How? (Chest pain, [place], [place], pneumonia, PE, COPD, DKA, ARF, appy, cholecystitis, CVA, Diverticulitis, Homicidal, Suicidal, threat to staff... and all critical care pts) @ -Yes (Angle Torrez) - Lab Data Lab Results 02/21/23 02/21/23 02/21/23 Range/Units 10:30 11:44 11:44 WBC 5.3 (3.8-10.6) k/uL RBC 4.16 (3.80-5.40) m/uL Hgb 10.8 L (11.4-16.0) gm/dL Hct 32.9 L (34.0-46.0) % MCV 79.1 L (80.0-100.0) fL MCH 25.9 (25.0-35.0) pg MCHC 32.8 (31.0-37.0) g/dL RDW 19.0 H (11.5-15.5) % Plt Count 219 (150-450) k/uL MPV 8.3 Neutrophils % 62 % Lymphocytes % 28 % Monocytes % 4 % Eosinophils % 3 % Basophils % 1 % Neutrophils # 3.3 (1.3-7.7) k/uL Lymphocytes # 1.5 (1.0-4.8) k/uL Monocytes # 0.2 (0-1.0) k/uL Eosinophils # 0.1 (0-0.7) k/uL Basophils # 0.0 (0-0.2) k/uL Hypochromasia Slight Poikilocytosis Slight Anisocytosis Slight Microcytosis Slight PT (9.0-12.0) sec INR (<1.2) APTT (22.0-30.0) sec Sodium 146 H (137-145) mmol/L Potassium 3.4 L (3.5-5.1) mmol/L Chloride 107 (98-107) mmol/L Carbon Dioxide 26 (22-30) mmol/L Anion Gap 13 mmol/L BUN 8 (7-17) mg/dL Creatinine 0.64 (0.52-1.04) mg/dL Est GFR (CKD-EPI)AfAm >90 (>60 ml/min/1.73 sqM) Est GFR (CKD-EPI)NonAf >90 (>60 ml/min/1.73 sqM) Glucose 113 H (74-99) mg/dL Lactic Ac Sepsis Rflx Plasma Lactic Acid Vinay (0.7-2.0) mmol/L Calcium 8.4 (8.4-10.2) mg/dL Magnesium 1.9 (1.6-2.3) mg/dL Total Bilirubin 3.1 H (0.2-1.3) mg/dL AST 148 H (14-36) U/L ALT 51 H (4-34) U/L Alkaline Phosphatase 131 H (38-126) U/L Total Protein 7.9 (6.3-8.2) g/dL Albumin 4.1 (3.5-5.0) g/dL Lipase 285 (23-300) U/L Urine Color Yellow Urine Appearance Cloudy H (Clear) Urine pH 6.0 (5.0-8.0) Ur Specific [place] 1.022 (1.001-1.035) Urine Protein Trace H (Negative) Urine Glucose (UA) Negative (Negative) Urine Ketones Negative (Negative) Urine Blood Negative (Negative) Urine Nitrite Negative (Negative) Urine Bilirubin Negative (Negative) Urine Urobilinogen 6.0 (<2.0) mg/dL Ur Leukocyte Esterase Small H (Negative) Urine WBC 3 (0-5) /hpf Ur Squamous Epith Cells 9 H (0-4) /hpf Urine Bacteria Rare H (None) /hpf Urine Mucus Rare H (None) /hpf Serum Alcohol 453 H* mg/dL 02/21/23 02/21/23 02/21/23 Range/Units 11:44 11:44 12:59 WBC (3.8-10.6) k/uL RBC (3.80-5.40) m/uL Hgb (11.4-16.0) gm/dL Hct (34.0-46.0) % MCV (80.0-100.0) fL MCH (25.0-35.0) pg MCHC (31.0-37.0) g/dL RDW (11.5-15.5) % Plt Count (150-450) k/uL MPV Neutrophils % % Lymphocytes % % Monocytes % % Eosinophils % % Basophils % % Neutrophils # (1.3-7.7) k/uL Lymphocytes # (1.0-4.8) k/uL Monocytes # (0-1.0) k/uL Eosinophils # (0-0.7) k/uL Basophils # (0-0.2) k/uL Hypochromasia Poikilocytosis Anisocytosis Microcytosis PT 11.7 (9.0-12.0) sec INR 1.1 (<1.2) APTT 26.1 (22.0-30.0) sec Sodium (137-145) mmol/L Potassium (3.5-5.1) mmol/L Chloride (98-107) mmol/L Carbon Dioxide (22-30) mmol/L Anion Gap mmol/L BUN (7-17) mg/dL Creatinine (0.52-1.04) mg/dL Est GFR (CKD-EPI)AfAm (>60 ml/min/1.73 sqM) Est GFR (CKD-EPI)NonAf (>60 ml/min/1.73 sqM) Glucose (74-99) mg/dL Lactic Ac Sepsis Rflx Y Plasma Lactic Acid Vinay 5.0 H* (0.7-2.0) mmol/L Calcium (8.4-10.2) mg/dL Magnesium (1.6-2.3) mg/dL Total Bilirubin (0.2-1.3) mg/dL AST (14-36) U/L ALT (4-34) U/L Alkaline Phosphatase (38-126) U/L Total Protein (6.3-8.2) g/dL Albumin (3.5-5.0) g/dL Lipase (23-300) U/L Urine Color Urine Appearance (Clear) Urine pH (5.0-8.0) Ur Specific [place] (1.001-1.035) Urine Protein (Negative) Urine Glucose (UA) (Negative) Urine Ketones (Negative) Urine Blood (Negative) Urine Nitrite (Negative) Urine Bilirubin (Negative) Urine Urobilinogen (<2.0) mg/dL Ur Leukocyte Esterase (Negative) Urine WBC (0-5) /hpf Ur Squamous Epith Cells (0-4) /hpf Urine Bacteria (None) /hpf Urine Mucus (None) /hpf Serum Alcohol mg/dL 02/21/23 Range/Units 14:17 WBC (3.8-10.6) k/uL RBC (3.80-5.40) m/uL Hgb (11.4-16.0) gm/dL Hct (34.0-46.0) % MCV (80.0-100.0) fL MCH (25.0-35.0) pg MCHC (31.0-37.0) g/dL RDW (11.5-15.5) % Plt Count (150-450) k/uL MPV Neutrophils % % Lymphocytes % % Monocytes % % Eosinophils % % Basophils % % Neutrophils # (1.3-7.7) k/uL Lymphocytes # (1.0-4.8) k/uL Monocytes # (0-1.0) k/uL Eosinophils # (0-0.7) k/uL Basophils # (0-0.2) k/uL Hypochromasia Poikilocytosis Anisocytosis Microcytosis PT (9.0-12.0) sec INR (<1.2) APTT (22.0-30.0) sec Sodium (137-145) mmol/L Potassium (3.5-5.1) mmol/L Chloride (98-107) mmol/L Carbon Dioxide (22-30) mmol/L Anion Gap mmol/L BUN (7-17) mg/dL Creatinine (0.52-1.04) mg/dL Est GFR (CKD-EPI)AfAm (>60 ml/min/1.73 sqM) Est GFR (CKD-EPI)NonAf (>60 ml/min/1.73 sqM) Glucose (74-99) mg/dL Lactic Ac Sepsis Rflx Plasma Lactic Acid Vinay 5.9 H* (0.7-2.0) mmol/L Calcium (8.4-10.2) mg/dL Magnesium (1.6-2.3) mg/dL Total Bilirubin (0.2-1.3) mg/dL AST (14-36) U/L ALT (4-34) U/L Alkaline Phosphatase (38-126) U/L Total Protein (6.3-8.2) g/dL Albumin (3.5-5.0) g/dL Lipase (23-300) U/L Urine Color Urine Appearance (Clear) Urine pH (5.0-8.0) Ur Specific [place] (1.001-1.035) Urine Protein (Negative) Urine Glucose (UA) (Negative) Urine Ketones (Negative) Urine Blood (Negative) Urine Nitrite (Negative) Urine Bilirubin (Negative) Urine Urobilinogen (<2.0) mg/dL Ur Leukocyte Esterase (Negative) Urine WBC (0-5) /hpf Ur Squamous Epith Cells (0-4) /hpf Urine Bacteria (None) /hpf Urine Mucus (None) /hpf Serum Alcohol mg/dL Disposition <David Rice - Last Filed: 02/21/23 10:23> Is patient prescribed a controlled substance at d/c from ED?: No Time of Disposition: 17:04 <Angle Torrez - Last Filed: 02/21/23 18:30> Clinical Impression: Cirrhosis, History of alcohol abuse, Lactic acidosis, Alcoholic intoxication Disposition: ADMITTED IP TO THIS HOSP Condition: Fair
[2023-02-21 10:58] LABS: Appearance,Urine Cloudy (Clear); Bacteria,Urine Rare /hpf; Bilirubin,Urine Negative (Negative); Blood,Urine Negative (Negative); Color,Urine Yellow; Glucose,Urine (UA) Negative (Negative); Ketones,Urine Negative (Negative); Leukocyte Esterase,Urine Small (Negative); Mucus,Urine Rare /hpf; Nitrite,Urine Negative (Negative); Protein,Urine Trace (Negative); Specific Gravity,Urine 1.022 (1.001-1.035); Squamous Epithelial Cell,Urine 9 /hpf (0-4); WBC,Urine 3 /hpf (0-5)
[2023-02-21 12:03] LABS: Anisocytosis Slight; Basophils % (A) 1 %; Eosinophils # (A) 0.1 k/uL (0-0.7); Eosinophils % (A) 3 %; HCT 32.9 % (34.0-46.0); HGB 10.8 gm/dL (11.4-16.0); Hypochromasia Slight; Lymphocytes # (A) 1.5 k/uL (1.0-4.8); Lymphocytes % (A) 28 %; MCH 25.9 pg (25.0-35.0); MCHC 32.8 g/dL (31.0-37.0); MCV 79.1 fL (80.0-100.0); Mean Platelet Volume 8.3; Microcytosis Slight; Monocytes # (A) 0.2 k/uL (0-1.0); Monocytes % (A) 4 %; Neutrophils # (A) 3.3 k/uL (1.3-7.7); Neutrophils % (A) 62 %; Platelet Count 219 k/uL (150-450); Poikilocytosis Slight; RBC 4.16 m/uL (3.80-5.40); WBC 5.3 k/uL (3.8-10.6)
[2023-02-21 12:24] LABS: INR 1.1 (<1.2); Partial Thromboplastin Time 26.1 sec (22.0-30.0); Prothrombin Time 11.7 sec (9.0-12.0)
[2023-02-21 12:31] LABS: ALT 51 U/L (4-34); AST 148 U/L (14-36); African American GFR (CKD) >90 (>60 ml/min/1.73 sqM); Albumin 4.1 g/dL (3.5-5.0); Alkaline Phosphatase 131 U/L (38-126); Anion Gap 13 mmol/L; Blood Urea Nitrogen 8 mg/dL (7-17); Calcium 8.4 mg/dL (8.4-10.2); Carbon Dioxide 26 mmol/L (22-30); Chloride 107 mmol/L (98-107); Glucose 113 mg/dL (74-99); Lipase 285 U/L (23-300); Magnesium 1.9 mg/dL (1.6-2.3); Non-African American GFR(CKD) >90 (>60 ml/min/1.73 sqM); Potassium 3.4 mmol/L (3.5-5.1); Sodium 146 mmol/L (137-145); Total Bilirubin 3.1 mg/dL (0.2-1.3); Total Protein 7.9 g/dL (6.3-8.2)
[2023-02-21 12:58] LABS: Alcohol 453 mg/dL
[2023-02-21] MEDS ORDERED: SODIUM CHLORIDE 0.9% 1,000 ML IV SCH ×2 (14:15→17:15)
[2023-02-21] MEDS ORDERED: SODIUM CHLORIDE 0.9% 1,000 ML IV ONE (14:33)
--- NOTE | 2023-02-21 16:30 | CT ---
EXAMINATION TYPE: CT abdomen pelvis w con CT DLP: 908.4 mGycm, Automated exposure control for dose reduction was used. DATE OF EXAM: 02/21/2023 4:22 PM COMPARISON: 06/25/2022 CLINICAL INDICATION:Female, 42 years old with history of flank pain; flank pain TECHNIQUE: Axial CT of the abdomen and pelvis. Sagittal and coronal reformats were created on a [employer] workstation. Contrast used:100 mL of Isovue 300 with IV Contrast, (none if empty) Oral contrast used: without Oral Contrast (none if empty) FINDINGS: LOWER CHEST: Unremarkable ABDOMEN LIVER: Diffusely hypoattenuating parenchyma. GALLBLADDER AND BILE DUCTS: Large gallstones in the gallbladder lumen. PANCREAS: Unremarkable. SPLEEN: Unremarkable. ADRENAL GLANDS: Unremarkable. KIDNEYS AND URETERS: No evidence of hydronephrosis or renal calculus. The ureters are unremarkable. PELVIS BLADDER: Unremarkable REPRODUCTIVE: Unremarkable. ABDOMEN & PELVIS STOMACH AND BOWEL: No evidence of bowel obstruction. PERITONEUM/RETROPERITONEUM: No evidence of pneumoperitoneum or free fluid. VASCULATURE: No evidence of aortic aneurysm. Varicosities are seen within the anterior subcutaneous t issues as well as an anterior abdomen the inferior epigastric vasculature. Recanalization of the para umbilical vein. Early paraesophageal varices are also felt to be present. MUSCULOSKELETAL: No acute osseous abnormalities LYMPH NODES: No gross evidence for lymphadenopathy. SOFT TISSUE/ABDOMINAL WALL: Affecting umbilical hernia. IMPRESSION: 1. No laterality was provided. No evidence for obstructive uropathy or renal calculus. 2. Hepatic cirrhosis with steatosis with evidence of portal hypertension with inferior epigastric va rices and anterior abdominal wall varices. There is recanalization of the periumbilical vein. 3. Cholelithiasis.
[2023-02-21] MEDS ORDERED: NALOXONE 0.4 MG/ML 1 ML VIAL IV PRN (17:04)
[2023-02-21] MEDS ORDERED: THIAMINE 100 MG/ML 2 ML VIAL IM STA (17:05)
[2023-02-21] MEDS ORDERED: LORazepam 2 MG/ML INJ IV PRN ×2 (17:05)
[2023-02-21] MEDS ORDERED: POTASSIUM CHLORIDE ER 20 MEQ TAB.ER PO STA (17:23)
[2023-02-21] MEDS ORDERED: LACTATED RINGERS 1,000 ML IV ONE (17:34)
[2023-02-21] MEDS ORDERED: KETOROLAC 15 MG/ML 1 ML VIAL IVP PRN (17:36)
[2023-02-21] MEDS ORDERED: MELATONIN 3 MG TABLET PO PRN (17:36)
[2023-02-21] MEDS ORDERED: PROCHLORPERAZINE 5 MG TAB PO PRN (17:36)
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
[2023-02-21 18:25] LABS: Amphetamine Screen,Urine Not Detected (NotDetected); Barbiturate Screen,Urine Not Detected (NotDetected); Benzodiazepines Screen,Urine Not Detected (NotDetected); Cocaine Screen,Urine Not Detected (NotDetected); Methadone Screen, Urine Not Detected (NotDetected); Opiate Screen,Urine Not Detected (NotDetected); Oxycodone Screen, Urine Not Detected (NotDetected); Phencyclidine Screen,Urine Not Detected (NotDetected); Tricyclic Antidepressant,Urine Not Detected (NotDetected); Urn Cannabinoid Scrn Detected (NotDetected)
[2023-02-21] MEDS: HEPARIN SODIUM,PORCINE 5,000 UNIT/ML 1 ML VIAL SQ SCH ×2 (19:03→23:53)
[2023-02-21] MEDS: LORazepam 2 MG/ML INJ IV PRN (19:04)
[2023-02-21] MEDS: ursodioL 300 MG CAP PO SCH (21:22)
[2023-02-22] MEDS: HEPARIN SODIUM,PORCINE 5,000 UNIT/ML 1 ML VIAL SQ SCH ×3 (08:19→23:21)
[2023-02-22] MEDS: CITALOPRAM HYDROBROMIDE 20 MG TAB PO SCH (08:20)
[2023-02-22] MEDS: THIAMINE 100 MG TAB PO SCH (08:20)
[2023-02-22] MEDS: PANTOPRAZOLE 40 MG/10 ML VIAL IVP SCH (08:22)
[2023-02-22] MEDS: NICOTINE 21MG/24HR PATCH TRANSDERM SCH (08:27)
[2023-02-22] MEDS: LORazepam 0.5 MG TAB PO PRN (08:36)
[2023-02-22] MEDS: ursodioL 300 MG CAP PO SCH ×2 (08:36→20:58)
[2023-02-22 08:38] LABS: Basophils # (A) 0.02 X 10*3/uL (0.00-0.10); Basophils % (A) 0.5 %; Eosinophils # (A) 0.15 X 10*3/uL (0.04-0.35); Eosinophils % (A) 3.7 %; HCT 25.6 % (37.2-46.3); HGB 7.7 d/dL (12.0-15.0); Lymphocytes # (A) 1.22 X 10*3/uL (0.90-5.00); Lymphocytes % (A) 29.8 %; MCH 24.4 pg (27.0-32.0); MCHC 30.1 d/dL (32.0-37.0); Mean Platelet Volume 10.4 FL (9.5-12.2); Monocytes # (A) 0.32 X 10*3/uL (0.20-1.00); Monocytes % (A) 7.8 %; NRBC Per 100 WBC 0 X 10*3/uL (0.00-0.01); Neutrophils # (A) 2.38 X 10*3/uL (1.80-7.70); Platelet Count 144 X 10*3/uL (140-440); RBC 3.16 X 10*6/uL (4.10-5.20); RDW 18.9 % (11.5-14.5)
[2023-02-22 09:10] LABS: ALT 44 U/L (8-44); AST 101 U/L (13-35); Albumin 3.3 d/dL (3.8-4.9); Albumin/Globulin Ratio 1.27 Ratio (1.60-3.17); Alkaline Phosphatase 102 U/L (41-126); Blood Urea Nitrogen 6.1 mg/dL (9.0-27.0); Calcium 7.5 mg/dL (8.7-10.3); Carbon Dioxide 24.8 mmol/L (21.6-31.8); Chloride 104 mmol/L (96-109); Globulin 2.6 d/dL (1.6-3.3); Glucose 72 mg/dL (70-110); Magnesium 1.5 mg/dL (1.5-2.4); Potassium 3.7 mmol/L (3.5-5.5); Sodium 140 mmol/L (135-145); Total Bilirubin 1.9 mg/dL (0.3-1.2); Total Protein 5.9 d/dL (6.2-8.2)
[2023-02-22] MEDS: LORazepam 2 MG/ML INJ IV PRN ×2 (11:43→20:58)
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
[2023-02-23 07:32] VITALS: BP 111/67; PULSE 99; RESP 16; TEMP 98.7
[2023-02-23] MEDS: CITALOPRAM HYDROBROMIDE 20 MG TAB PO SCH (08:44)
[2023-02-23] MEDS: NICOTINE 21MG/24HR PATCH TRANSDERM SCH (08:44)
[2023-02-23] MEDS: PANTOPRAZOLE 40 MG/10 ML VIAL IVP SCH (08:44)
[2023-02-23] MEDS: HEPARIN SODIUM,PORCINE 5,000 UNIT/ML 1 ML VIAL SQ SCH (08:44)
[2023-02-23] MEDS: ursodioL 300 MG CAP PO SCH (08:45)
[2023-02-23] MEDS: THIAMINE 100 MG TAB PO SCH (08:45)
[2023-02-23 09:52] LABS: Anisocytosis Slight; HCT 27.8 % (34.0-46.0); Hypochromasia Slight; MCH 25.5 pg (25.0-35.0); MCHC 31.9 g/dL (31.0-37.0); MCV 79.9 fL (80.0-100.0); Mean Platelet Volume 9.9; Microcytosis Slight; Platelet Count 110 k/uL (150-450); RBC 3.48 m/uL (3.80-5.40); RDW 18.7 % (11.5-15.5); WBC 2.7 k/uL (3.8-10.6)
[2023-02-23 09:53] LABS: HGB 8.9 gm/dL (11.4-16.0)
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
[2023-02-23] MEDS: LORazepam 0.5 MG TAB PO PRN (13:50)
== END 2023-02-23 14:39 | disposition home or self-care (01) | DRG 897 ==
LOC: EC 09:57 → OBSVTOIN 17:39 → 6NMEDSUR 17:39 → 5NMEDONC 18:33
PROVIDERS: ADMIT Student in an Organized Health Care Education/Training Program; ATTEND Student in an Organized Health Care Education/Training Program
PROC: HZ2ZZZZ Detoxification Services for Substance Abuse Treatment (ICD-10-PCS; principal; 2023-02-21)
DX: F10.229 Alcohol dependence with intoxication, unspecified (principal); E87.0 Hyperosmolality and hypernatremia; K76.6 Portal hypertension; I85.10 Secondary esophageal varices without bleeding; I85.00 Esophageal varices without bleeding; E87.29 Other acidosis; F10.239 Alcohol dependence with withdrawal, unspecified; K70.30 Alcoholic cirrhosis of liver without ascites; K76.0 Fatty (change of) liver, not elsewhere classified; F32.A Depression, unspecified; D50.9 Iron deficiency anemia, unspecified; F41.9 Anxiety disorder, unspecified; E87.6 Hypokalemia; I86.8 Varicose veins of other specified sites; K21.9 Gastro-esophageal reflux disease without esophagitis; F17.290 Nicotine dependence, other tobacco product, uncomplicated; K80.20 Calculus of gallbladder without cholecystitis without obstruction; Y90.8 Blood alcohol level of 240 mg/100 ml or more; Z63.5 Disruption of family by separation and divorce; Z91.414 Personal history of adult intimate partner abuse; Z79.899 Other long term (current) drug therapy; Z88.1 Allergy status to other antibiotic agents
CPT/HCPCS: 36415; 74177; 80053; 80306; 80320; 81001; 81025; 83605; 83690; 83735; 84702; 85025; 85027; 85610; 85730; 96361; 96372; 96374; 96376; 99285

== ENCOUNTER 2023-03-14 19:20 | Emergency (ER) | payer OTHER ==
--- NOTE | 2023-03-14 19:47 | ED ---
Abdominal Pain HPI - General Source: patient, RN notes reviewed Mode of arrival: ambulatory Limitations: no limitations - History of Present Illness MD Complaint: abdominal pain <Susanna Wright - Last Filed: 03/14/23 19:42> <Rhona Shea - Last Filed: 03/15/23 04:32> - General Chief Complaint: Abdominal Pain Stated Complaint: abd pain/withdrawls Time Seen by Provider: 03/14/23 19:43 - History of Present Illness Initial Comments: This is a 42 year old female who presents to the emergency department for abdominal pain. States that this is near her liver and attributes this to liver cirrhosis. She last consumed alcohol around 4pm today, and states that she drinks pints of vodka and whisky at a time. Earlier today, she was found by police sitting by her brother's grave [place] the [place]. Her BAT was >0.3 at that time. She was taken to [facility] and discharged shortly before coming here. (Susanna Wright) 42-year-old female who presents to the ER today with right-sided abdominal pain. Patient reports that she has alcohol abuse disorder, she states that at the time of her menses she becomes agitated and drinks heavily usually one to 2 pints daily. She drinks vodka and fireball. She's been drinking today. She was found sleeping in a cemetery earlier today and taken to an outside hospital for evaluation of alcohol intoxication however she was awake alert oriented and appropriate and was subsequently discharged home. However she then stated she was having the pain in her abdomen source of brought her here for evaluation. Patient describes the pain as right-sided upper abdomen she believes it's her liver she does have a history of cirrhosis. No nausea or vomiting no other complaints. (Rhona Shea) - Related Data Home Medications Medication Instructions Recorded Confirmed ursodioL [Ursodiol] 300 mg PO BID 01/23/22 02/21/23 Citalopram Hydrobromide [CeleXA] 20 mg PO DAILY 02/21/23 02/21/23 Pantoprazole Sodium [Protonix] 20 mg PO BID 02/21/23 02/21/23 Previous Rx's Medication Instructions Recorded LORazepam [Ativan] 1 mg PO TID PRN 3 Days #9 tab 02/23/23 Allergies Allergy/AdvReac Type Severity Reaction Status Date / Time ceftriaxone [From Rocephin] Allergy Rash/Hives Verified 03/14/23 19:43 Review of Systems ROS Other: All systems not noted in ROS Statement are negative. <Susanna Wright - Last Filed: 03/14/23 19:42> ROS Other: All systems not noted in ROS Statement are negative. <Rhona Shea P - Last Filed: 03/15/23 04:32> ROS Statement: Those systems with pertinent positive or pertinent negative responses have been documented in the HPI. Past Medical History Past Medical History: Liver Disease Additional Past Medical History / Comment(s): some esophageal varices, gallston es kidney stones History of Any Multi-Drug Resistant Organisms: None Reported Past Surgical History: Tonsillectomy Past Anesthesia/Blood Transfusion Reactions: No Reported Reaction Past Psychological History: Anxiety, Depression Smoking Status: Current every day smoker, Vaper Past Alcohol Use History: Daily, Heavy Past Drug Use History: Marijuana <Susanna Wright - Last Filed: 03/14/23 19:42> General Exam <Susanna Wright - Last Filed: 03/14/23 19:42> - General Exam Comments Initial Comments: Visual Physical Exam Vital signs reviewed General: Well-appearing, nontoxic, no acute distress. Head: Normocephalic, atraumatic Eyes: PERRLA, EOMI ENT: Airway patent Chest: Nonlabored breathing Skin: No visual rash, normal skin tone Neuro: Alert and oriented 3 Musculoskeletal: No gross abnormalities I performed the QuickNote portion of this chart. Signed Susanna Wright PA-C. (Susanna Wright) Course Vital Signs 03/14/23 03/14/23 03/15/23 19:43 21:17 04:07 Temperature 98 F 98.0 F Pulse Rate 117 H 114 H 97 Respiratory 18 20 18 Rate Blood Pressure 129/81 129/83 113/67 O2 Sat by Pulse 98 98 100 Oximetry Medical Decision Making - Lab Data Result diagrams: 03/14/23 21:39 03/14/23 21:39 <Rhona Shea - Last Filed: 03/15/23 04:32> - Medical Decision Making Was pt. sent in by a medical professional or institution (Dr., PA, CAR DISPATCHER, urgent care, hospital, or residential...) When possible be specific @ -No Did you speak to anyone other than the patient for history (EMS, parent, family, police, friend...)? What history was obtained from this source @ -Family Did you review nursing and triage notes (agree or disagree)? Why? @ -I reviewed and agree with nursing and triage notes Were old charts reviewed (outside hosp., previous admission, EMS record, old EKG, old radiological studies, urgent care reports/EKG's, residential records)? Report findings @ -No old charts were reviewed Differential Diagnosis (chest pain, altered mental status, abdominal pain women, abdominal pain men, vaginal bleeding, weakness, fever, dyspnea, syncope, headache, dizziness, GI bleed, back pain, seizure, CVA, palpatations, mental health, musculoskeletal)? @ -Differential Abdominal Pain Women: Appendicitis, Cholecystitis, diverticulosis, ischemic bowel, pancreatitis, hepatitis, UTI, gastroenteritis, AAA, incarcerated hernia, bowel obstruction, constipation, inflammatory bowel, hepatitis, peptic ulcer disease, splenic infarction, perforated viscus, vulvitis, ovarian torsion, PID, kidney stone, placenta abruption, this is not meant to be an all-inclusive list EKG interpreted by me (3pts min.). @ -As above X-rays interpreted by me (1pt min.). @ -None done CT interpreted by me (1pt min.). @ -None done U/S interpreted by me (1pt. min.). @ -I see no free fluid or thickened gallbladder What testing was considered but not performed or refused? (CT, X-rays, U/S, labs)? Why? @ -None What meds were considered but not given or refused? Why? @ -None Did you discuss the management of the patient with other professionals (professionals i.e. JESE Strickland, CAR DISPATCHER, lab, RT, psych nurse, 7th grade social studies teacher, armature win[employer], teacher, digital marketing officer, lead case manager)? Give summary @ -No Was smoking cessation discussed for >3mins.? @ -No Was critical care preformed (if so, how long)? @ -No Were there social determinants of health that impacted care today? How? (Homelessness, low income, unemployed, alcoholism, drug addiction, transportation, low edu. Level, literacy, decrease access to med. care, half-way, rehab)? @ -Alcoholism Was there de-escalation of care discussed even if they declined (Discuss DNR or withdrawal of care, Hospice)? DNR status @ -No What co-morbidities impacted this encounter? (DM, HTN, Smoking, COPD, CAD, Cancer, CVA, ARF, Chemo, Hep., AIDS, mental health diagnosis, sleep apnea, morbi d obesity)? @ -None Was patient admitted / discharged? Hospital course, mention meds given and route, prescriptions, significant lab abnormalities, going to OR and other pertinent info. @ -Discharge Patient was evaluated she had an elevated alcohol level but clinically was awake alert oriented and appropriate she had right upper quadrant abdominal pain labs are reviewed ALL was elevated bili and AST ALT were elevated, ultrasound was performed gallbladder was unremarkable the liver was relatively normal. Results were discussed with the patient she receives some IV fluids and by mouth Xanax and is stable for discharge home. I did discuss with the patient recommendations for addiction therapy and provided information on outpatient tr eatment Undiagnosed new problem with uncertain prognosis? @ -No Drug Therapy requiring intensive monitoring for toxicity (Heparin, Nitro, Insul in, Cardizem)? @ -No Were any procedures done? @ -No Diagnosis/symptom? @ -Alcohol intoxication Acute, or Chronic, or Acute on Chronic? @ -default Uncomplicated (without systemic symptoms) or Complicated (systemic symptoms)? @ -default Side effects of treatment? @ -No Exacerbation, Progression, or Severe Exacerbation? @ -No Poses a threat to life or bodily function? How? (Chest pain, [place], [place], pneumonia, PE, COPD, DKA, ARF, appy, cholecystitis, CVA, Diverticulitis, Homicidal, Suicidal, threat to staff... and all critical care pts) @ -No (Rhona Shea) - Lab Data Lab Results 03/14/23 03/14/23 03/14/23 Range/Units 21:39 21:39 21:39 WBC 6.7 (3.8-10.6) k/uL RBC 4.03 (3.80-5.40) m/uL Hgb 10.2 L (11.4-16.0) gm/dL Hct 31.4 L (34.0-46.0) % MCV 78.0 L (80.0-100.0) fL MCH 25.2 (25.0-35.0) pg MCHC 32.3 (31.0-37.0) g/dL RDW 18.6 H (11.5-15.5) % Plt Count 268 D (150-450) k/uL MPV 8.7 Neutrophils % 53 % Lymphocytes % 38 % Monocytes % 4 % Eosinophils % 2 % Basophils % 1 % Neutrophils # 3.5 (1.3-7.7) k/uL Lymphocytes # 2.5 (1.0-4.8) k/uL Monocytes # 0.3 (0-1.0) k/uL Eosinophils # 0.2 (0-0.7) k/uL Basophils # 0.0 (0-0.2) k/uL Hypochromasia Slight Poikilocytosis Slight Anisocytosis Slight Microcytosis Slight PT 12.0 (9.0-12.0) sec INR 1.2 H (<1.2) Sodium (137-145) mmol/L Potassium (3.5-5.1) mmol/L Chloride (98-107) mmol/L Carbon Dioxide (22-30) mmol/L Anion Gap mmol/L BUN (7-17) mg/dL Creatinine (0.52-1.04) mg/dL Est GFR (CKD-EPI)AfAm (>60 ml/min/1.73 sqM) Est GFR (CKD-EPI)NonAf (>60 ml/min/1.73 sqM) Glucose (74-99) mg/dL Calcium (8.4-10.2) mg/dL Magnesium (1.6-2.3) mg/dL Total Bilirubin (0.2-1.3) mg/dL AST (14-36) U/L ALT (4-34) U/L Alkaline Phosphatase (38-126) U/L Total Protein (6.3-8.2) g/dL Albumin (3.5-5.0) g/dL Lipase (23-300) U/L Urine HCG, Qual (Not Detectd) Urine Opiates Screen Not Detected (NotDetected) Ur Oxycodone Screen Not Detected (NotDetected) Urine Methadone Screen Not Detected (NotDetected) Ur Propoxyphene Screen Not Detected (NotDetected) Ur Barbiturates Screen Not Detected (NotDetected) U Tricyclic Antidepress Not Detected (NotDetected) Ur Phencyclidine Scrn Not Detected (NotDetected) Ur Amphetamines Screen Not Detected (NotDetected) U Methamphetamines Scrn Not Detected (NotDetected) U Benzodiazepines Scrn Not Detected (NotDetected) Urine Cocaine Screen Not Detected (NotDetected) U Marijuana (THC) Screen Detected H (NotDetected) Serum Alcohol mg/dL 03/14/23 03/14/23 Range/Units 21:39 21:39 WBC (3.8-10.6) k/uL RBC (3.80-5.40) m/uL Hgb (11.4-16.0) gm/dL Hct (34.0-46.0) % MCV (80.0-100.0) fL MCH (25.0-35.0) pg MCHC (31.0-37.0) g/dL RDW (11.5-15.5) % Plt Count (150-450) k/uL MPV Neutrophils % % Lymphocytes % % Monocytes % % Eosinophils % % Basophils % % Neutrophils # (1.3-7.7) k/uL Lymphocytes # (1.0-4.8) k/uL Monocytes # (0-1.0) k/uL Eosinophils # (0-0.7) k/uL Basophils # (0-0.2) k/uL Hypochromasia Poikilocytosis Anisocytosis Microcytosis PT (9.0-12.0) sec INR (<1.2) Sodium 146 H (137-145) mmol/L Potassium 3.2 L (3.5-5.1) mmol/L Chloride 105 (98-107) mmol/L Carbon Dioxide 24 (22-30) mmol/L Anion Gap 17 mmol/L BUN 8 (7-17) mg/dL Creatinine 0.57 (0.52-1.04) mg/dL Est GFR (CKD-EPI)AfAm >90 (>60 ml/min/1.73 sqM) Est GFR (CKD-EPI)NonAf >90 (>60 ml/min/1.73 sqM) Glucose 98 (74-99) mg/dL Calcium 8.5 (8.4-10.2) mg/dL Magnesium 1.8 (1.6-2.3) mg/dL Total Bilirubin 2.1 H (0.2-1.3) mg/dL AST 129 H (14-36) U/L ALT 58 H (4-34) U/L Alkaline Phosphatase 110 (38-126) U/L Total Protein 7.7 (6.3-8.2) g/dL Albumin 4.1 (3.5-5.0) g/dL Lipase 273 (23-300) U/L Urine HCG, Qual Not Detected (Not Detectd) Urine Opiates Screen (NotDetected) Ur Oxycodone Screen (NotDetected) Urine Methadone Screen (NotDetected) Ur Propoxyphene Screen (NotDetected) Ur Barbiturates Screen (NotDetected) U Tricyclic Antidepress (NotDetected) Ur Phencyclidine Scrn (NotDetected) Ur Amphetamines Screen (NotDetected) U Methamphetamines Scrn (NotDetected) U Benzodiazepines Scrn (NotDetected) Urine Cocaine Screen (NotDetected) U Marijuana (THC) Screen (NotDetected) Serum Alcohol 331 H* mg/dL Disposition <Susanna Wright - Last Filed: 03/14/23 19:42> Is patient prescribed a controlled substance at d/c from ED?: No <Rhona Shea - Last Filed: 03/15/23 04:32> Clinical Impression: Alcohol intoxication, Transaminitis Disposition: HOME SELF-CARE Condition: Stable Referrals: Eddie Johnson MD [Primary Care Provider] - 1-2 days
[2023-03-14 21:26] VITALS: TEMP 98
[2023-03-14 21:53] LABS: Anisocytosis Slight; Basophils % (A) 1 %; Eosinophils # (A) 0.2 k/uL (0-0.7); Eosinophils % (A) 2 %; HCT 31.4 % (34.0-46.0); HGB 10.2 gm/dL (11.4-16.0); Hypochromasia Slight; Lymphocytes # (A) 2.5 k/uL (1.0-4.8); Lymphocytes % (A) 38 %; MCH 25.2 pg (25.0-35.0); MCHC 32.3 g/dL (31.0-37.0); Mean Platelet Volume 8.7; Microcytosis Slight; Monocytes # (A) 0.3 k/uL (0-1.0); Monocytes % (A) 4 %; Neutrophils # (A) 3.5 k/uL (1.3-7.7); Neutrophils % (A) 53 %; Poikilocytosis Slight; RBC 4.03 m/uL (3.80-5.40); RDW 18.6 % (11.5-15.5); WBC 6.7 k/uL (3.8-10.6)
[2023-03-14 22:00] LABS: INR 1.2 (<1.2)
[2023-03-14 22:05] LABS: Amphetamine Screen,Urine Not Detected (NotDetected); Barbiturate Screen,Urine Not Detected (NotDetected); Benzodiazepines Screen,Urine Not Detected (NotDetected); Cocaine Screen,Urine Not Detected (NotDetected); Methadone Screen, Urine Not Detected (NotDetected); Opiate Screen,Urine Not Detected (NotDetected); Oxycodone Screen, Urine Not Detected (NotDetected); Phencyclidine Screen,Urine Not Detected (NotDetected); Tricyclic Antidepressant,Urine Not Detected (NotDetected); Urn Cannabinoid Scrn Detected (NotDetected)
[2023-03-14] MEDS ORDERED: MORPHINE SULFATE 2 MG/ML SYRINGE IVP STA (22:06)
[2023-03-14 22:17] LABS: Platelet Count 268 k/uL (150-450)
[2023-03-14 22:27] LABS: ALT 58 U/L (4-34); AST 129 U/L (14-36); African American GFR (CKD) >90 (>60 ml/min/1.73 sqM); Albumin 4.1 g/dL (3.5-5.0); Alkaline Phosphatase 110 U/L (38-126); Anion Gap 17 mmol/L; Blood Urea Nitrogen 8 mg/dL (7-17); Calcium 8.5 mg/dL (8.4-10.2); Carbon Dioxide 24 mmol/L (22-30); Chloride 105 mmol/L (98-107); Glucose 98 mg/dL (74-99); Lipase 273 U/L (23-300); Magnesium 1.8 mg/dL (1.6-2.3); Non-African American GFR(CKD) >90 (>60 ml/min/1.73 sqM); Potassium 3.2 mmol/L (3.5-5.1); Sodium 146 mmol/L (137-145); Total Bilirubin 2.1 mg/dL (0.2-1.3); Total Protein 7.7 g/dL (6.3-8.2)
[2023-03-14 23:07] LABS: Alcohol 331 mg/dL
[2023-03-14] MEDS ORDERED: KETOROLAC 15 MG/ML 1 ML VIAL IVP STA (23:08)
--- NOTE | 2023-03-15 02:25 | US ---
EXAM: US Abdomen Complete CLINICAL HISTORY: ITS.REASON US Reason: Ruq pain TECHNIQUE: Real-time ultrasound of the abdomen with image documentation. COMPARISON: Ultrasound abdomen on 12/23/2022 FINDINGS: Liver: Measures 12.9 cm. Normal echotexture and contour. No focal lesion. Portal vein: Patent with normal direction of flow. Gallbladder: Cholelithiasis. No gallbladder wall thickening or pericholecystic fluid. Negative sonographic Murrell's sign. Biliary tree: No abnormal dilatation. Common bile duct measures 3.8 mm. Pancreas: Visualized portions are unremarkable. Right kidney: Measures 11.1 cm in length. No hydronephrosis or stone. No mass. Peritoneal space: Normal. No free fluid. IVC: Visualized portions are unremarkable. IMPRESSION: Cholelithiasis. No sonographic evidence of acute cholecystitis.
[2023-03-15] MEDS ORDERED: SODIUM CHLORIDE 0.9% 1,000 ML IV STA (03:38)
[2023-03-15 04:08] VITALS: BP 113/67; PULSE 97; RESP 18
[2023-03-15] MEDS ORDERED: ALPRAZolam 0.5 MG TAB PO ONE (04:08)
== END 2023-03-15 05:49 | disposition home or self-care (01) ==
LOC: EC 19:20
DX: F10.129 Alcohol abuse with intoxication, unspecified (principal); R74.01 Elevation of levels of liver transaminase levels; F41.9 Anxiety disorder, unspecified; F32.A Depression, unspecified; F17.290 Nicotine dependence, other tobacco product, uncomplicated; F12.90 Cannabis use, unspecified, uncomplicated; Y90.8 Blood alcohol level of 240 mg/100 ml or more; Z79.899 Other long term (current) drug therapy; Z88.1 Allergy status to other antibiotic agents
CPT/HCPCS: 36415; 80053; 83690; 83735; 85025; 85610; 81025; 80306; 76705; 99284; 96374; 96375; 96361 ×2; G0480; J2270; J1885; 80320

== ENCOUNTER 2023-03-22 12:08 | Emergency (ER) | payer OTHER ==
--- NOTE | 2023-03-22 12:42 | ED ---
Alcohol HPI - General Source: patient, RN notes reviewed Mode of arrival: ambulatory Limitations: no limitations <Susanna Wright - Last Filed: 03/22/23 12:40> - General Source: patient, RN notes reviewed Limitations: no limitations <Watson Sevilla - Last Filed: 03/22/23 19:26> - General Chief Complaint: Alcohol Stated Complaint: ETOH Time Seen by Provider: 03/22/23 12:42 - History of Present Illness Initial Comments: This is a 42 year old female who presents to the emergency department for abdominal pain and alcoholism. States that she has increasing abdominal pain related to cirrhosis and subsequently drank alcohol to try to manage the pain. She last consumed alcohol prior to calling EMS. Also states that she is concern ed about going through withdrawals. Believes that she had at least a pint of alcohol today. (Susanna Wright) Patient is a pleasant 42-year-old female presenting to the emergency Department with alcohol problems. Patient states she drinks too much. Patient does complain of abdominal discomfort. Patient states she has chronic abdominal discomfort from her cirrhosis. Patient admits to having gallstones. Patient states she may be having some problems from gallstones as well. Patient is tolerating oral intake. No fever. No vomiting. No constipation or diarrhea. Patient states she has known gallstone and she has been evaluated for this however they refused to do surgery secondary to her liver problems. (Watson Sevilla) - Related Data Home Medications Medication Instructions Recorded Confirmed No Known Home Medications 03/22/23 03/22/23 Allergies Allergy/AdvReac Type Severity Reaction Status Date / Time ceftriaxone [From Rocephin] Allergy Rash/Hives Verified 03/22/23 17:02 Review of Systems ROS Other: All systems not noted in ROS Statement are negative. <Susanna Wright - Last Filed: 03/22/23 12:40> ROS Other: All systems not noted in ROS Statement are negative. Constitutional: Denies: fever Eyes: Denies: eye pain ENT: Denies: ear pain Respiratory: Denies: cough Cardiovascular: Denies: chest pain Endocrine: Denies: fatigue Gastrointestinal: Reports: as per HPI, abdominal pain Musculoskeletal: Denies: back pain Skin: Denies: rash Neurological: Denies: weakness <Watson Sevilla - Last Filed: 03/22/23 19:26> ROS Statement: Those systems with pertinent positive or pertinent negative responses have been documented in the HPI. Past Medical History Past Medical History: Liver Disease Additional Past Medical History / Comment(s): some esophageal varices, gallstones kidney stones History of Any Multi-Drug Resistant Organisms: None Reported Past Surgical History: Tonsillectomy Past Anesthesia/Blood Transfusion Reactions: No Reported Reaction Past Psychological History: Anxiety, Depression Smoking Status: Current every day smoker, Vaper Past Alcohol Use History: Daily, Heavy Past Drug Use History: Marijuana <Susanna Wright - Last Filed: 03/22/23 12:40> General Exam <Susanna Wright - Last Filed: 03/22/23 12:40> Limitations: no limitations General appearance: alert, in no apparent distress Head exam: Present: normocephalic Eye exam: Present: normal appearance Neck exam: Present: normal inspection Respiratory exam: Present: normal lung sounds bilaterally Cardiovascular Exam: Present: regular rate, normal rhythm Expanded Peripheral pulses: 2+: Posterior Tibialis (R), Posterior Tibialis (L), Dorsalis Pedis (R), Dorsalis Pedis (L) GI/Abdominal exam: Present: soft, tenderness (Mild to moderate tenderness right upper quadrant), normal bowel sounds. Absent: distended, guarding, rebound, rigid, pulsatile mass Extremities exam: Present: normal inspection Neurological exam: Present: alert Psychiatric exam: Present: normal affect, normal mood Skin exam: Present: normal color <Watson Sevilla - Last Filed: 03/22/23 19:26> - General Exam Comments Initial Comments: Visual Physical Exam Vital signs reviewed General: Well-appearing, nontoxic, no acute distress. Head: Normocephalic, atraumatic Eyes: PERRLA, EOMI ENT: Airway patent Chest: Nonlabored breathing Skin: No visual rash, normal skin tone Neuro: Alert and oriented 3 Musculoskeletal: No gross abnormalities I performed the QuickNote portion of this chart. Signed Susanna Wright PA-C. (Susanna Wright) Course Vital Signs 03/22/23 03/22/23 03/22/23 12:41 13:50 15:41 Temperature 98.1 F Pulse Rate 118 H 120 H 100 Respiratory 16 18 Rate Blood Pressure 131/79 125/71 112/75 O2 Sat by Pulse 96 97 98 Oximetry 03/22/23 03/22/23 16:40 18:27 Temperature 98.4 F Pulse Rate 113 H 101 H Respiratory 20 18 Rate Blood Pressure 125/83 93/54 O2 Sat by Pulse 97 98 Oximetry Medical Decision Making - Lab Data Result diagrams: 03/22/23 13:50 03/22/23 13:50 <Watson Sevilla - Last Filed: 03/22/23 19:26> - Medical Decision Making Was pt. sent in by a medical professional or institution (, PA, PHOTOGRAPHIC LABORATORY SUPERVISOR, urgent care, hospital, or [facility]...) When possible be specific @ -No Did you speak to anyone other than the patient for history (EMS, parent, family, police, friend...)? What history was obtained from this source @ -No Did you review nursing and triage notes (agree or disagree)? Why? @ -I reviewed and agree with nursing and triage notes Were old charts reviewed (outside hosp., previous admission, EMS record, old EKG, old radiological studies, urgent care reports/EKG's, [facility] records)? Report findings @ -Previous ultrasound and lab work reviewed Differential Diagnosis (chest pain, altered mental status, abdominal pain women, abdominal pain men, vaginal bleeding, weakness, fever, dyspnea, syncope, headache, dizziness, GI bleed, back pain, seizure, CVA, palpatations, mental health, musculoskeletal)? @ -Differential Abdominal Pain Women: Appendicitis, Cholecystitis, diverticulosis, ischemic bowel, pancreatitis, hepatitis, UTI, gastroenteritis, AAA, incarcerated hernia, bowel obstruction, constipation, inflammatory bowel, hepatitis, peptic ulcer disease, splenic infarction, perforated viscus, vulvitis, ovarian torsion, PID, kidney stone, placenta abruption, this is not meant to be an all-inclusive list EKG interpreted by me (3pts min.). @ -As above X-rays interpreted by me (1pt min.). @ -X-ray shows large gallstone on KUB. CT interpreted by me (1pt min.). @ -None done U/S interpreted by me (1pt. min.). @ -report reviewed What testing was considered but not performed or refused? (CT, X-rays, U/S, labs)? Why? @ -None What meds were considered but not given or refused? Why? @ -None Did you discuss the management of the patient with other professionals (professionals i.e. Dr., PA, PHOTOGRAPHIC LABORATORY SUPERVISOR, lab, RT, psych nurse, oncology social work, clock repairer, teacher, information assurance officer, field nurse case manager)? Give summary @ -No Was smoking cessation discussed for >3mins.? @ -No Was critical care preformed (if so, how long)? @ -No Were there social determinants of health that impacted care today? How? (Homelessness, low income, unemployed, alcoholism, drug addiction, transportation, low edu. Level, literacy, decrease access to med. care, [facility], re hab)? @ -No Was there de-escalation of care discussed even if they declined (Discuss DNR or withdrawal of care, Hospice)? DNR status @ -No What co-morbidities impacted this encounter? (DM, HTN, Smoking, COPD, CAD, Cancer, CVA, ARF, Chemo, Hep., AIDS, mental health diagnosis, sleep apnea, morbid obesity)? @ -None Was patient admitted / discharged? Hospital course, mention meds given and route, prescriptions, significant lab abnormalities, going to OR and other pertinent info. @ -Patient reevaluated and feeling much better patient requesting Ativan. Patient updated on results and need for follow-up, specifically updated recommended follow-up with [facility] for alcohol Undiagnosed new problem with uncertain prognosis? @ -No Drug Therapy requiring intensive monitoring for toxicity (Heparin, Nitro, I nsulin, Cardizem)? @ -No Were any procedures done? @ -No Diagnosis/symptom? @ -Alcohol intoxication, abdominal pain Acute, or Chronic, or Acute on Chronic? @ -Acute on chronic, acute on chronic Uncomplicated (without systemic symptoms) or Complicated (systemic symptoms)? @ -default Side effects of treatment? @ -No Exacerbation, Progression, or Severe Exacerbation? @ -No Poses a threat to life or bodily function? How? (Chest pain, USA, CT, pneumonia, PE, COPD, DKA, ARF, appy, cholecystitis, CVA, Diverticulitis, Homicidal, Suicida l, threat to staff... and all critical care pts) @ -No (Watson Sevilla) - Lab Data Lab Results 03/22/23 03/22/23 03/22/23 Range/Units 13:50 13:50 13:50 WBC 5.7 (3.8-10.6) k/uL RBC 4.12 (3.80-5.40) m/uL Hgb 10.6 L (11.4-16.0) gm/dL Hct 32.7 L (34.0-46.0) % MCV 79.4 L (80.0-100.0) fL MCH 25.8 (25.0-35.0) pg MCHC 32.5 (31.0-37.0) g/dL RDW 19.3 H (11.5-15.5) % Plt Count 153 (150-450) k/uL MPV 10.2 Neutrophils % 62 % Lymphocytes % 27 % Monocytes % 3 % Eosinophils % 6 % Basophils % 0 % Neutrophils # 3.5 (1.3-7.7) k/uL Lymphocytes # 1.5 (1.0-4.8) k/uL Monocytes # 0.2 (0-1.0) k/uL Eosinophils # 0.3 (0-0.7) k/uL Basophils # 0.0 (0-0.2) k/uL Hypochromasia Moderate Anisocytosis Slight Microcytosis Slight PT 12.8 H (9.0-12.0) sec INR 1.3 H (<1.2) Sodium 145 (137-145) mmol/L Potassium 3.6 (3.5-5.1) mmol/L Chloride 106 (98-107) mmol/L Carbon Dioxide 23 (22-30) mmol/L Anion Gap 16 mmol/L BUN 6 L (7-17) mg/dL Creatinine 0.56 (0.52-1.04) mg/dL Est GFR (CKD-EPI)AfAm >90 (>60 ml/min/1.73 sqM) Est GFR (CKD-EPI)NonAf >90 (>60 ml/min/1.73 sqM) Glucose 137 H (74-99) mg/dL Calcium 8.8 (8.4-10.2) mg/dL Magnesium 1.8 (1.6-2.3) mg/dL Total Bilirubin 3.0 H (0.2-1.3) mg/dL AST 226 H (14-36) U/L ALT 102 H (4-34) U/L Alkaline Phosphatase 153 H (38-126) U/L Total Protein 7.6 (6.3-8.2) g/dL Albumin 3.9 (3.5-5.0) g/dL Amylase (30-110) U/L Lipase (23-300) U/L Serum Alcohol 255 H* mg/dL 03/22/23 Range/Units 16:57 WBC (3.8-10.6) k/uL RBC (3.80-5.40) m/uL Hgb (11.4-16.0) gm/dL Hct (34.0-46.0) % MCV (80.0-100.0) fL MCH (25.0-35.0) pg MCHC (31.0-37.0) g/dL RDW (11.5-15.5) % Plt Count (150-450) k/uL MPV Neutrophils % % Lymphocytes % % Monocytes % % Eosinophils % % Basophils % % Neutrophils # (1.3-7.7) k/uL Lymphocytes # (1.0-4.8) k/uL Monocytes # (0-1.0) k/uL Eosinophils # (0-0.7) k/uL Basophils # (0-0.2) k/uL Hypochromasia Anisocytosis Microcytosis PT (9.0-12.0) sec INR (<1.2) Sodium (137-145) mmol/L Potassium (3.5-5.1) mmol/L Chloride (98-107) mmol/L Carbon Dioxide (22-30) mmol/L Anion Gap mmol/L BUN (7-17) mg/dL Creatinine (0.52-1.04) mg/dL Est GFR (CKD-EPI)AfAm (>60 ml/min/1.73 sqM) Est GFR (CKD-EPI)NonAf (>60 ml/min/1.73 sqM) Glucose (74-99) mg/dL Calcium (8.4-10.2) mg/dL Magnesium (1.6-2.3) mg/dL Total Bilirubin (0.2-1.3) mg/dL AST (14-36) U/L ALT (4-34) U/L Alkaline Phosphatase (38-126) U/L Total Protein (6.3-8.2) g/dL Albumin (3.5-5.0) g/dL Amylase 65 (30-110) U/L Lipase 332 H (23-300) U/L Serum Alcohol mg/dL Disposition <Susanna Wright - Last Filed: 03/22/23 12:40> Is patient prescribed a controlled substance at d/c from ED?: No Time of Disposition: 19:25 <Watson Sevilla - Last Filed: 03/22/23 19:26> Clinical Impression: Alcoholic intoxication, Abdominal pain Disposition: HOME SELF-CARE Condition: Stable Instructions (If sedation given, give patient instructions): Alcohol Intoxication (ED), Abdominal Pain (ED) Additional Instructions: Discontinue alcohol use. Follow-up with primary care physician in the next day or 2 for recheck. Follow-up with rehab facility such as [facility]. Return for increased pain, fever, worsening or changing symptoms or other concerns. Referrals: Fermin Corea MD [STAFF PHYSICIAN] - 1-2 days Forms: Outpatient Counseling, Area PCPs, In Substance Abuse Facilities
[2023-03-22 14:05] LABS: Anisocytosis Slight; Basophils % (A) 0 %; Eosinophils # (A) 0.3 k/uL (0-0.7); Eosinophils % (A) 6 %; HCT 32.7 % (34.0-46.0); HGB 10.6 gm/dL (11.4-16.0); Hypochromasia Moderate; Lymphocytes # (A) 1.5 k/uL (1.0-4.8); Lymphocytes % (A) 27 %; MCH 25.8 pg (25.0-35.0); MCHC 32.5 g/dL (31.0-37.0); MCV 79.4 fL (80.0-100.0); Mean Platelet Volume 10.2; Microcytosis Slight; Monocytes # (A) 0.2 k/uL (0-1.0); Monocytes % (A) 3 %; Neutrophils # (A) 3.5 k/uL (1.3-7.7); Neutrophils % (A) 62 %; Platelet Count 153 k/uL (150-450); RBC 4.12 m/uL (3.80-5.40); RDW 19.3 % (11.5-15.5); WBC 5.7 k/uL (3.8-10.6)
[2023-03-22 14:09] LABS: INR 1.3 (<1.2); Prothrombin Time 12.8 sec (9.0-12.0)
[2023-03-22 14:24] LABS: ALT 102 U/L (4-34); AST 226 U/L (14-36); African American GFR (CKD) >90 (>60 ml/min/1.73 sqM); Albumin 3.9 g/dL (3.5-5.0); Alkaline Phosphatase 153 U/L (38-126); Anion Gap 16 mmol/L; Blood Urea Nitrogen 6 mg/dL (7-17); Calcium 8.8 mg/dL (8.4-10.2); Carbon Dioxide 23 mmol/L (22-30); Chloride 106 mmol/L (98-107); Glucose 137 mg/dL (74-99); Magnesium 1.8 mg/dL (1.6-2.3); Non-African American GFR(CKD) >90 (>60 ml/min/1.73 sqM); Potassium 3.6 mmol/L (3.5-5.1); Sodium 145 mmol/L (137-145); Total Protein 7.6 g/dL (6.3-8.2)
[2023-03-22 14:29] LABS: Alcohol 255 mg/dL
[2023-03-22] MEDS ORDERED: KETOROLAC 15 MG/ML 1 ML VIAL IVP STA (16:32)
[2023-03-22] MEDS ORDERED: SODIUM CHLORIDE 0.9% 1,000 ML IV STA (16:32)
[2023-03-22] MEDS ORDERED: FAMOTIDINE 20 MG/2 ML VIAL IV STA (16:32)
[2023-03-22 16:56] VITALS: TEMP 98.4
[2023-03-22 17:14] LABS: Amylase 65 U/L (30-110); Lipase 332 U/L (23-300)
--- NOTE | 2023-03-22 17:45 | US ---
EXAMINATION TYPE: US gallbladder DATE OF EXAM: 03/22/2023 COMPARISON: NONE CLINICAL INDICATION: Female, 42 years old with history of Ultrasound gallbladder and pancreas,; alcoh olic, cirrhosis, GB stones since 2016 TECHNIQUE: Multiple sonographic images of the right upper quadrant are obtained. FINDINGS: EXAM MEASUREMENTS: Liver Length: 15.8 cm Gallbladder Wall: 0.2 cm CBD: 0.6 cm Right Kidney: unable to assess SOCK LINING STITCHER NOTES:Very difficult to penetrate Pancreas: Only a small portion of the pancreatic body is seen limiting the evaluation. Remainder is obscured by bowel gas shadowing. Liver: heterogeneous and difficult to penetrate Gallbladder: large GB stones, no wall thickening Evidence for sonographic Murrell's sign: no CBD: wnl Right Kidney: unable to penetrate due to bowel gas varicosity seen epigastric region IMPRESSION: 1. Heterogeneously attenuating liver suggests underlying nonspecific hepatocellular disease. 2. Large gallstones. No obvious inflammatory wall thickening. 3. Bile duct upper limits of normal in caliber at 6 mm in the chronic dilatation. Correlate with yovany line phosphatase and bilirubin levels. 4. A large varicosity in the epigastric region compatible with a recanalized umbilical vein suggestin g underlying portal venous hypertension. 5. Very limited assessment of the pancreas.
[2023-03-22 18:29] VITALS: BP 93/54; PULSE 101; RESP 18
--- NOTE | 2023-03-22 18:51 | XR ---
EXAMINATION TYPE: XR abdomen 1V DATE OF EXAM: 03/22/2023 Comparison: 10/25/2022 and 02/21/2023 Clinical History: 42-year-old female with abdominal pain Findings: Multiple large right upper quadrant gallstones measuring up to 3.1 cm. A 5 mm calcification left para median mid abdomen noted. Multiple pelvic fluid was. Nonobstructive bowel gas pattern. No significant stool burden. No evidence for free intraperitoneal air. Impression: 1. A couple large gallstones measuring up to 3.1 cm. 2. 5 mm calcification left paramedian mid abdomen. When correlating with patient's recent CT, this se ems to represent a phlebolith rather than a renal stone. 3. No evidence for free air or bowel obstruction. No significant stool burden.
[2023-03-22] MEDS ORDERED: LORazepam 1 MG TAB PO STA (19:26)
== END 2023-03-22 20:03 | disposition home or self-care (01) ==
LOC: EC 12:08
DX: K80.20 Calculus of gallbladder without cholecystitis without obstruction (principal); F10.129 Alcohol abuse with intoxication, unspecified; Z88.1 Allergy status to other antibiotic agents; F17.290 Nicotine dependence, other tobacco product, uncomplicated; F12.90 Cannabis use, unspecified, uncomplicated; Y90.8 Blood alcohol level of 240 mg/100 ml or more
CPT/HCPCS: 36415; 80053; 82150; 83690; 83735; 85025; 85610; 74018; 76705; 99285; 96374; 96375; 96361 ×3; G0480; J3490; J1885; 80320